=== PATIENT | male | born 1960 | race Caucasian/White ===

== ENCOUNTER 2017-05-20 21:10 | Emergency (ER) | payer BC ==
[2017-05-20 21:20] VITALS: RESP 18; TEMP 98.3
--- NOTE | 2017-05-20 21:23 | ED ---
Chest Pain HPI - General Chief Complaint: Chest Pain Stated Complaint: Chest Pain Time Seen by Provider: 05/20/17 21:12 Source: patient, EMS Mode of arrival: EMS Limitations: no limitations - History of Present Illness Initial Comments: This patient is a 56-year-old man who states that he's been having about 3 days of intermittent left-sided chest pains. He states that it became more intense tonight while he was playing cards. EMS was phoned and they did give him a nitroglycerin which she states has relieve the pain. Patient had radiation of the pain to his jaw. He has not noted any other relieving or any worsening factors. He denies associated symptoms. MD Complaint: chest pain Onset/Timin -: days(s) Onset: during rest Pain Location: left chest Pain Radiation: jaw/teeth Severity: moderate Quality: tightness Consistency: intermittent, now resolved Improves With: nitroglycerin Worsens With: nothing Treatments Prior to Arrival: aspirin, nitroglycerin - Related Data Home Medications Medication Instructions Recorded Confirmed Aspirin 81 mg PO HS 05/18/15 06/07/15 Atorvastatin [Lipitor] 40 mg PO HS 05/18/15 06/07/15 Cilostazol [Pletal] 100 mg PO BID 05/18/15 06/07/15 Allergies Allergy/AdvReac Type Severity Reaction Status Date / Time No Known Allergies Allergy Verified 05/18/15 20:05 Review of Systems ROS Statement: Those systems with pertinent positive or pertinent negative responses have been documented in the HPI. ROS Other: All systems not noted in ROS Statement are negative. Constitutional: Denies: fever, chills, weakness Respiratory: Denies: cough, dyspnea Cardiovascular: Reports: as per HPI, chest pain. Denies: palpitations, dyspnea on exertion, orthopnea, edema, syncope Gastrointestinal: Denies: abdominal pain, vomiting, diarrhea Genitourinary: Denies: dysuria, hematuria Skin: Denies: rash Neurological: Denies: headache, weakness, numbness Hematological/Lymphatic: Denies: easy bleeding EKG Findings - EKG Results: EKG: interpreted by MARIZOL WNL, sinus rhythm (Rate 74 bpm), normal axis, normal QRS, normal ST/T, no acute changes - AL, Pacemaker, Normal: Normal tracing: normal tracing Past Medical History Additional Past Medical History / Comment(s): Aortic blockage, High Cholestrol, Chronic Leg Pain. History of Any Multi-Drug Resistant Organisms: None Reported Past Surgical History: Cholecystectomy Past Anesthesia/Blood Transfusion Reactions: No Reported Reaction Past Psychological History: No Psychological Hx Reported Smoking Status: Current every day smoker Past Alcohol Use History: None Reported Past Drug Use History: None Reported - Past Family History Father Family Medical History: Hyperlipidemia General Exam Limitations: no limitations General appearance: alert, in no apparent distress Head exam: Present: atraumatic, normocephalic Eye exam: Present: normal appearance Neck exam: Present: normal inspection, full ROM Respiratory exam: Present: normal lung sounds bilaterally. Absent: respiratory distress, wheezes, rales, rhonchi, stridor, chest wall tenderness Cardiovascular Exam: Present: regular rate, normal rhythm, normal heart sounds. Absent: systolic murmur, diastolic murmur, rubs, gallop GI/Abdominal exam: Present: soft. Absent: distended, tenderness, guarding, rebound, mass Extremities exam: Present: normal inspection, normal capillary refill. Absent: pedal edema, calf tenderness Back exam: Present: normal inspection. Absent: CVA tenderness (R), CVA tenderness (L) Neurological exam: Present: alert Skin exam: Present: warm, dry, intact, normal color. Absent: rash Course Vital Signs 05/20/17 05/20/17 21:15 22:47 Temperature 98.3 F Pulse Rate 79 69 Respiratory 18 18 Rate Blood Pressure 124/77 101/61 O2 Sat by Pulse 96 96 Oximetry Chest Pain MDM - MDM Discussed the findings with the patient, and on reevaluation he remains asymptomatic. Recommended telemetry admission overnight as well as cardiology consultation, though I suspect that is more likely patient's symptoms are related to some pancreatitis. Also recommended imaging. The patient states that he would much rather go home and follow-up to have the imaging done and will return if the symptoms recur or if there is worsening in any way. Patient does understand that we have not been able to rule out cardiac etiology of pain and will return if any of the symptoms recur. Understands there is small possibility of AL, permanent disability/ Disposition Clinical Impression: Chest pain, Pancreatitis Disposition: Left Against Medical Advice Condition: Good Instructions: Chest Pain (ED), Pancreatitis (ED) Referrals: Yaya Rojas DO [Primary Care Provider] - 1-2 days
[2017-05-20 21:34] LABS: Basophils # (A) 0.1 k/uL (0-0.2); Basophils % (A) 1 %; CH 33.9; CHCM 34.3; Eosinophils # (A) 0.3 k/uL (0-0.7); Eosinophils % (A) 3 %; HCT 43.2 % (39.0-53.0); HDW 2.32; HGB 14.5 gm/dL (13.0-17.5); Luc # (Auto) 0.33; Luc % (Auto) 3; Lymphocytes # (A) 4.5 k/uL (1.0-4.8); Lymphocytes % (A) 44 %; MCH 33.3 pg (25.0-35.0); MCHC 33.5 g/dL (31.0-37.0); MCV 99.6 fL (80.0-100.0); Mean Platelet Volume 7.7; Monocytes # (A) 0.6 k/uL (0-1.0); Monocytes % (A) 6 %; Neutrophils # (A) 4.3 k/uL (1.3-7.7); Neutrophils % (A) 42 %; RBC 4.34 m/uL (4.30-5.90); RDW 14.5 % (11.5-15.5); WBC 10.1 k/uL (3.8-10.6); WBC (Perox) 9.79
[2017-05-20 21:48] LABS: ALT 35 U/L (21-72); AST 27 U/L (17-59); Alkaline Phosphatase 104 U/L (38-126); Amylase 207 U/L (30-110); Anion Gap 12 mmol/L; Blood Urea Nitrogen 8 mg/dL (9-20); Calcium 8.9 mg/dL (8.4-10.2); Carbon Dioxide 22 mmol/L (22-30); Chloride 108 mmol/L (98-107); Glucose 81 mg/dL (74-99); Magnesium 1.8 mg/dL (1.6-2.3); Non-African American GFR(MDRD) >60 (>60 ml/min/1.73 sqM); Potassium 4.4 mmol/L (3.5-5.1); Sodium 142 mmol/L (137-145); Total Bilirubin 0.3 mg/dL (0.2-1.3); Total Protein 6.6 g/dL (6.3-8.2)
[2017-05-20 21:50] LABS: INR 0.9 (<1.2); Partial Thromboplastin Time 25.7 sec (22.0-30.0); Prothrombin Time 9.7 sec (9.0-12.0)
--- NOTE | 2017-05-20 21:52 | XR ---
EXAMINATION TYPE: XR chest 2V DATE OF EXAM: 05/20/2017 COMPARISON: 06/07/2015 INDICATION: Chest pain 3 days TECHNIQUE: Frontal and lateral views of the chest are obtained. FINDINGS: The heart size is normal. The pulmonary vasculature is normal. The lungs are clear. IMPRESSION: 1. No acute pulmonary process.
[2017-05-20 22:48] VITALS: BP 101/61; PULSE 69
== END 2017-05-20 23:35 | disposition left against medical advice (07) ==
LOC: EC 21:10
DX: K85.90 Acute pancreatitis without necrosis or infection, unspecified (principal); R07.89 Other chest pain; F17.200 Nicotine dependence, unspecified, uncomplicated; Z79.82 Long term (current) use of aspirin; Z79.899 Other long term (current) drug therapy
CPT/HCPCS: 36415; 71020; 80053; 82150; 83690; 83735; 84484; 85025; 85379; 85610; 85730; 93005; 99285

== ENCOUNTER → 2017-06-06 | Outpatient (CLI) | payer BC ==
--- NOTE | 2017-06-07 07:41 | USB ---
Reason for exam: clinical finding. History: Family history of breast cancer in sister at age 58 and breast cancer in maternal grandmother. Indicated problem(s): lump or thickening in the left breast. Physical Findings: Nurse Summary: Patient complains of left breast lump x 3 years 10-11 o'clock (nurse mj). US Breast LT Left breast ultrasound includes all four quadrants, the retroareolar region and axilla. Finding demonstrates a 3.3 x 2.3 x 0.7cm oval, hyperechoic lesion at 11 o'clock palpable, suspect lipoma. These results were verbally communicated with the patient and result sheet given to the patient on 06/06/17. ASSESSMENT: Probably benign, BI-RAD 3 RECOMMENDATION: Clinical management of the left breast. CONSIDER SURGICAL CONSULTATION.
== END | disposition home or self-care (01) ==
LOC: RADUSWWP 15:31
PROVIDERS: ATTEND Family Medicine
DX: N63 Unspecified lump in breast (principal)

== ENCOUNTER 2018-01-06 03:00 | Emergency (ER) | payer BC, OTHER ==
--- NOTE | 2018-01-06 03:11 | ED ---
General Adult HPI - General Stated complaint: Nausea Time Seen by Provider: 01/06/18 03:00 Source: RN notes reviewed - History of Present Illness Initial comments: This is a 57-year-old male who presents emergency Department stating he woke up and was very nauseated he try to go to the bathroom but when he started walking he became very lightheaded and dizzy and he didn't feel like he couldn't walk anymore. So he told his called EMS and brought to the emergency department. Patient denies any vomiting or diarrhea. Patient denies any abdominal discomfort. Patient denies any chest pain difficulty breathing shortness of breath or palpitations. Patient states prior to bed he felt fine. Patient denies any fever chills or cough. Patient states she got some Zofran in the ambulance and that seemed to help the nausea. Patient states lying in bed he is no longer dizzy. Patient denies headache patient denies numbness weakness. - Related Data Home Medications Medication Instructions Recorded Confirmed Aspirin 81 mg PO HS 05/18/15 06/07/15 Atorvastatin [Lipitor] 40 mg PO HS 05/18/15 06/07/15 Cilostazol [Pletal] 100 mg PO BID 05/18/15 06/07/15 Allergies Allergy/AdvReac Type Severity Reaction Status Date / Time No Known Allergies Allergy Verified 05/18/15 20:05 Review of Systems ROS Statement: Those systems with pertinent positive or pertinent negative responses have been documented in the HPI. ROS Other: All systems not noted in ROS Statement are negative. Past Medical History Additional Past Medical History / Comment(s): Aortic blockage, High Cholestrol, Chronic Leg Pain. History of Any Multi-Drug Resistant Organisms: None Reported Past Surgical History: Cholecystectomy Past Anesthesia/Blood Transfusion Reactions: No Reported Reaction Past Psychological History: No Psychological Hx Reported Smoking Status: Current every day smoker Past Alcohol Use History: None Reported Past Drug Use History: None Reported - Past Family History Father Family Medical History: Hyperlipidemia General Exam - General Exam Comments Initial Comments: GENERAL: Patient is well-developed and well-nourished. Patient is nontoxic and well- hydrated and is in no acute distress. ENT: Neck is soft and supple. No significant lymphadenopathy is noted. Oropharynx is clear. Moist mucous membranes. Neck has full range of motion without eliciting any pain. EYES: The sclera were anicteric and conjunctiva were pink and moist. Extraocular movements were intact and pupils were equal round and reactive to light. Eyelids were unremarkable. PULMONARY: Unlabored respirations. Good breath sounds bilaterally. No audible rales rhonchi or wheezing was noted. CARDIOVASCULAR: There is a regular rate and rhythm without any murmurs gallops or rubs. ABDOMEN: Soft and nontender with normal bowel sounds. No palpable organomegaly was noted. There is no palpable pulsatile mass. SKIN: Skin is clear with no lesions or rashes and otherwise unremarkable. NEUROLOGIC: Patient is alert and oriented x3. Cranial nerves II through XII are grossly intact. Motor and sensory are also intact. Normal speech, volume and content. Symmetrical smile. MUSCULOSKELETAL: Normal extremities with adequate strength and full range of motion. No lower extremity swelling or edema. No calf tenderness. LYMPHATICS: No significant lymphadenopathy is noted PSYCHIATRIC: Normal psychiatric evaluation. Normal interpersonal interactions appears functionally intact in deals appropriately with others. No signs of depression. Course Vital Signs 01/06/18 01/06/18 01/06/18 03:08 03:20 03:25 Temperature 97.0 F L Pulse Rate 70 Pulse Rate [ 68 Prone] Pulse Rate [ 64 Sitting] Pulse Rate [ Standing] Respiratory 14 16 16 Rate Blood Pressure 127/82 Blood Pressure 119/66 130/73 [Supine] O2 Sat by Pulse 92 L Oximetry 01/06/18 01/06/18 01/06/18 04:37 04:38 04:44 Temperature 97.5 F L Pulse Rate 72 69 Pulse Rate [ Prone] Pulse Rate [ Sitting] Pulse Rate [ 73 Standing] Respiratory 18 16 Rate Blood Pressure 132/70 116/65 Blood Pressure 134/81 [Supine] O2 Sat by Pulse 99 93 L Oximetry Medical Decision Making - Medical Decision Making No nursing notes that the patient was diaphoretic he was not at all diaphoretic on arrival EKG shows normal sinus rhythm at 63 bpm TX interval 170 QRS is 90 QT intervals 414 QTC is 423. Patient has no ST segment elevation or depression or T wave abnormalities are noted Patient is no longer nauseated. Patient still longer dizzy. Patient was able to ambulate around the emergency department without problem. - Lab Data Result diagrams: 01/06/18 03:23 01/06/18 03:23 Lab Results 01/06/18 01/06/18 01/06/18 Range/Units 03:14 03:23 03:23 WBC 9.7 (3.8-10.6) k/uL RBC 4.45 (4.30-5.90) m/uL Hgb 14.5 (13.0-17.5) gm/dL Hct 41.2 (39.0-53.0) % MCV 92.6 (80.0-100.0) fL MCH 32.6 (25.0-35.0) pg MCHC 35.2 (31.0-37.0) g/dL RDW 13.4 (11.5-15.5) % Plt Count 309 (150-450) k/uL Neutrophils % 52 % Lymphocytes % 36 % Monocytes % 6 % Eosinophils % 3 % Basophils % 0 % Neutrophils # 5.0 (1.3-7.7) k/uL Lymphocytes # 3.5 (1.0-4.8) k/uL Monocytes # 0.5 (0-1.0) k/uL Eosinophils # 0.3 (0-0.7) k/uL Basophils # 0.0 (0-0.2) k/uL Sodium (137-145) mmol/L Potassium (3.5-5.1) mmol/L Chloride (98-107) mmol/L Carbon Dioxide (22-30) mmol/L Anion Gap mmol/L BUN (9-20) mg/dL Creatinine (0.66-1.25) mg/dL Est GFR (CKD-EPI)AfAm (>60 ml/min/1.73 sqM) Est GFR (CKD-EPI)NonAf (>60 ml/min/1.73 sqM) Glucose (74-99) mg/dL POC Glucose (mg/dL) 99 (75-99) mg/dL POC Glu [employer] ID Karthikeyan Collazo Calcium (8.4-10.2) mg/dL Magnesium (1.6-2.3) mg/dL Total Bilirubin (0.2-1.3) mg/dL AST (17-59) U/L ALT (21-72) U/L Alkaline Phosphatase (38-126) U/L Total Creatine Kinase 94 (55-170) U/L CK-MB (CK-2) 0.7 (0.0-2.4) ng/mL CK-MB (CK-2) Rel Index 0.7 Troponin I <0.012 (0.000-0.034) ng/mL Total Protein (6.3-8.2) g/dL Albumin (3.5-5.0) g/dL 01/06/18 Range/Units 03:23 WBC (3.8-10.6) k/uL RBC (4.30-5.90) m/uL Hgb (13.0-17.5) gm/dL Hct (39.0-53.0) % MCV (80.0-100.0) fL MCH (25.0-35.0) pg MCHC (31.0-37.0) g/dL RDW (11.5-15.5) % Plt Count (150-450) k/uL Neutrophils % % Lymphocytes % % Monocytes % % Eosinophils % % Basophils % % Neutrophils # (1.3-7.7) k/uL Lymphocytes # (1.0-4.8) k/uL Monocytes # (0-1.0) k/uL Eosinophils # (0-0.7) k/uL Basophils # (0-0.2) k/uL Sodium 140 (137-145) mmol/L Potassium 4.2 (3.5-5.1) mmol/L Chloride 107 (98-107) mmol/L Carbon Dioxide 23 (22-30) mmol/L Anion Gap 10 mmol/L BUN 13 (9-20) mg/dL Creatinine 0.74 (0.66-1.25) mg/dL Est GFR (CKD-EPI)AfAm >90 (>60 ml/min/1.73 sqM) Est GFR (CKD-EPI)NonAf >90 (>60 ml/min/1.73 sqM) Glucose 97 (74-99) mg/dL POC Glucose (mg/dL) (75-99) mg/dL POC Glu [employer] ID Calcium 9.0 (8.4-10.2) mg/dL Magnesium 2.0 (1.6-2.3) mg/dL Total Bilirubin 0.3 (0.2-1.3) mg/dL AST 29 (17-59) U/L ALT 50 (21-72) U/L Alkaline Phosphatase 117 (38-126) U/L Total Creatine Kinase (55-170) U/L CK-MB (CK-2) (0.0-2.4) ng/mL CK-MB (CK-2) Rel Index Troponin I (0.000-0.034) ng/mL Total Protein 6.0 L (6.3-8.2) g/dL Albumin 3.4 L (3.5-5.0) g/dL Critical Care Time Critical Care Time: Yes Total Critical Care Time: 35 Disposition Clinical Impression: Nausea, Dizziness Disposition: HOME SELF-CARE Condition: Good Instructions: Dizziness (ED) Referrals: Yaya Rojas DO [Primary Care Provider] - 1-2 days Time of Disposition: 04:38
[2018-01-06 03:16] LABS: Glucose,Whole Blood 99 mg/dL (75-99)
[2018-01-06 03:39] LABS: Basophils % (A) 0 %; Eosinophils # (A) 0.3 k/uL (0-0.7); Eosinophils % (A) 3 %; HCT 41.2 % (39.0-53.0); HGB 14.5 gm/dL (13.0-17.5); Lymphocytes # (A) 3.5 k/uL (1.0-4.8); Lymphocytes % (A) 36 %; MCH 32.6 pg (25.0-35.0); MCHC 35.2 g/dL (31.0-37.0); MCV 92.6 fL (80.0-100.0); Mean Platelet Volume 7.1; Monocytes # (A) 0.5 k/uL (0-1.0); Monocytes % (A) 6 %; Neutrophils % (A) 52 %; Platelet Count 309 k/uL (150-450); RBC 4.45 m/uL (4.30-5.90); RDW 13.4 % (11.5-15.5); WBC 9.7 k/uL (3.8-10.6)
[2018-01-06 03:47] LABS: ALT 50 U/L (21-72); AST 29 U/L (17-59); Albumin 3.4 g/dL (3.5-5.0); Alkaline Phosphatase 117 U/L (38-126); Anion Gap 10 mmol/L; Blood Urea Nitrogen 13 mg/dL (9-20); Carbon Dioxide 23 mmol/L (22-30); Chloride 107 mmol/L (98-107); Glucose 97 mg/dL (74-99); Potassium 4.2 mmol/L (3.5-5.1); Sodium 140 mmol/L (137-145); Total Bilirubin 0.3 mg/dL (0.2-1.3)
--- NOTE | 2018-01-06 03:51 | XR ---
EXAMINATION TYPE: XR chest 2V DATE OF EXAM: 01/06/2018 COMPARISON: 05/20/2017 HISTORY: Nausea and pain TECHNIQUE: Frontal and lateral views of the chest are obtained. FINDINGS: Heart and mediastinum are normal. There is no pleural effusion. Lungs are clear of consoli dation. There is slight increased markings at the lung bases. There is poor inspiration. IMPRESSION: There is mild subsegmental atelectasis at the lung bases that is new compared to old exa m. Inspiration is decreased. Normal heart. No heart failure.
[2018-01-06 03:56] LABS: Creatine Kinase 94 U/L (55-170)
[2018-01-06 04:09] LABS: Creatine Kinase MB 0.7 ng/mL (0.0-2.4); Troponin I <0.012 ng/mL (0.000-0.034)
[2018-01-06] MEDS ORDERED: ONDANSETRON 4 MG ODT STARTER PACK 2 TAB BTL PO STA (04:38)
[2018-01-06 04:41] VITALS: TEMP 97.5
[2018-01-06] MEDS ORDERED: cefTRIAXone IN SWFI 1,000 MG/10 ML SYRINGE IVP STA (04:44)
[2018-01-06] MEDS ORDERED: AZITHROMYCIN 500 MG in SODIUM CHLORIDE 0.9% 250 ML IVPB STA (04:45)
[2018-01-06 04:46] VITALS: BP 116/65; PULSE 69; RESP 16
== END 2018-01-06 05:09 | disposition home or self-care (01) ==
LOC: EC 03:00
DX: R42 Dizziness and giddiness (principal); R11.0 Nausea; E78.00 Pure hypercholesterolemia, unspecified; F17.200 Nicotine dependence, unspecified, uncomplicated; Z79.82 Long term (current) use of aspirin; Z79.899 Other long term (current) drug therapy; Z53.20 Procedure and treatment not carried out because of patient's decision for unspecified reasons
CPT/HCPCS: 36415; 71046; 80053; 82550; 82553; 83735; 84484; 85025; 93005; 99285

== ENCOUNTER → 2018-10-23 | Outpatient (CLI) | payer OTHER ==
--- NOTE | 2018-10-23 10:37 | MR ---
EXAMINATION TYPE: MR lumbar spine wo con DATE OF EXAM: 10/23/2018 COMPARISON: NONE HISTORY: Disc degeneration / Radiculopathy TECHNIQUE: T1 and T2 axial and sagittal images of the lumbar spine are submitted. FINDINGS: There is no abnormal signal seen within the visualized spinal cord or paraspinal soft tissu es. At L1-2 there is no disc herniation or canal stenosis. No foraminal encroachment. At L2-3 there is degenerative disc disease and broad-based disc bulging. Hypertrophy of the facet sean nts. No canal stenosis or foraminal encroachment. At L3-4 there is degenerative disc disease with circumferential disc bulging and hypertrophic change facets. No Canal stenosis. Neural foramina remain patent. At L4-5 there is a broad-based central disc bulging with hypertrophy of the facet joints and ligament um flavum. Borderline central stenosis with mild bilateral foraminal encroachment. At L5-S1 there is degenerative disc disease with broad-based central disc protrusion. Hypertrophic ch tabby of the facets. Mild bilateral foraminal encroachment. IMPRESSION: 1. Multilevel degenerative disc disease and facet arthropathy with disc bulging at multiple levels. B orderline central stenosis L4-L5. 2. Mild foraminal encroachment L4-5 and L5-S1. 3. Broad-based central disc protrusion L5-S1. Mild effacement of thecal sac. EXAMINATION TYPE: MR cervical spine wo con DATE OF EXAM: 10/23/2018 COMPARISON: NONE HISTORY: Disc degeneration / Radiculopathy TECHNIQUE: T1 sagittal and coronal, T2 sagittal, and gradient echo axial views of the cervical spine are submitted. FINDINGS: Cerebellar tonsils are low-lying in position measuring approximately 2 to 3 mm below the fo ramen magnum. Correlate for Chiari I malformation. There is no abnormal signal seen within the spina l cord or paraspinal soft tissues. There is asymmetric abnormal signal involving the hypopharynx a mu cosal lesion is not excluded direct visualization is recommended findings seen at the level of the ep iglottis and paramedian to the left. Changes of chronic sinusitis. At C2-3 there is no disc herniation or canal stenosis. Neural foramina are patent. At C3-4 there is no disc herniation or canal stenosis. Very mild central disc bulging. Uncovertebral joint hypertrophy and facet arthropathy noted. Mild bilateral foraminal encroachment. No Canal stenos is. At C4-5 there is small focal central disc protrusion with mild effacement of thecal sac. Mild uncover tebral joint hypertrophy. Very mild bilateral foraminal encroachment. No nerve root impingement. At C5-6 there is degenerative disc disease with central disc bulging. Mild uncovertebral joint hypert rophy. Mild bilateral foraminal encroachment. There is mild effacement of thecal sac with very mild c entral disc bulging. At C6-7 there is broad-based central disc bulging. There is mild bilateral foraminal encroachment. Mi ld effacement of thecal sac. At C7-T1 there is no disc herniation or canal stenosis. No foraminal encroachment. IMPRESSION: 1. Multilevel degenerative disc disease with multilevel facet arthropathy and uncovertebral joint hy pertrophy contributing to multilevel mild foraminal encroachment. 2. Small focal central disc protrusion with mild effacement of thecal sac C4-C5. 3. Central disc bulging C5-6 and C6-C7 with mild effacement of thecal sac. 4. Low-lying cerebellar tonsils correlate for Chiari I malformation. 5. There is asymmetric abnormal signal involving the hypopharynx paramedian to the left at the level of the epiglottis. A mucosal lesion is in the differential diagnosis and ENT consultation is suggeste d. Malignancy in the differential diagnosis. Recommend CT soft tissue of the neck. 6. The abdominal aorta becomes markedly diminutive above the level of the bifurcation. This is stable relative to a CT scan performed 08/03/2018. Aortic occlusion or stenosis in the differential diagnosi s.
== END | disposition home or self-care (01) ==
LOC: RADMRIMAIN 09:04
PROVIDERS: ATTEND Family Medicine
DX: M50.322 Other cervical disc degeneration at C5-C6 level (principal); M46.82 Other specified inflammatory spondylopathies, cervical region; M50.223 Other cervical disc displacement at C6-C7 level; M48.061 Spinal stenosis, lumbar region without neurogenic claudication; M51.17 Intervertebral disc disorders with radiculopathy, lumbosacral region; M51.36 Other intervertebral disc degeneration, lumbar region; M46.86 Other specified inflammatory spondylopathies, lumbar region
CPT/HCPCS: 72141; 72148

== ENCOUNTER → 2018-11-05 | Outpatient (CLI) | payer OTHER ==
--- NOTE | 2018-11-05 08:26 | CT ---
EXAMINATION TYPE: CT soft tissue neck w con DATE OF EXAM: 11/05/2018 COMPARISON: None HISTORY: Neck lesion CT DLP: 589 mGycm CONTRAST: CT scan of the neck is performed with IV Contrast, patient injected with 100 mL of Isovue 300. Contrast enhanced CT of the neck was performed from the skull base through the lung apices. AIRWAY: There is asymmetric soft tissue within the hypopharynx to the left of midline at the level of the epiglottis seen best on image 44 and measures approximately 13 x 12 mm. Underlying lesion is dif ficult to exclude. ENT consult recommended. Malignancy not excluded. SALIVARY GLANDS: The submandibular and parotid glands are free of mass or inflammatory process. THYROID GLAND: No nodules or masses seen. LYMPH NODES: No adenopathy seen greater than 1cm. LUNG APICES: No nodule or mass is seen. OTHER: Vascular structures are patent. Mild degenerative change cervical spine. No abscess seen. IMPRESSION: There is asymmetric soft tissue within the hypopharynx to the left of midline at the level of the epi glottis seen best on image 44 and measures approximately 13 x 12 mm. Underlying lesion is difficult t o exclude. ENT consult recommended. Malignancy not excluded.
== END | disposition home or self-care (01) ==
LOC: RADCTMAIN 06:50
PROVIDERS: ATTEND Family Medicine
DX: J39.2 Other diseases of pharynx (principal)
CPT/HCPCS: 70491; Q9967

== ENCOUNTER 2018-11-28 10:07 | Day surgery (SDC) | payer OTHER ==
[2018-11-22 13:54] VITALS: BMI 25.5
[~2018-11-28 10:07] MED LIST: DEXAMETHASONE SOD PHOSPHATE 10 MG/ML 1 ML VIAL IV ONE; DEXAMETHASONE SOD PHOSPHATE 4 MG/ML 1 ML VIAL IV ONE; FAMOTIDINE 20 MG/2 ML VIAL IV ONE; HYDROmorphone 0.5 MG/0.5 ML SYRINGE IVP PRN; LACTATED RINGERS 1,000 ML IV SCH; MIDAZOLAM 2 MG/2 ML VIAL IV PRN; ONDANSETRON 4 MG/2 ML VIAL IVP ONE; SCOPOLAMINE 1.5MG/72HR PATCH TRANSDERM ONE; ceFAZolin 1,000 MG in DEXTROSE/WATER 1 50ML.BAG IV ONE
[2018-11-28 11:57] VITALS: RESP 16
[2018-11-28] MEDS: ONDANSETRON 4 MG/2 ML VIAL IVP ONE ×2 (12:07→13:21)
[2018-11-28] MEDS ORDERED: fentaNYL (PF) 50 MCG/ML 2 ML AMP ONE (12:32)
[2018-11-28] MEDS ORDERED: PROPOFOL 10 MG/ML 20 ML VIAL IV ONE (12:32)
[2018-11-28] MEDS ORDERED: ROCURONIUM BROMIDE 10 MG/ML 10 ML VIAL IV ONE (12:32)
[2018-11-28] MEDS ORDERED: MIDAZOLAM 2 MG/2 ML VIAL ONE (12:32)
[2018-11-28] MEDS ORDERED: GLYCOPYRROLATE 0.2 MG/ML 2 ML VIAL ONE (12:32)
[2018-11-28] MEDS ORDERED: NEOSTIGMINE 1 MG/ML 10 ML VIAL ONE (12:32)
[2018-11-28] MEDS ORDERED: LIDOCAINE 1% INJ 10MG/ML (20 ML MDV) ONE (12:32)
--- NOTE | 2018-11-28 13:09 | P.OP ---
Date of Procedure: 11/28/18 Preoperative Diagnosis: Lingual tonsillar hypertrophy Postoperative Diagnosis: Same Procedure(s) Performed: Microlaryngoscopy with biopsy left base of tongue Surgeon: Rei Brennan Estimated Blood Loss (ml): 2 Pathology: other (Left base of tongue) Condition: stable Disposition: PACU Indications for Procedure: Is a 58-year-old white male who had incidental finding of some asymmetry at the left base of tongue on an MRI of the cervical spine Operative Findings: Diffuse lingual tonsillar hypertrophy but asymmetry on the left-there was an area approximately 1.5 cm across with lingual tonsillar hypertrophy on the left which was biopsied at multiple sites this was soft but mildly erythematous Description of Procedure: The patient was brought in the operative suite and placed in a supine position. The patient underwent induction of general anesthesia with oral endotracheal intubation without difficulty. The patient was prepped and draped in usual aseptic fashion. Direct laryngoscopy was performed with systematic evaluation of the base of tongue vallecula both piriform sinuses post cricoid area and endolarynx. The only abnormality noted was at the left base of tongue and the laryngoscope was placed in position and placed in suspension to visualize this area. The Zeiss microscope was then brought in position and multiple biopsies were taken in this area tongue and sent for permanent section. Hemostasis was gained spontaneously. The patient was then suctioned in the hypopharynx and larynx and laryngoscope removed. The tooth guard was in place throughout the case was also removed. The patient was allowed to emerge from general anesthesia having tolerated procedure well and was extubated in the operating suite and transferred to the postop recovery area in satisfactory condition.
[2018-11-28 13:22] VITALS: TEMP 97.5
[2018-11-28 14:28] VITALS: BP 123/77; PULSE 63
== END 2018-11-28 14:39 | disposition home or self-care (01) ==
LOC: OR 10:07
PROVIDERS: ATTEND Otolaryngology
DX: J35.1 Hypertrophy of tonsils (principal); K21.9 Gastro-esophageal reflux disease without esophagitis; F32.9 Major depressive disorder, single episode, unspecified; H91.90 Unspecified hearing loss, unspecified ear; I35.0 Nonrheumatic aortic (valve) stenosis; E78.00 Pure hypercholesterolemia, unspecified; K58.9 Irritable bowel syndrome, unspecified; I73.9 Peripheral vascular disease, unspecified; Z79.02 Long term (current) use of antithrombotics/antiplatelets; Z79.899 Other long term (current) drug therapy; Z80.3 Family history of malignant neoplasm of breast; F17.210 Nicotine dependence, cigarettes, uncomplicated
CPT/HCPCS: 88305

== ENCOUNTER 2018-12-11 07:55 | Day surgery (SDC) | payer OTHER ==
[2018-12-07 14:48] VITALS: BMI 25.7
[~2018-12-11 07:55] MED LIST changes: -DEXAMETHASONE SOD PHOSPHATE 10 MG/ML 1 ML VIAL IV ONE; -DEXAMETHASONE SOD PHOSPHATE 4 MG/ML 1 ML VIAL IV ONE; -FAMOTIDINE 20 MG/2 ML VIAL IV ONE; -HYDROmorphone 0.5 MG/0.5 ML SYRINGE IVP PRN; -MIDAZOLAM 2 MG/2 ML VIAL IV PRN; -ONDANSETRON 4 MG/2 ML VIAL IVP ONE; -SCOPOLAMINE 1.5MG/72HR PATCH TRANSDERM ONE; -ceFAZolin 1,000 MG in DEXTROSE/WATER 1 50ML.BAG IV ONE
[2018-12-11 08:22] VITALS: TEMP 97.1
[2018-12-11] MEDS ORDERED: PROPOFOL 10 MG/ML 20 ML VIAL IV ONE (09:29)
[2018-12-11] MEDS ORDERED: fentaNYL (PF) 50 MCG/ML 2 ML AMP ONE (09:29)
[2018-12-11] MEDS ORDERED: LIDOCAINE 1% INJ 10MG/ML (20 ML MDV) ONE (09:29)
--- NOTE | 2018-12-11 10:03 | P.PCN ---
Date of Procedure: 12/11/18 Procedure(s) Performed: Procedure: Colonoscopy and biopsy. Preoperative diagnosis: History of polyps and chronic diarrhea. Postoperative diagnosis: 1. Sigmoid diverticulosis with no evidence of acute diverticulitis or strictures. 2. Diminutive polyp in the rectum biopsied but no large polyps or cancer. 3. Otherwise, normal colon and terminal ileum, biopsies obtained from the terminal ileum and right colon. Preparation: HalfLytely prep. Sedation: Was provided by anesthesia. Brief clinical history: The patient is a 58-year-old male who is scheduled for this evaluation because of chronic diarrhea, history of polyps and ? History of colitis. Procedure: With the patient on his left lateral decubitus position and after informed consent and adequate sedation, the perianal area was inspected and it did not show any fissures or fistulas. There were no masses felt on digital rectal examination. The Olympus CFH 190L video colonoscope was then inserted in the rectum in the usual fashion and advanced to the cecum. I intubated the ileocecal valve and examined the terminal ileum. Terminal ileum and colon appeared healthy with no edema, erythema, friability, ulceration, exudation or spontaneous bleeding. There was a diminutive polyp in the rectum which was biopsied but there were no large polyps or cancer. Several diverticular orifices were seen scattered in the sigmoid with no evidence of acute diverticulitis or strictures. I obtained biopsies from the terminal ileum and right colon then I retroflexed the endoscope in the rectum before the endoscope was withdrawn. Low-grade internal hemorrhoids were noted with no evidence of bleeding. The patient tolerated the procedure well. Plan: The patient was reassured. Discussed dietary measures. Will await biopsy results and make further plans. With the history of polyps, a repeat exam in 5 years was recommended. He will follow up with you as planned.
[2018-12-11 10:10] VITALS: BP 112/71; PULSE 57; RESP 18
== END 2018-12-11 10:18 | disposition home or self-care (01) ==
LOC: ORWHC2ENDO 07:55
DX: K62.1 Rectal polyp (principal); K57.30 Diverticulosis of large intestine without perforation or abscess without bleeding; K64.8 Other hemorrhoids; Z86.010 Personal history of colon polyps; E78.5 Hyperlipidemia, unspecified; I73.9 Peripheral vascular disease, unspecified; Z79.02 Long term (current) use of antithrombotics/antiplatelets; Z79.899 Other long term (current) drug therapy; F17.200 Nicotine dependence, unspecified, uncomplicated
CPT/HCPCS: 88305; 45380; J2001; J3010; J2704

== ENCOUNTER 2019-08-20 12:31 | Emergency (ER) | payer BC, OTHER ==
[2019-08-20 12:38] VITALS: BP 122/75; PULSE 72; RESP 18; TEMP 97.8
--- NOTE | 2019-08-20 13:20 | ED ---
Wound/Laceration HPI - General Chief Complaint: Wound/Laceration Stated Complaint: previous hand lac/needs new stitches Time Seen by Provider: 08/20/19 12:45 Source: patient, RN notes reviewed, old records reviewed Mode of arrival: ambulatory Limitations: no limitations - History of Present Illness Initial Comments: Patient is a 59-year-old male presents with left hand wound he has since from the sutures being pulled. Patient ports they had the sutures placed on 08/14/2019. This was done by his primary care physician. Patient reports he used his hand and it became looser at the stitches. He went to his primary care doctor for follow up and they sent him here for concern for wound dihiscence. Denies bleeding or drainage or swelling, or erythema. . - Related Data Home Medications Medication Instructions Recorded Confirmed Atorvastatin [Lipitor] 80 mg PO HS 05/18/15 12/11/18 Cilostazol [Pletal] 100 mg PO BID 05/18/15 12/07/18 Escitalopram [Lexapro] 10 mg PO QAM 12/07/18 12/11/18 Allergies Allergy/AdvReac Type Severity Reaction Status Date / Time No Known Allergies Allergy Verified 08/20/19 12:38 Review of Systems ROS Statement: Those systems with pertinent positive or pertinent negative responses have been documented in the HPI. ROS Other: All systems not noted in ROS Statement are negative. Past Medical History Past Medical History: Hyperlipidemia, Vascular Disorder Additional Past Medical History / Comment(s): Severe aortic blockage below renal artery-has been seen at [facility], [facility] and [facility], chronic bilateral leg pain, bilateral hands/feet numbness and tingling, optic migraines, sepsis in 2014, 2 lesions in throat History of Any Multi-Drug Resistant Organisms: None Reported Past Surgical History: Cholecystectomy Additional Past Surgical History / Comment(s): Microlaryngoscopy 11-28-18,Colonoscopy, anal fissure repair, colonoscopy with benign polypectomy Past Anesthesia/Blood Transfusion Reactions: No Reported Reaction Additional Past Anesthesia/Blood Transfusion Reaction / Comment(s): states has experienced balance issues after anesthesia Past Psychological History: Depression Smoking Status: Current every day smoker Past Alcohol Use History: None Reported Past Drug Use History: None Reported - Past Family History Mother Family Medical History: No Reported History Father Family Medical History: Hyperlipidemia, Hypertension, Myocardial Infarction ([place]) Additional Family Medical History / Comment(s): Father of a [place] in his 70s General Exam - General Exam Comments Initial Comments: Pleasant 59 year old male, no distress. Limitations: no limitations General appearance: alert, in no apparent distress Head exam: Present: atraumatic, normocephalic, normal inspection Eye exam: Present: normal appearance, PERRL, EOMI. Absent: scleral icterus, conjunctival injection, periorbital swelling ENT exam: Present: normal exam, mucous membranes moist Neck exam: Present: normal inspection. Absent: tenderness, meningismus, lymphadenopathy Respiratory exam: Present: normal lung sounds bilaterally. Absent: respiratory distress, wheezes, rales, rhonchi, stridor Cardiovascular Exam: Present: regular rate, normal rhythm, normal heart sounds. Absent: systolic murmur, diastolic murmur, rubs, gallop, clicks GI/Abdominal exam: Present: soft, normal bowel sounds. Absent: distended, tenderness, guarding, rebound, rigid Left Hand Wrist exam: Present: full ROM, laceration (patient has a 4cm wound with dihiscence with 6 sutures that are partially avulsed. No erythema or drainage. ). Absent: normal inspection Back exam: Present: normal inspection Neurological exam: Present: alert, oriented X3, CN II-XII intact Psychiatric exam: Present: normal affect, normal mood Skin exam: Present: warm, dry, intact, normal color. Absent: rash Course Vital Signs 08/20/19 12:34 Temperature 97.8 F Pulse Rate 72 Respiratory 18 Rate Blood Pressure 122/75 O2 Sat by Pulse 96 Oximetry Medical Decision Making - Medical Decision Making 59 year old male with suture opening and wound dihisence on L hand. Patient had 6 sutures removed and discussed wound to heal by seocndary intention at this time. Steristrips were placed and advised monitoring for infection. No sgins of infection at this time including drainage, redness, or swelling. Disposition Clinical Impression: Wound dehiscence Disposition: HOME SELF-CARE Condition: Good Instructions (If sedation given, give patient instructions): Wound Dehiscence (ED) Additional Instructions: Monitor the skin for any redness or swelling or drainage. Allow Steri-Strips to follow-up on the road. Child to avoid getting the hand wet or excessive use of the hand. Keep the area covered if you're doing any activity with her hand otherwise try to keep the skin dry. Please follow up with family doctor if symptoms have not improved over the next two days. Please return to the emergency room if your symptoms increase or worsen or for any other concerns. Is patient prescribed a controlled substance at d/c from ED?: No Referrals: Yaya Rojas DO [Primary Care Provider] - 1-2 days Time of Disposition: 13:20
== END 2019-08-20 13:24 | disposition home or self-care (01) ==
LOC: EC 12:31
DX: T81.31XA Disruption of external operation (surgical) wound, not elsewhere classified, initial encounter (principal); E78.5 Hyperlipidemia, unspecified; F32.9 Major depressive disorder, single episode, unspecified; F17.200 Nicotine dependence, unspecified, uncomplicated; Z79.899 Other long term (current) drug therapy
CPT/HCPCS: 99283

== ENCOUNTER 2019-12-10 14:11 | Inpatient (IN) | payer BC ==
[2019-12-10] MEDS ORDERED: ASPIRIN 81 MG PO STA (14:28)
[2019-12-10 14:49] LABS: Basophils # (A) 0.1 k/uL (0-0.2); Basophils % (A) 1 %; Eosinophils # (A) 0.3 k/uL (0-0.7); Eosinophils % (A) 3 %; HCT 44.9 % (39.0-53.0); HGB 14.9 gm/dL (13.0-17.5); Lymphocytes # (A) 3.4 k/uL (1.0-4.8); Lymphocytes % (A) 38 %; MCH 31.5 pg (25.0-35.0); MCHC 33.2 g/dL (31.0-37.0); MCV 94.7 fL (80.0-100.0); Mean Platelet Volume 7.5; Monocytes # (A) 0.5 k/uL (0-1.0); Monocytes % (A) 6 %; Neutrophils # (A) 4.6 k/uL (1.3-7.7); Neutrophils % (A) 50 %; Platelet Count 272 k/uL (150-450); RBC 4.75 m/uL (4.30-5.90); RDW 13.3 % (11.5-15.5); WBC 9.1 k/uL (3.8-10.6)
--- NOTE | 2019-12-10 14:54 | ED ---
Chest Pain HPI - General Chief Complaint: Chest Pain Stated Complaint: Cough, Chest pain Time Seen by Provider: 12/10/19 14:16 Source: patient Mode of arrival: ambulatory Limitations: no limitations - History of Present Illness Initial Comments: Patient is a 59-year-old male, with history of vascular disorder, presenting to the emergency Department with complaints of chest congestion, cough, chest pain for the last 2 weeks. Patient has history of severe aortic blockage below the renal artery level that he is being monitored by vascular doctor at [facility]. Patient states he has been diagnosed with the flu on 2 separate occasions over the past month. Patient states he continues to have a cough for most of the day and then when he lays down at night starts to have chest pains. Patient states his cough gets better throughout the evening. Describes the chest pain as left sided, intermittent. He denies shortness of breath, abd ominal pain, nausea, vomiting, diarrhea. He states he did have fevers at the beginning of the month but states he has not had any in the past 1-2 weeks. He denies any recent travel, recent antibiotic use. He denies being on blood thinners. He does take a baby aspirin. He has no other complaints at this time. Upon arrival to ER, patient's vital signs are stable. - Related Data Home Medications Medication Instructions Recorded Confirmed Atorvastatin [Lipitor] 80 mg PO HS 05/18/15 12/10/19 Escitalopram [Lexapro] 10 mg PO HS 12/07/18 12/10/19 Aspirin EC [Ecotrin Low Dose] 81 mg PO HS 12/10/19 12/10/19 Allergies Allergy/AdvReac Type Severity Reaction Status Date / Time No Known Allergies Allergy Verified 12/10/19 16:16 Review of Systems ROS Statement: Those systems with pertinent positive or pertinent negative responses have been documented in the HPI. ROS Other: All systems not noted in ROS Statement are negative. EKG Findings - EKG Comments: EKG Findings:: Ventricular rate 74, SD interval 138, QTC 4:30. Normal sinus rhythm. T-wave inversions in II, III, and slightly in aVF. These are changes from previous EKG dated 01/06/2018. Past Medical History Past Medical History: Hyperlipidemia, Vascular Disorder Additional Past Medical History / Comment(s): Severe aortic blockage below renal artery-has been seen at [facility], [facility] and [facility], chronic bilateral leg pain, bilateral hands/feet numbness and tingling, optic migraines, sepsis in 2015, 2 lesions in throat History of Any Multi-Drug Resistant Organisms: None Reported Past Surgical History: Cholecystectomy Additional Past Surgical History / Comment(s): Microlaryngoscopy 11-28-18,Colonoscopy, anal fissure repair, colonoscopy with benign polypectomy Past Anesthesia/Blood Transfusion Reactions: No Reported Reaction Additional Past Anesthesia/Blood Transfusion Reaction / Comment(s): states has experienced balance issues after anesthesia Past Psychological History: Depression Smoking Status: Current every day smoker Past Alcohol Use History: None Reported Past Drug Use History: None Reported - Past Family History Mother Family Medical History: No Reported History Father Family Medical History: Hyperlipidemia, Hypertension, Myocardial Infarction ([place]) Additional Family Medical History / Comment(s): Father of a [place] in his 70s General Exam - General Exam Comments Initial Comments: GENERAL: Well-appearing, well-nourished and in no acute distress. HEAD: Atraumatic, normocephalic. EYES: Pupils equal round and reactive to light, extraocular movements intact, sclera anicteric, conjunctiva are normal. ENT: TMs normal, nares patent, oropharynx clear without exudates. Moist mucous membranes. NECK: Normal range of motion, supple without lymphadenopathy or JVD. LUNGS: Breath sounds clear to auscultation bilaterally and equal. No wheezes rales or rhonchi. HEART: Regular rate and rhythm without murmurs, rubs or gallops. ABDOMEN: Soft, nontender, normoactive bowel sounds. No guarding, no rebound. No masses appreciated. : Deferred EXTREMITIES: Normal range of motion, no pitting or edema. No clubbing or cyanosis. NEUROLOGICAL: Normal speech, normal gait. PSYCH: Normal mood, normal affect. SKIN: Warm, Dry, normal turgor, no rashes or lesions noted. Limitations: no limitations Course Vital Signs 12/10/19 12/10/19 12/10/19 14:12 14:37 14:58 Temperature 97.8 F Pulse Rate 61 73 Respiratory 18 18 18 Rate Blood Pressure 163/78 135/77 O2 Sat by Pulse 98 98 Oximetry Chest Pain [facility] Patient is a 59-year-old male presenting with cough, chest congestion, chest pain intermittent for 2 weeks. Chest pain is worse at night when he lays down. He has a history of vascular disease who he sees a physician at [facility]. Vital signs are stable. Patient's chest x-ray shows no acute abnormalities. EKG had T-wave inversions in II, III, and aVF. This is a change from the last EKG in 2018. Patient's lab work shows no acute abnormalities, troponin is normal. Patient was given an aspirin. He reports symptom-free at this time. Given patient's history and complaint, recommended admission for chest pain evaluation. Patient is agreeable with this plan of care. Patient will be admitted to Dr. Noonan with cardiac consult. Case is discussed with Dr. Greco. Disposition Clinical Impression: Chest pain, Upper respiratory infection Disposition: ADMITTED IP TO THIS HOSP Condition: Stable Is patient prescribed a controlled substance at d/c from ED?: No Decision Date: 12/10/19 Decision Time: 15:56
--- NOTE | 2019-12-10 14:57 | XR ---
EXAMINATION TYPE: XR chest 2V DATE OF EXAM: 12/10/2019 COMPARISON: 01/06/2018 HISTORY: Chest pain and cough TECHNIQUE: Frontal and lateral views of the chest are obtained. FINDINGS: There is no focal air space opacity, pleural effusion, or pneumothorax seen. The cardiac silhouette size is within normal limits. The osseous structures are intact. Mild multilevel degener ative change of the spine. Cholecystectomy clips are seen. IMPRESSION: No acute cardiopulmonary process.
[2019-12-10 14:58] LABS: ALT 36 U/L (4-49); AST 32 U/L (17-59); African American GFR (CKD) >90 (>60 ml/min/1.73 sqM); Albumin 3.6 g/dL (3.5-5.0); Alkaline Phosphatase 128 U/L (38-126); Anion Gap 6 mmol/L; Blood Urea Nitrogen 11 mg/dL (9-20); Calcium 8.6 mg/dL (8.4-10.2); Carbon Dioxide 25 mmol/L (22-30); Chloride 106 mmol/L (98-107); Glucose 133 mg/dL (74-99); Magnesium 2.1 mg/dL (1.6-2.3); Non-African American GFR(CKD) >90 (>60 ml/min/1.73 sqM); Potassium 4.1 mmol/L (3.5-5.1); Sodium 137 mmol/L (137-145); Total Bilirubin 0.3 mg/dL (0.2-1.3); Total Protein 6.4 g/dL (6.3-8.2)
[2019-12-10 15:00] LABS: INR 0.9 (<1.2); Partial Thromboplastin Time 25.4 sec (22.0-30.0); Prothrombin Time 9.5 sec (9.0-12.0)
[2019-12-10] MEDS ORDERED: IPRATROPIUM-ALBUTEROL 3 ML NEB INHALATION PRN (18:56)
[2019-12-10] MEDS ORDERED: ALPRAZolam 0.25 MG TAB PO PRN (19:30)
[2019-12-10] MEDS ORDERED: HYDROcodone/APAP 5-325MG 1 EACH TAB PO PRN (19:30)
[2019-12-10] MEDS ORDERED: TEMAZEPAM 15 MG CAP PO PRN (19:30)
[2019-12-10] MEDS ORDERED: ACETAMINOPHEN TAB 500 MG TAB PO PRN (19:30)
[2019-12-10] MEDS: ATORVASTATIN 40 MG TAB PO SCH (19:45)
[2019-12-10] MEDS: NICOTINE 14MG/24HR PATCH TRANSDERM SCH (19:45)
[2019-12-10] MEDS: LEVOFLOXACIN 500MG-D5W PMX 500 MG in DEXTROSE/WATER 1 100ML.BAG IVPB SCH (19:45)
[2019-12-10] MEDS: ASPIRIN 81 MG PO SCH (19:45)
--- NOTE | 2019-12-10 20:34 | HP ---
HISTORY AND PHYSICAL CHIEF COMPLAINT: Chest pain. HISTORY OF PRESENT ILLNESS: This 59-year-old gentleman with a past medical history of multiple medical problems including chest pain, GERD, hearing difficulties, history of hyperlipidemia, history of severe aortic blockage below the renal artery, being followed by [facility] and [facility] for chronic bilateral leg pain, history of cholecystectomy, history of microlaryngoscopy and history depression, being followed by Dr. Rojas in the outpatient setting, was admitted with complaints of chest pain. The patient apparently having cough for the last several weeks. The patient was never tested for flu. Now, the patient is complaining of chest pain, mostly bilateral, left more than the right. The patient came to [facility]. The chest pain is rather uncharacteristic and without much radiation, not associated with cough, according to him and the patient does not have any recent travel and the patient admitted for further evaluation and treatment. Initial troponins are negative. The EKG at the time of admission showed diffuse nonspecific ST-T changes and a chest x- ray which was reviewed personally by me showed some increased bronchovascular markings. No evidence of pneumonia. There is no history of fever or rigors. No headache, loss of consciousness or seizures. PAST MEDICAL HISTORY: History of GERD, history of hyperlipidemia, history of prostate disorder, history of vascular disorder with aortic occlusion, history of depression. MEDICATIONS: Prior to admission: 1. Lexapro 10 mg q.h.s. 2. Lipitor 80 mg q.h.s. 3. Ecotrin 81 mg q.h.s. ALLERGIES: None. FAMILY HISTORY: History of hypertension, hyperlipidemia, history of myocardial infarction. SOCIAL HISTORY: History of continued ongoing nicotine dependence. No history of alcohol intake. REVIEW OF SYSTEMS: ENT: No diminished vision. No diminished hearing. CARDIOVASCULAR: As mentioned earlier. RESPIRATORY: As mentioned earlier. GI no nausea or vomiting. no dysuria. Nervous system: No numbness or weakness. ALLERGY/IMMUNOLOGY: No asthma or hayfever. MUSCULOSKELETAL as mentioned earlier. HEMATOLOGY/ONCOLOGY: No history of anemia. ENDOCRINE: No history of diabetes or hypothyroidism. CONSTITUTIONAL: As mentioned earlier. DERMATOLOGY: Negative. RHEUMATOLOGY: Negative. PSYCHIATRY: As mentioned earlier. PHYSICAL EXAMINATION: The patient is alert and oriented times three. Pulse 60, blood pressure 120/77, respirations 18, temperature 98.2, pulse ox 98% on room air. HEENT: Conjunctivae normal. NECK: No JVD. CARDIOVASCULAR: S1, S2 muffled. RESPIRATIONS: Breath sounds diminished in the bases. A few rhonchi. No crackles. ABDOMEN: Soft. Nontender. No mass palpable. LEGS: No edema. No swelling. CENTRAL NERVOUS SYSTEM: Higher functions as mentioned earlier. Moves all four extremities. No focal motor or sensory deficits. Lymphatics: No lymph nodes palpable in the neck, axillae or groin. SKIN: No ulcer, no rash and no bleeding. JOINTS: No active deforming arthropathy. LABS: CBC within normal limits and INR 0.9. Sodium 137, glucose 133, alkaline phosphatase 128. ASSESSMENT: 1. Chest pain, possible unstable angina. 2. Increased random blood sugar. 3. Possible acute bronchitis, rule out influenza. 4. History of gastroesophageal reflux disease. 5. Hyperlipidemia. 6. History of prostate disorder. 7. Aortic occlusion below the renal artery. Followed by [facility]. 8. History of sepsis. 9. History of migraines. 10.History of degenerative joint disease. 11.History of cholecystectomy. 12.History of depression. 13.History of continued ongoing nicotine dependence. RECOMMENDATIONS AND DISCUSSION: This 59-year-old gentleman who presented with multiple complex medical issues, we will monitor the patient closely, continue the current medications, management and symptomatic treatment. I recommend empiric antibiotics and as well as flu testing, bronchodilators. Otherwise, I would also recommend resume the home medications. Cardiology consultation. Possible stress test. Guarded prognosis because of multiple complex medical issues. Further recommendations to follow. A copy of the dictation being forwarded to Dr. Rojas who is the primary physician. MMODL / IJN: [id number] /
[2019-12-10] MEDS: ESCITALOPRAM 10 MG TAB PO SCH (20:42)
[2019-12-10] MEDS: IPRATROPIUM-ALBUTEROL 3 ML NEB INHALATION SCH (20:54)
[2019-12-11 06:25] LABS: Basophils # (A) 0.1 k/uL (0-0.2); Basophils % (A) 1 %; Eosinophils # (A) 0.2 k/uL (0-0.7); Eosinophils % (A) 3 %; HCT 42.2 % (39.0-53.0); HGB 13.9 gm/dL (13.0-17.5); Lymphocytes # (A) 3.4 k/uL (1.0-4.8); Lymphocytes % (A) 39 %; MCH 31.4 pg (25.0-35.0); MCHC 32.9 g/dL (31.0-37.0); MCV 95.4 fL (80.0-100.0); Mean Platelet Volume 7.5; Monocytes # (A) 0.5 k/uL (0-1.0); Monocytes % (A) 6 %; Neutrophils # (A) 4.2 k/uL (1.3-7.7); Neutrophils % (A) 49 %; Platelet Count 245 k/uL (150-450); RBC 4.42 m/uL (4.30-5.90); RDW 13.4 % (11.5-15.5); WBC 8.6 k/uL (3.8-10.6)
[2019-12-11 06:47] LABS: African American GFR (CKD) >90 (>60 ml/min/1.73 sqM); Anion Gap 4 mmol/L; Blood Urea Nitrogen 13 mg/dL (9-20); Calcium 8.4 mg/dL (8.4-10.2); Carbon Dioxide 26 mmol/L (22-30); Chloride 107 mmol/L (98-107); Cholesterol 147 mg/dL (<200); Glucose 85 mg/dL (74-99); HDL Cholesterol 28 mg/dL (40-60); LDL Cholesterol,Calculated 89 mg/dL (0-99); Non-African American GFR(CKD) >90 (>60 ml/min/1.73 sqM); Potassium 4.6 mmol/L (3.5-5.1); Sodium 137 mmol/L (137-145); Triglycerides 148 mg/dL (<150)
[2019-12-11] MEDS: IPRATROPIUM-ALBUTEROL 3 ML NEB INHALATION SCH ×3 (08:00→20:50)
[2019-12-11] MEDS ORDERED: AMINOPHYLLINE 500 MG/20 ML VIAL IV PRN (08:27)
[2019-12-11] MEDS ORDERED: CAFFEINE CITRATE 60 MG/3 ML VIAL IV PRN (08:27)
[2019-12-11] MEDS ORDERED: DIPYRIDAMOLE IV ONE (08:30)
[2019-12-11] MEDS ORDERED: SODIUM CHLORIDE 0.9% IV ONE (08:30)
[2019-12-11] MEDS ORDERED: ASPIRIN 325 MG TAB PO SCH (09:00)
--- NOTE | 2019-12-11 10:04 | P.CRDCN ---
History of Present Illness History of present illness: HISTORY OF PRESENTING ILLNESS This is a pleasant 59-year-old male past medical history significant for peripheral vascular disease, dyslipidemia and chronic nicotine dependence. He follows in the office with Dr. Gipson. We have been asked to see in consultation for chest pain. He states for the previous 4-6 weeks he has been struggling with upper respiratory type illness. Starting 3 days ago he started having a discomfort in his chest with radiation around his trunk. The symptoms were intermittent in nature and occurred at night when he lay down to sleep. There was no radiation through to the back, down the arm, into the neck or the jaw. He denies associated shortness of breath, dizziness, nausea, vomiting, palpitations or diaphoresis. 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 DIAGNOSTICS EKG reveals sinus mechanism heart rate 74, T-wave inversions in the inferior lateral leads. Chest xray negative for an acute cardiopulmonary process. Laboratory reviewed, CBC unremarkable, sodium 137, potassium 4.6, creatinine 0.78, cardiac enzymes negative x3, LDL 89. Current cardiac medications include aspirin 81 mg daily, atorvastatin 80 mg daily. REVIEW OF SYSTEMS At the time of my exam: CONSTITUTIONAL: Denies fever or chills. CARDIOVASCULAR: Denies chest pain, shortness of breath, orthopnea, PND or palpitations. RESPIRATORY: Denies cough. GASTROINTESTINAL: Denies abdominal pain, diarrhea, constipation, nausea or vomiting. MUSCULOSKELETAL: Denies myalgias. NEUROLOGIC: Denies numbness, tingling or weakness. ENDOCRINE: Denies fatigue, weight change, polydipsia or polyurina. GENITOURINARY: Denies burning, hematuria or urgency with micturation. HEMATOLOGIC: Denies history of anemia or bleeding. PHYSICAL EXAMINATION Blood pressure 103/67 heart rate 62 afebrile and maintaining oxygen saturation on room air. CONSTITUTIONAL: No apparent distress. HEENT: Head is normocephalic. Pupils are equal, round. Sclerae anicteric. Mucous membranes of the mouth are moist. No JVD. No carotid bruit. CHEST EXAMINATION: Lungs are clear to auscultation. No chest wall tenderness is noted on palpation or with deep breathing. HEART EXAMINATION: Regular rate and rhythm. S1, S2 heard. No murmurs, gallops or rub. ABDOMEN: Soft, nontender. Positive bowel sounds. EXTREMITIES: 1+ peripheral pulses, no lower extremity edema and no calf tenderness. NEUROLOGIC EXAMINATION: Patient is awake, alert and oriented x3. ASSESSMENT Chest pain, atypical. An acute event has been ruled out. 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 Given his significant peripheral vascular disease we will proceed with stress test to assess for reversible cardiac ischemia. Smoking cessation recommended. Continue atorvastatin as previously ordered. If stress test is abnormal we will consider proceeding with coronary angiography. Thank you kindly for this consultation. Nurse Practitioner note has been reviewed, I agree with a documented findings and plan of care. Patient was seen and examined. Past Medical History Past Medical History: Chest Pain / Angina, GERD/Reflux, Hearing Disorder / Deafness, Hyperlipidemia, Prostate Disorder, Vascular Disorder Additional Past Medical History / Comment(s): Severe aortic blockage below renal artery-has been seen at [facility] and [facility], chronic bilateral leg pain, bilateral hands/feet numbness and tingling, optic migraines, sepsis in 2014, 2 lesions in throat, arthritis in lower back and ankles, enlarged p rostate, sepsis History of Any Multi-Drug Resistant Organisms: None Reported Past Surgical History: Cholecystectomy Additional Past Surgical History / Comment(s): Microlaryngoscopy 11-28-18,Colonoscopy, anal fissure repair, colonoscopy with benign polypectomy Past Anesthesia/Blood Transfusion Reactions: No Reported Reaction Additional Past Anesthesia/Blood Transfusion Reaction / Comment(s): states has experienced balance issues after anesthesia Past Psychological History: Depression Smoking Status: Current every day smoker Past Alcohol Use History: None Reported Additional Past Alcohol Use History / Comment(s): Pt started smoking in 1973 and is a 1ppd smoker Past Drug Use History: None Reported - Past Family History Mother Family Medical History: No Reported History Sister(s) Family Medical History: Cancer Additional Family Medical History / Comment(s): breast Father Family Medical History: Hyperlipidemia, Hypertension, Myocardial Infarction ([place]) Additional Family Medical History / Comment(s): cad Medications and Allergies Home Medications Medication Instructions Recorded Confirmed Type Atorvastatin [Lipitor] 80 mg PO HS 05/18/15 12/10/19 History Escitalopram [Lexapro] 10 mg PO HS 12/07/18 12/10/19 History Aspirin EC [Ecotrin Low Dose] 81 mg PO HS 12/10/19 12/10/19 History Allergies Allergy/AdvReac Type Severity Reaction Status Date / Time No Known Allergies Allergy Verified 12/10/19 16:16 Physical Exam Vitals: Vital Signs Temp Pulse Pulse Resp BP BP Pulse Ox 12/11/19 08:00 62 18 12/11/19 07:05 98.3 F 62 18 103/67 97 12/11/19 03:48 98.0 F 58 L 16 118/78 98 12/11/19 03:42 73 17 12/11/19 00:00 73 17 12/10/19 23:25 98.0 F 73 17 135/77 98 12/10/19 20:00 67 17 12/10/19 19:42 98.0 F 67 17 128/67 97 12/10/19 16:44 98.2 F 60 18 126/77 98 12/10/19 16:29 97.8 F 73 18 135/77 98 12/10/19 14:58 73 18 135/77 98 12/10/19 14:37 18 12/10/19 14:12 97.8 F 61 18 163/78 98 Intake and Output 12/10/19 12/11/19 12/11/19 22:59 06:59 14:59 Intake Total 480 100 Balance 480 100 Intake: Intake, IV Titration 100 Amount Levofloxacin 500Mg-D5w 100 Pmx 500 mg In Dextrose/ Water 1 100ml.bag @ 100 mls/hr IVPB Q24H [facility] Rx#: [id number] Oral 480 Other: Voiding Method Toilet Toilet Toilet # Voids 1 Weight 74.843 kg 76 kg Results 12/11/19 05:29 12/11/19 05:29 Cardiac Enzymes 12/10/19 12/10/19 12/10/19 Range/Units 14:35 14:35 20:41 AST 32 (17-59) U/L Troponin I <0.012 <0.012 (0.000-0.034) ng/mL 12/11/19 Range/Units 01:40 AST (17-59) U/L Troponin I <0.012 (0.000-0.034) ng/mL Coagulation 12/10/19 Range/Units 14:35 PT 9.5 (9.0-12.0) sec APTT 25.4 (22.0-30.0) sec Lipids 12/11/19 Range/Units 05:29 Triglycerides 148 (<150) mg/dL Cholesterol 147 (<200) mg/dL HDL Cholesterol 28 L (40-60) mg/dL CBC 12/10/19 12/11/19 Range/Units 14:35 05:29 WBC 9.1 8.6 (3.8-10.6) k/uL RBC 4.75 4.42 (4.30-5.90) m/uL Hgb 14.9 13.9 (13.0-17.5) gm/dL Hct 44.9 42.2 (39.0-53.0) % Plt Count 272 245 (150-450) k/uL Comprehensive Metabolic Panel 12/10/19 12/11/19 Range/Units 14:35 05:29 Sodium 137 137 (137-145) mmol/L Potassium 4.1 4.6 (3.5-5.1) mmol/L Chloride 106 107 (98-107) mmol/L Carbon Dioxide 25 26 (22-30) mmol/L BUN 11 13 (9-20) mg/dL Creatinine 0.72 0.78 (0.66-1.25) mg/dL Glucose 133 H 85 (74-99) mg/dL Calcium 8.6 8.4 (8.4-10.2) mg/dL AST 32 (17-59) U/L ALT 36 (4-49) U/L Alkaline Phosphatase 128 H (38-126) U/L Total Protein 6.4 (6.3-8.2) g/dL Albumin 3.6 (3.5-5.0) g/dL Current Medications Generic Name Dose Route Start Last Admin Trade Name Freq PRN Reason Stop Dose Admin Acetaminophen 500 mg 12/10/19 19:30 Tylenol Tab PO Q6HR PRN Fever and/ or Pain Hydrocodone Bitart/Acetaminophen 1 each 12/10/19 19:30 [place] 5-325 PO Q6HR PRN Pain Albuterol/Ipratropium 3 ml 12/10/19 18:56 Duoneb 0.5 Mg-3 Mg/3 Ml Soln INHALATION RT-TID PRN Shortness Of Breath Or Wheezing Alprazolam 0.25 mg 12/10/19 19:30 Xanax PO TID PRN Anxiety Aminophylline 100 mg 12/11/19 08:27 Aminophylline IV 12/11/19 23:00 ONCE PRN Patient Response Aspirin 81 mg 12/10/19 21:00 12/10/19 19:45 Aspirin PO 81 mg HS MICHAEL Administration Atorvastatin Calcium 80 mg 12/10/19 21:00 12/10/19 19:45 Lipitor PO 80 mg HS MICHAEL Administration Caffeine Citrate 60 mg 12/11/19 08:27 Cafcit Inj IV 12/11/19 23:00 ONCE PRN Patient Response Escitalopram Oxalate 10 mg 12/10/19 21:00 12/10/19 20:42 Lexapro PO 10 mg HS MICHAEL Administration Levofloxacin 500 mg/ IV 100 mls @ 100 mls/hr 12/10/19 19:30 12/10/19 19:45 Solution IVPB 100 mls/hr Q24H MICHAEL Administration Nicotine 1 patch 12/10/19 19:30 12/10/19 19:45 Habitrol 14mg/24hr Patch TRANSDERM 1 patch DAILY MICHAEL Administration Pantoprazole Sodium 40 mg 12/11/19 07:30 Protonix PO AC-BRKFST [facility] Temazepam 15 mg 12/10/19 19:30 Restoril PO HS PRN Insomnia Intake and Output 12/10/19 12/11/19 12/11/19 22:59 06:59 14:59 Intake Total 480 100 Balance 480 100 Intake: Intake, IV Titration 100 Amount Levofloxacin 500Mg-D5w 100 Pmx 500 mg In Dextrose/ Water 1 100ml.bag @ 100 mls/hr IVPB Q24H [facility] Rx#: [id number] Oral 480 Other: Voiding Method Toilet Toilet Toilet # Voids 1 Weight 74.843 kg 76 kg 12/11/19 05:29 12/11/19 05:29
[2019-12-11] MEDS: NICOTINE 14MG/24HR PATCH TRANSDERM SCH (11:31)
[2019-12-11] MEDS: PANTOPRAZOLE 40 MG TABLET PO SCH (11:31)
--- NOTE | 2019-12-11 11:36 | NM ---
EXAMINATION TYPE: NM stress persantine cardiolit DATE OF EXAM: 12/11/2019 COMPARISON: NONE HISTORY: Chest pain TECHNIQUE: After the intravenous administration of 10.98 mCi Tc 99m Sestamibi - Cardiolite resting S PECT images acquired 50 minutes post injection. The patient received 43 mg Persantine, 26.5 mCi Tc 99m Sestamibi - Stress images obtained 30 minutes post injection FINDINGS: Review of stress and rest SPECT images demonstrates no a large reversible perfusion defect of the ant erolateral wall involving the apical, mid and basilar segments. This appears on stress imaging only a nd does not appear on rest imaging. Gated analysis shows septal hypokinesis of the lateral wall with an estimated left ventricular ejection fraction of 53 %. TID is within normal limits measured at 1.16 . IMPRESSION: Large reversible defect/ischemia in the distribution of the left anterior descending coronary artery bridging the distribution of the circumflex coronary artery. A Red level critical message alert has been initiated for Berry Dangelo MD via the [employer] Critical Results System on 12/11/2019 11:33 AM. This message alert has been sent to Berry Dangelo MD via the preferences provided by the clinician for the receipt of Radiology Critical Findings. Messag e ID [id number].
[2019-12-11] MEDS ORDERED: NITROGLYCERIN SL TABS 0.4 MG TAB SUBLINGUAL PRN (12:18)
[2019-12-11] MEDS ORDERED: SODIUM CHLORIDE 0.9% 1,000 ML in EMPTY BAG 1 BAG IV ONE (12:18)
--- NOTE | 2019-12-11 12:21 | P.PN ---
Progress Note - Text Stress test results discussed with the patient in great detail. We recommend proceeding with cardiac catheterization for definitive diagnosis. I have discussed the risks, benefits and alternative therapies for the above-mentioned procedure and for both sedation/analgesia as well as necessary blood product administration, if indicated, as they pertain to this patient. The patient has indicated understanding and acceptance of the risks and procedures discussed. Questions have been answered appropriately and he is agreeable to move forward with the above stated procedure. This has been reported tomorrow morning with Dr. Gipson.
--- NOTE | 2019-12-11 14:35 | ECHOF ---
Referral Reason:chest pain MEASUREMENTS -------- HEIGHT: 175.3 cm WEIGHT: 74.8 kg BP: RVIDd: 3.4 cm (< 3.3) IVSd: 1.2 cm (0.6 - 1.1) LVIDd: 3.4 cm (3.9 - 5.3) LVPWd: 1.5 cm (0.6 - 1.1) IVSs: 1.6 cm LVIDs: 2.3 cm LVPWs: 1.8 cm LAESV Index (A-L): 18.10 ml/m Ao Diam: 3.0 cm (2.0 - 3.7) AV Cusp: 1.7 cm (1.5 - 2.6) LA Diam: 3.0 cm (2.7 - 3.8) MV EXCURSION: 20.824 mm (> 18.000) MV EF SLOPE: 97 mm/s (70 - 150) EPSS: 0.8 cm MV E Saad: 0.71 m/s MV DecT: 240 ms MV A Saad: 0.83 m/s MV E/A Ratio: 0.86 RAP: 5.00 mmHg RVSP: 22.84 mmHg TAPSE: 32.28 mm FINDINGS -------- Sinus rhythm. This was a technically good study. The left ventricular size is normal. There is mild concentric left ventricular hypertrophy. Overa ll left ventricular systolic function is normal with, an EF between 55 - 60 %. The diastolic fillin g pattern is normal for the age of the patient 11.33. The right ventricle is mildly enlarged. The right ventricular systolic function is normal. The left atrial size is normal. Normal LA size by volume 22+/-6 ml/m2. The right atrial size is normal. The aortic valve is trileaflet and appears structurally normal. The mitral valve is normal. There is trace mitral regurgitation. The tricuspid valve appears structurally normal. Trace tricuspid regurgitation present. Right eusebio tricular systolic pressure is normal at < 35 mmHg. There is no pulmonic regurgitation present. The aortic root size is normal. Normal inferior vena cava with normal inspiratory collapse consistent with estimated right atrial pre ssure of 5 mmHg. There is no pericardial effusion. CONCLUSIONS -------- 1. Sinus rhythm. 2. This was a technically good study. 3. The left ventricular size is normal. 4. There is mild concentric left ventricular hypertrophy. 5. Overall left ventricular systolic function is normal with, an EF between 55 - 60 %. 6. The diastolic filling pattern is normal for the age of the patient 11.33 7. The right ventricle is mildly enlarged. 8. The right ventricular systolic function is normal. 9. The left atrial size is normal. 10. Normal LA size by volume 22+/-6 ml/m2. 11. The right atrial size is normal. 12. The aortic valve is trileaflet and appears structurally normal. 13. The mitral valve is normal. 14. There is trace mitral regurgitation. 15. The tricuspid valve appears structurally normal. 16. Trace tricuspid regurgitation present. 17. Right ventricular systolic pressure is normal at < 35 mmHg. 18. There is no pulmonic regurgitation present. 19. The aortic root size is normal. 20. Normal inferior vena cava with normal inspiratory collapse consistent with estimated right atrial pressure of 5 mmHg. 21. There is no pericardial effusion. THERAPIST'S ASSISTANT: Radha Perez RDCS
--- NOTE | 2019-12-11 18:38 | EST ---
EXERCISE STRESS AGE: 59 SEX: Male. HT: 69" WT: 167 pounds PROTOCOL: Persantine Cardiolite STAGE: DURATION OF EXERCISE: HEART RATE REST: 59 BLOOD PRESSURE REST: 130/77 MAXIMUM HEART RATE ACHIEVED: 91 MAXIMUM BLOOD PRESSURE: 150/75 85% MPHR: 137 100% MPHR: 161 METS: INDICATIONS: Chest pain. CLINICAL INFORMATION: STRESS DATA: Heart rate 59, pressure 130/77 mmHg. Baseline EKG showed sinus rhythm. 43 mg of Persantine was given over 15 seconds per protocol with max heart rate of 89 beats per minute and maximum pressure was 148/82 mmHg. Clinically the patient did not have any symptoms of chest pain or discomfort and the EKG did not show any significant ST or T-wave abnormalities concerning for ischemia. CONCLUSION: 1. Nondiagnostic electrocardiogram stress testing in response to Persantine. 2. Please follow up on the Cardiolite portion on separate report from Radiology Department. MMODL / IJN: [id number] /
--- NOTE | 2019-12-11 19:15 | P.PN ---
Progress Note - Text Progress Note Date: 12/11/19 Presenting complaint: Chest pain Interval history: This is a 59-year-old patient of Dr. Rojas. Presented with 2 weeks of chest congestion cough chest pain. 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 Has had 2 episodes of flu last month. Today-no chest pain. Slight cough. Patient nuclear stress test came back positive this morning. Review of systems: Was done for constitutional, cardiovascular, GI, pulmonary. relevant finding as above Active Medications Acetaminophen (Tylenol Tab) 500 mg PO Q6HR PRN PRN Reason: Fever and/ or Pain Hydrocodone Bitart/Acetaminophen ([place] 5-325) 1 each PO Q6HR PRN PRN Reason: Pain Albuterol/Ipratropium (Duoneb 0.5 Mg-3 Mg/3 Ml Soln) 3 ml INHALATION RT-TID PRN PRN Reason: Shortness Of Breath Or Wheezing Alprazolam (Xanax) 0.25 mg PO TID PRN PRN Reason: Anxiety Aminophylline (Aminophylline) 100 mg IV ONCE PRN PRN Reason: Patient Response Stop: 12/11/19 23:00 Aspirin (Aspirin) 81 mg PO [facility] Last Admin: 12/10/19 19:45 Dose: 81 mg Documented by: Aspirin (Aspirin) 325 mg PO ONCE ONE Stop: 12/12/19 06:01 Atorvastatin Calcium (Lipitor) 80 mg PO [facility] Last Admin: 12/10/19 19:45 Dose: 80 mg Documented by: Caffeine Citrate (Cafcit Inj) 60 mg IV ONCE PRN PRN Reason: Patient Response Stop: 12/11/19 23:00 Escitalopram Oxalate (Lexapro) 10 mg PO [facility] Last Admin: 12/10/19 20:42 Dose: 10 mg Documented by: Levofloxacin 500 mg/ IV (Solution) 100 mls @ 100 mls/hr IVPB Q24H [facility] Last Admin: 12/10/19 19:45 Dose: 100 mls/hr Documented by: Sodium Chloride 1,000 ml/ IV (Solution) 1,000 mls @ 76 mls/hr IV .[id number] ONE Stop: 12/12/19 01:27 Nicotine (Habitrol 14mg/24hr Patch) 1 patch TRANSDERM DAILY [facility] Last Admin: 12/11/19 11:31 Dose: 1 patch Documented by: Nitroglycerin (Nitrostat) 0.4 mg SUBLINGUAL Q5M PRN PRN Reason: Chest Pain Pantoprazole Sodium (Protonix) 40 mg PO AC-BRKFST [facility] Last Admin: 12/11/19 11:31 Dose: Not Given Documented by: Temazepam (Restoril) 15 mg PO HS PRN PRN Reason: Insomnia On examination: VITAL SIGNS: 98, 59, 18, blood pressure 147 /77, 95% on room air GENERAL APPEARANCE: Average build. Sitting up in bed, not in distress HEENT: Normal external appearance of nose and ear. Oral cavity normal EYES: Pupils equal. Conjunctiva normal. NECK: JVD not raised. Mass not palpable. RESPIRATORY: Respiratory effort normal. Decreased breath sounds. CARDIOVASCULAR: First and second sounds normal. No edema. ABDOMEN: Soft. Liver and spleen not palpable. No tenderness. No mass palpable. PSYCHIATRY: Alert and oriented x3. Mood and affect normal. INVESTIGATIONS, reviewed in the clinical context: White count 8.6 hemoglobin 13.9 potassium 4.6 creatinine 0.78 Persantine stress test-positive Previous testing: Troponin I 3 negative, LDL 89 Influenza type A and B both negative 2-D echocardiogram-EF 55/60% EKG tracing personally reviewed by me-nonspecific T-wave changes Assessment: -Unstable angina with negative troponins, now with a positive nuclear stress test -GERD -Hard of hearing -Hyperlipidemia -Severe aortic blockage below the renal artery being followed at outside facility -[place]olande arthritis of the lower back and ankles -BPH -Depression -Chronic nicotine dependence patient's cigarette smoker -Acute COPD exacerbation in a current smoker Plan: Patient be placed on nebulized bronchodilator. Search to oral antibiotic. Short burst of steroids. Seen by cardiology. Scheduled for a cardiac catheterization tomorrow. Care was discussed with the patient. Questions were answered.
[2019-12-11 19:32] VITALS: RESP 18
[2019-12-11] MEDS: LEVOFLOXACIN 500MG-D5W PMX 500 MG in DEXTROSE/WATER 1 100ML.BAG IVPB SCH (20:43)
[2019-12-11] MEDS: ENOXAPARIN 40 MG/0.4 ML SYRINGE SQ SCH (20:53)
[2019-12-11] MEDS: methylPREDNISolone SOD SUCCI 40 MG/ML 1 ML VIAL IV SCH ×2 (20:53→23:21)
[2019-12-11] MEDS: ASPIRIN 81 MG PO SCH (20:54)
[2019-12-11] MEDS: ATORVASTATIN 40 MG TAB PO SCH (20:54)
[2019-12-11] MEDS: ESCITALOPRAM 10 MG TAB PO SCH (20:54)
[2019-12-11] MEDS: INSULIN ASPART (NovoLOG) 100 UNIT/ML VIAL SQ SCH (21:21)
[2019-12-12] MEDS: IPRATROPIUM-ALBUTEROL 3 ML NEB INHALATION SCH ×5 (00:13→15:20)
[2019-12-12] MEDS ORDERED: ASPIRIN 325 MG TAB PO ONE (06:00)
[2019-12-12] MEDS: PANTOPRAZOLE 40 MG TABLET PO SCH (06:37)
[2019-12-12] MEDS: ATORVASTATIN 40 MG TAB PO SCH (06:38)
[2019-12-12] MEDS: methylPREDNISolone SOD SUCCI 40 MG/ML 1 ML VIAL IV SCH ×2 (06:38→16:41)
[2019-12-12 06:51] LABS: Glucose,Whole Blood 211 mg/dL (75-99)
[2019-12-12] MEDS: INSULIN ASPART (NovoLOG) 100 UNIT/ML VIAL SQ SCH ×3 (08:16→17:37)
[2019-12-12] MEDS: ENOXAPARIN 40 MG/0.4 ML SYRINGE SQ SCH (08:17)
[2019-12-12 08:41] LABS: Basophils % (A) 0 %; Eosinophils % (A) 0 %; HCT 39.4 % (39.0-53.0); HGB 12.9 gm/dL (13.0-17.5); Lymphocytes % (A) 15 %; MCH 31.6 pg (25.0-35.0); MCHC 32.7 g/dL (31.0-37.0); MCV 96.8 fL (80.0-100.0); Mean Platelet Volume 7.5; Monocytes # (A) 0.2 k/uL (0-1.0); Monocytes % (A) 2 %; Neutrophils # (A) 5.4 k/uL (1.3-7.7); Neutrophils % (A) 82 %; Platelet Count 263 k/uL (150-450); RBC 4.08 m/uL (4.30-5.90); RDW 13.6 % (11.5-15.5); WBC 6.6 k/uL (3.8-10.6)
[2019-12-12 08:51] LABS: African American GFR (CKD) >90 (>60 ml/min/1.73 sqM); Anion Gap 10 mmol/L; Blood Urea Nitrogen 10 mg/dL (9-20); Calcium 8.6 mg/dL (8.4-10.2); Carbon Dioxide 19 mmol/L (22-30); Chloride 108 mmol/L (98-107); Glucose 153 mg/dL (74-99); Non-African American GFR(CKD) >90 (>60 ml/min/1.73 sqM); Potassium 4.1 mmol/L (3.5-5.1); Sodium 137 mmol/L (137-145)
[2019-12-12] MEDS: NICOTINE 14MG/24HR PATCH TRANSDERM SCH (10:34)
[2019-12-12] MEDS ORDERED: IV FLUID CONTINUATION 1,000 ML IV ONE (11:27)
[2019-12-12] MEDS ORDERED: fentaNYL (PF) 50 MCG/ML 2 ML AMP ONE (11:32)
[2019-12-12] MEDS ORDERED: VERAPAMIL 2.5 MG/ML 2 ML AMP ONE (11:32)
[2019-12-12] MEDS ORDERED: HEPARIN SODIUM 1,000 UN/ML (10ML VL) ONE (11:32)
[2019-12-12] MEDS ORDERED: LIDOCAINE 1% INJ 10MG/ML (20 ML MDV) ONE (11:32)
[2019-12-12] MEDS ORDERED: SODIUM CHLORIDE 0.9% 1,000 ML IV ONE (11:42)
[2019-12-12] MEDS ORDERED: fentaNYL (PF) 50 MCG/ML 2 ML AMP IV ONE (11:56)
[2019-12-12] MEDS ORDERED: LIDOCAINE 1% INJ 10MG/ML (20 ML MDV) SQ ONE (11:57)
[2019-12-12] MEDS: VERAPAMIL SYRINGE (5 MG/10 ML) INTRAARTER ONE ×2 (11:59→12:05)
[2019-12-12] MEDS ORDERED: MIDAZOLAM 2 MG/2 ML VIAL IV ONE (11:59)
[2019-12-12] MEDS ORDERED: HYDROmorphone 1 MG/ML 1 ML SYRINGE ONE (12:04)
[2019-12-12] MEDS ORDERED: IOPAMIDOL-370 100ML BTL INJ ONE (12:21)
[2019-12-12] MEDS ORDERED: IOPAMIDOL-370 125ML BTL INJ ONE (12:21)
[2019-12-12 12:49] LABS: Glucose,Whole Blood 114 mg/dL (75-99)
[2019-12-12] MEDS ORDERED: RX INFO: IV CONTRAST WAS GIVEN 1 EACH MISC MISCELLANE PRN (12:49)
[2019-12-12] MEDS ORDERED: SODIUM CHLORIDE 0.9% 1,000 ML IV SCH (13:00)
--- NOTE | 2019-12-12 13:23 | CC ---
CARDIAC CATHETERIZATION REPORT Mr. Sen is a 59-year-old male with known history of severe peripheral vascular disease, total occlusion of his abdominal aorta, history of chronic tobacco use as well as a history of hyperlipidemia, who presented with symptoms of chest discomfort. He subsequently underwent a myocardial perfusion imaging that revealed evidence of inducible ischemia. In view of that, recommendation was made regarding cardiac catheterization. The procedure as well as the risks and the complications were discussed with the patient who is in full understanding and agreement. PROCEDURE: Patient was brought to labor relations supervisor in a fasting semi-sedated state after receiving fentanyl and Benadryl and achieving moderate conscious sedated state. Using Xylocaine anesthesia in the Seldinger technique, a 6-Korean sheath was introduced in the right radial artery. Selective right and left coronary angiography performed using 5-Korean 3.5 bend right and left Andreas catheter. Multiple views of the coronary artery including hemiaxial views were obtained. Following that 5-Korean tight pigtail catheter introduced in the left ventricle and a 30-degree WHYTE view of the left ventricle was obtained. Following that, the pigtail was introduced in the descending abdominal aorta and an angiogram was performed. Following that, catheter and sheath were removed. Hemostasis was obtained with deployment of TR band. There was no immediate complication. Patient was returned to his room in a stable condition. Of note, the patient received 4000 units of intravenous heparin as well as intra-arterial verapamil. FINDINGS: LEFT MAIN: This is a large-sized vessel trifurcating left circumflex, left anterior descending artery and ramus intermedius. Left main coronary artery has no evidence of high-grade stenosis. LEFT ANTERIOR DESCENDING ARTERY: This is a large-sized vessel reaching to the apex with a wraparound apex segment giving rise to a moderately sized diagonal branch in mid segment. The left anterior descending artery has 20% plaque in the mid segment without any evidence of high-grade stenosis. LEFT CIRCUMFLEX: This is a nondominant vessel, small in caliber giving rise to 2 small obtuse marginal branches. The left circumflex has no evidence of obstructive coronary artery disease. RAMUS INTERMEDIUS: This is a large-sized vessel reaching toward the apical lateral wall. The ramus intermedius has no evidence of high-grade stenosis. RIGHT CORONARY ARTERY: This is a large dominant vessel bifurcating into PDA and posterolateral segment and branches. The right coronary artery has mild intimal disease in mid segment for 20%. The rest of the vessel has no high-grade stenosis. LEFT VENTRICULOGRAM: Left ventriculogram was performed in 30-degree WHYTE view and revealed normal left ventricular size and systolic function. Ejection fraction is 60%. There was catheter- induced arrhythmia. AORTOGRAM: Aortogram showed a totally occluded aorta in the infrarenal segment with good collaterals noted. HEMODYNAMICS: There was no gradient across the aortic valve. The left ventricular end-diastolic pressure was 12 to 16 mmHg. CONCLUSION: 1. Mild obstructive disease involving the left anterior descending artery and the right coronary artery. 2. Normal left ventricular size and systolic function. 3. Chronically occluded aorta in the infrarenal segment with good collaterals. RECOMMENDATION: In view of finding and anatomy, I recommend continue medical therapy with aggressive coronary risk modifications that has been initiated. Those findings and recommendation were discussed with the patient and his family who are in full understanding and agreement. Duration of procedure is 30 minutes. MOSHE / JUAN: [id number] /
--- NOTE | 2019-12-12 13:26 | LTR ---
December 12, 2019 Re: Robert Sen Dear Dr. Rojas: I had the opportunity to perform cardiac catheterization on Mr. Sen at [facility] on the 11 of December and a full copy of procedure note will be forwarded to you. In brief, he was found to have mild obstructive disease involving the LAD and the right coronary artery with a preserved left ventricular systolic function and a chronically occluded aorta in the infrarenal segment. Based on those findings, I recommend continued medical therapy with aggressive coronary risk modifications that has been initiated. Thank you again for allowing me the opportunity to participate in his care. Please feel free to call for any questions. Sincerely yours, MD LUIS FELIPE WaiteL / DAVIDN: [id number] /
[2019-12-12 16:34] VITALS: BP 132/74; PULSE 102; TEMP 98.2
[2019-12-12 16:57] LABS: Glucose,Whole Blood 167 mg/dL (75-99)
--- NOTE | 2019-12-12 21:03 | P.DS ---
Providers Date of admission: 12/11/19 12:44 Expected date of discharge: 12/12/19 Attending physician: Berry Dangelo Consults: 12/10/19 15:43 Consult Physician Urgent Consulting Provider: Laura Serrano Consult Reason/Comments: Chest pain Do you want consulting provider notified?: Yes Primary care physician: [facility] Course: Presenting complaint: Chest pain Interval history: This is a 59-year-old patient of Dr. Rojas. Presented with 2 weeks of chest congestion cough chest pain. 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 Has had 2 episodes of flu last month. Patient had a positive nuclear stress test. Today-Negative cardiac catheterization. No chest pain. Consultation: Dr. Gipson from cardiology On examination: VITAL SIGNS: 97.5, 87, 18, blood pressure 118/63, 90% on room air GENERAL APPEARANCE: Average build. Sitting up comfortable HEENT: Normal external appearance of nose and ear. Oral cavity normal EYES: Pupils equal. Conjunctiva normal. NECK: JVD not raised. Mass not palpable. RESPIRATORY: Respiratory effort normal. Decreased breath sounds. CARDIOVASCULAR: First and second sounds normal. No edema. ABDOMEN: Soft. Liver and spleen not palpable. No tenderness. No mass palpable. PSYCHIATRY: Alert and oriented x3. Mood and affect normal. 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 -BPH -Depression -Chronic nicotine dependence patient's cigarette smoker -Acute COPD exacerbation in a current smoker Disposition: Home Patient Condition at Discharge: Stable Plan - Discharge Summary Discharge Rx Participant: No New Discharge Prescriptions: New Ipratropium Camino [Atrovent Hfa] 2 puff INHALATION QID #1 inhaler Cefuroxime Axetil [Ceftin] 500 mg PO BID 3 Days #6 tab Nicotine 14Mg/24Hr Patch [Habitrol] 1 patch TRANSDERM DAILY #14 patch Nicotine Polacrilex [Nicorette] 2 mg BUCCAL Q4H #30 gum predniSONE 10 mg PO DAILY #30 tab Albuterol Inhaler [Ventolin Hfa Inhaler] 1 - 2 puff INHALATION RT-Q6H PRN #1 inhaler PRN Reason: Wheezing Continue Atorvastatin [Lipitor] 80 mg PO HS Escitalopram [Lexapro] 10 mg PO HS Aspirin EC [Ecotrin Low Dose] 81 mg PO HS Discharge Medication List Atorvastatin [Lipitor] 80 mg PO HS 05/18/15 [History] Escitalopram [Lexapro] 10 mg PO HS 12/07/18 [History] Aspirin EC [Ecotrin Low Dose] 81 mg PO HS 12/10/19 [History] Albuterol Inhaler [Ventolin Hfa Inhaler] 1 - 2 puff INHALATION RT-Q6H PRN #1 inhaler 12/12/19 [Rx] Cefuroxime Axetil [Ceftin] 500 mg PO BID 3 Days #6 tab 12/12/19 [Rx] Ipratropium Camino [Atrovent Hfa] 2 puff INHALATION QID #1 inhaler 12/12/19 [Rx] Nicotine 14Mg/24Hr Patch [Habitrol] 1 patch TRANSDERM DAILY #14 patch 12/12/19 [Rx] Nicotine Polacrilex [Nicorette] 2 mg BUCCAL Q4H #30 gum 12/12/19 [Rx] predniSONE 10 mg PO DAILY #30 tab 12/12/19 [Rx] Follow up Appointment(s)/Referral(s): Javad Gipson MD [STAFF PHYSICIAN] - 12/19/19 10:45 am Yaya Rojas DO [Primary Care Provider] - 1-2 days Patient Instructions/Handouts: Left Heart Catheterization (DC), How to Stop Smoking (DC) Discharge Disposition: HOME SELF-CARE
== END 2019-12-12 19:47 | disposition home or self-care (01) | DRG 287 ==
LOC: EC 14:11 → 1SOBS 16:00 → OBSVTOIN 12-11 12:44
PROVIDERS: ADMIT Hospitalist; ATTEND Hospitalist
PROC: B2111ZZ Fluoroscopy of Multiple Coronary Arteries using Low Osmolar Contrast (ICD-10-PCS; principal; 2019-12-12 12:00)
PROC: 4A023N7 Measurement of Cardiac Sampling and Pressure, Left Heart, Percutaneous Approach (ICD-10-PCS; principal; 2019-12-12 12:00)
DX: R07.89 Other chest pain (principal); J44.1 Chronic obstructive pulmonary disease with (acute) exacerbation; E78.5 Hyperlipidemia, unspecified; F17.210 Nicotine dependence, cigarettes, uncomplicated; F32.9 Major depressive disorder, single episode, unspecified; H91.90 Unspecified hearing loss, unspecified ear; N40.0 Benign prostatic hyperplasia without lower urinary tract symptoms; M47.816 Spondylosis without myelopathy or radiculopathy, lumbar region; I35.0 Nonrheumatic aortic (valve) stenosis; K21.9 Gastro-esophageal reflux disease without esophagitis; Z79.82 Long term (current) use of aspirin; Z79.899 Other long term (current) drug therapy; Z82.49 Family history of ischemic heart disease and other diseases of the circulatory system; Z90.49 Acquired absence of other specified parts of digestive tract; Z98.890 Other specified postprocedural states
CPT/HCPCS: 36415; 71046; 78452; 80048; 80053; 80061; 83735; 84484; 85025; 85610; 85730; 87502; 93005; 93017; 93306; 93458; 93567; 94640

== ENCOUNTER 2020-10-09 17:01 | Emergency (ER) | payer BC ==
[2020-10-09 17:13] VITALS: TEMP 98.1
[2020-10-09] MEDS ORDERED: amLODIPine 5 MG TAB PO STA (17:17)
[2020-10-09] MEDS ORDERED: cloNIDine HCL 0.1 MG TAB PO STA (17:17)
--- NOTE | 2020-10-09 17:50 | CT ---
EXAMINATION TYPE: CT brain wo con DATE OF EXAM: 10/09/2020 COMPARISON: None available. HISTORY: CONNELLY and hypertension CT DLP: 1070.4 mGycm Automated exposure control for dose reduction was used. FINDINGS: There is no acute intracranial hemorrhage, mass effect, midline shift or hydrocephalus. The white mat ter is grossly preserved. The paranasal sinuses demonstrate mild disease. The mastoid air cells are adequately aerated. The laura varium is intact. IMPRESSION: NO ACUTE INTRACRANIAL ABNORMALITY. MILD PARANASAL SINUS DISEASE.
[2020-10-09 17:51] LABS: ALT 37 U/L (4-49); AST 35 U/L (17-59); African American GFR (CKD) >90 (>60 ml/min/1.73 sqM); Albumin 3.9 g/dL (3.5-5.0); Alkaline Phosphatase 121 U/L (38-126); Anion Gap 6 mmol/L; Blood Urea Nitrogen 13 mg/dL (9-20); Carbon Dioxide 24 mmol/L (22-30); Chloride 106 mmol/L (98-107); Glucose 99 mg/dL (74-99); Non-African American GFR(CKD) >90 (>60 ml/min/1.73 sqM); Potassium 4.4 mmol/L (3.5-5.1); Sodium 136 mmol/L (137-145); Total Bilirubin 0.5 mg/dL (0.2-1.3); Total Protein 6.9 g/dL (6.3-8.2)
[2020-10-09 18:19] VITALS: BP 179/99; PULSE 82; RESP 24
--- NOTE | 2020-10-09 18:27 | ED ---
Recheck HPI - General Chief Complaint: Recheck/Abnormal Lab/Rx Stated Complaint: hypertension Time Seen by Provider: 10/09/20 17:03 Source: patient Mode of arrival: ambulatory Limitations: no limitations - History of Present Illness Initial Comments: Patient sent to the emerge department for elevated blood pressure. He has a mild headache. This is not the worse headache of his life. Nothing makes it better or worse. The headache comes and goes. He has taken no medicine for this. He has no nausea or vomiting. He has no change in vision or hearing. He has no neck pain or stiffness. He has no fevers or chills. He has no chest pain. He has no palpitations. He has no shortness of breath. He has no swelling in the arms or legs. He has no lightheadedness or dizziness. - Related Data Home Medications Medication Instructions Recorded Confirmed Atorvastatin [Lipitor] 80 mg PO HS 05/18/15 10/09/20 Aspirin EC [Ecotrin Low Dose] 81 mg PO HS 12/10/19 10/09/20 Allergies Allergy/AdvReac Type Severity Reaction Status Date / Time No Known Allergies Allergy Verified 10/09/20 18:10 Review of Systems ROS Statement: Those systems with pertinent positive or pertinent negative responses have been documented in the HPI. ROS Other: All systems not noted in ROS Statement are negative. Past Medical History Past Medical History: Chest Pain / Angina, GERD/Reflux, Hearing Disorder / Deafness, Hyperlipidemia, Prostate Disorder, Vascular Disorder Additional Past Medical History / Comment(s): Severe aortic blockage below renal artery-has been seen at [facility], [facility] and [facility], chronic bilateral leg pain, bilateral hands/feet numbness and tingling, optic migraines, sepsis in 2014, 2 lesions in throat, arthritis in lower back and ankles, enlarged prostate, sepsis History of Any Multi-Drug Resistant Organisms: None Reported Past Surgical History: Cholecystectomy Additional Past Surgical History / Comment(s): Microlaryngoscopy 11-28-18,Colonoscopy, anal fissure repair, colonoscopy with benign polypectomy Past Anesthesia/Blood Transfusion Reactions: No Reported Reaction Additional Past Anesthesia/Blood Transfusion Reaction / Comment(s): states has experienced balance issues after anesthesia Past Psychological History: Depression Smoking Status: Current every day smoker Past Alcohol Use History: None Reported Past Drug Use History: None Reported - Past Family History Mother Family Medical History: No Reported History Sister(s) Family Medical History: Cancer Additional Family Medical History / Comment(s): breast Father Family Medical History: Hyperlipidemia, Hypertension, Myocardial Infarction ([place]) Additional Family Medical History / Comment(s): cad General Exam Limitations: no limitations General appearance: alert, in no apparent distress Head exam: Present: atraumatic, normocephalic, normal inspection Eye exam: Present: normal appearance, PERRL, EOMI. Absent: scleral icterus, conjunctival injection, periorbital swelling ENT exam: Present: normal exam, mucous membranes moist Neck exam: Present: normal inspection. Absent: tenderness, meningismus, lymph adenopathy Respiratory exam: Present: normal lung sounds bilaterally. Absent: respiratory distress, wheezes, rales, rhonchi, stridor Cardiovascular Exam: Present: regular rate, normal rhythm, normal heart sounds. Absent: systolic murmur, diastolic murmur, rubs, gallop, clicks GI/Abdominal exam: Present: soft, normal bowel sounds. Absent: distended, tenderness, guarding, rebound, rigid Extremities exam: Present: normal inspection, full ROM, normal capillary refill. Absent: tenderness, pedal edema, joint swelling, calf tenderness Back exam: Present: normal inspection Neurological exam: Present: alert, oriented X3, CN II-XII intact Psychiatric exam: Present: normal affect, normal mood Skin exam: Present: warm, dry, intact, normal color. Absent: rash Course Vital Signs 10/09/20 10/09/20 17:08 18:00 Temperature 98.1 F Pulse Rate 86 82 Respiratory 18 24 Rate Blood Pressure 179/101 179/99 O2 Sat by Pulse 98 93 L Oximetry Medical Decision Making - Medical Decision Making Patient complains of headache. His exam is unremarkable. He has no neurological deficits. I obtained a CT the head. It is negative. Laboratory studies show normal lites and kidney functioning. I gave him a dose of blood pressure medication. He is feeling better. I advised the patient that chronically elevated blood pressure can cause permanent damage to the organs, but an increased risk for stroke or bleed in the head. I instructed him to follow-up with his primary care doctor within 3 days, to return to the ER if his symptoms worsen or if he develops any other proms or complaints. - Lab Data Result diagrams: 10/09/20 17:29 Lab Results 10/09/20 Range/Units 17:29 Sodium 136 L (137-145) mmol/L Potassium 4.4 (3.5-5.1) mmol/L Chloride 106 (98-107) mmol/L Carbon Dioxide 24 (22-30) mmol/L Anion Gap 6 mmol/L BUN 13 (9-20) mg/dL Creatinine 0.76 (0.66-1.25) mg/dL Est GFR (CKD-EPI)AfAm >90 (>60 ml/min/1.73 sqM) Est GFR (CKD-EPI)NonAf >90 (>60 ml/min/1.73 sqM) Glucose 99 (74-99) mg/dL Calcium 9.0 (8.4-10.2) mg/dL Total Bilirubin 0.5 (0.2-1.3) mg/dL AST 35 (17-59) U/L ALT 37 (4-49) U/L Alkaline Phosphatase 121 (38-126) U/L Total Protein 6.9 (6.3-8.2) g/dL Albumin 3.9 (3.5-5.0) g/dL Disposition Clinical Impression: Hypertension Disposition: HOME SELF-CARE Condition: Good Instructions (If sedation given, give patient instructions): Hypertension (ED) Is patient prescribed a controlled substance at d/c from ED?: No Referrals: Yaya Rojas DO [Primary Care Provider] - 1-2 days
== END 2020-10-09 18:42 | disposition home or self-care (01) ==
LOC: EC 17:01
DX: I10 Essential (primary) hypertension (principal); E78.5 Hyperlipidemia, unspecified; M19.90 Unspecified osteoarthritis, unspecified site; I20.9 Angina pectoris, unspecified; F17.200 Nicotine dependence, unspecified, uncomplicated; Z79.82 Long term (current) use of aspirin
CPT/HCPCS: 36415; 70450; 80053; 99284

== ENCOUNTER 2020-10-18 19:27 | Observation (INO) | payer BC ==
[2020-10-18] MEDS ORDERED: ASPIRIN 81 MG PO STA (19:40)
--- NOTE | 2020-10-18 19:53 | ED ---
General Adult HPI - General Chief complaint: Chest Pain Stated complaint: chest pain Time Seen by Provider: 10/18/20 19:32 Source: patient Mode of arrival: wheelchair Limitations: no limitations - History of Present Illness Initial comments: 60 year-old male patient with past medical history significant for newly diagnosed hypertension, hyperlipidemia, and aortic occlusion, presents to the emergency department for evaluation of chest pain. Patient states he woke today with a pressure over the left side of his chest. States that it has been intermittent throughout the day. His most recent episode lasted a couple of hours so he took a nitro which completely relieved his symptoms. Patient denies any shortness of breath, nausea, sweats, or dizziness. States his blood pressure has been elevated today around 180/100. He did start two new blood pressure medications within the last couple of weeks, lisinopril and amlodipine. He states his father from a "heart blockage", denies any other known family history of cardiac disease. He denies any cough or congestion. Denies fever or chills. Patient denies any recent rash, abdominal pain, diarrhea, constipation, back pain, numbness, tingling, weakness, hematuria, dysuria, urinary urgency, urinary frequency, headache, visual changes, or any other complaints. - Related Data Home Medications Medication Instructions Recorded Confirmed Aspirin EC [Ecotrin Low Dose] 81 mg PO HS 12/10/19 10/18/20 Atorvastatin [Lipitor] 80 mg PO DAILY 10/18/20 10/18/20 Lisinopril [Prinivil] 10 mg PO DAILY 10/18/20 10/18/20 Nitroglycerin Sl Tabs [Nitrostat] 0.4 mg SUBLINGUAL Q5M PRN 10/18/20 10/18/20 amLODIPine [Norvasc] 5 mg PO HS 10/18/20 10/18/20 Allergies Allergy/AdvReac Type Severity Reaction Status Date / Time No Known Allergies Allergy Verified 10/18/20 20:29 Review of Systems ROS Statement: Those systems with pertinent positive or pertinent negative responses have been documented in the HPI. ROS Other: All systems not noted in ROS Statement are negative. Past Medical History Past Medical History: Chest Pain / Angina, GERD/Reflux, Hearing Disorder / Deafness, Hyperlipidemia, Prostate Disorder, Vascular Disorder Additional Past Medical History / Comment(s): Severe aortic blockage below renal artery-has been seen at [facility] and [facility], chronic bilateral leg pain, bilateral hands/feet numbness and tingling, optic migraines, sepsis in 2015, 2 lesions in throat, arthritis in lower back and ankles, enlarged prostate, sepsis History of Any Multi-Drug Resistant Organisms: None Reported Past Surgical History: Cholecystectomy Additional Past Surgical History / Comment(s): Microlaryngoscopy 19,Colonoscopy, anal fissure repair, colonoscopy with benign polypectomy Past Anesthesia/Blood Transfusion Reactions: No Reported Reaction Additional Past Anesthesia/Blood Transfusion Reaction / Comment(s): states has experienced balance issues after anesthesia Past Psychological History: Depression Smoking Status: Current every day smoker Past Alcohol Use History: None Reported Past Drug Use History: None Reported - Past Family History Mother Family Medical History: No Reported History Sister(s) Family Medical History: Cancer Additional Family Medical History / Comment(s): breast Father Family Medical History: Hyperlipidemia, Hypertension, Myocardial Infarction ([place]) Additional Family Medical History / Comment(s): cad General Exam Limitations: no limitations General appearance: alert, in no apparent distress, other (This is a well- developed, well-nourished adult male patient in no acute distress. Vital signs upon presentation are temperature 97.9F, pulse 77, respirations 18, blood pressure 154/81, pulse ox 96% on room air.) Respiratory exam: Present: normal lung sounds bilaterally. Absent: respiratory distress, wheezes, rales, rhonchi, stridor Cardiovascular Exam: Present: regular rate, normal rhythm, normal heart sounds. Absent: systolic murmur, diastolic murmur, rubs, gallop, clicks GI/Abdominal exam: Present: soft, normal bowel sounds. Absent: distended, tenderness, guarding, rebound, rigid Neurological exam: Present: alert, oriented X3, CN II-XII intact Psychiatric exam: Present: normal affect, normal mood Skin exam: Present: warm, dry, intact, normal color. Absent: rash Course Vital Signs 10/18/20 10/18/20 10/18/20 19:27 19:41 20:00 Temperature 97.9 F Pulse Rate 77 64 Pulse Rate [ 81 Rental Agent ] Respiratory 18 18 Rate Blood Pressure 154/81 148/84 O2 Sat by Pulse 96 Oximetry EKG Findings - EKG Comments: EKG Findings:: EKG obtained in 1938 shows normal sinus rhythm with a ventricular rate is 74, [place] interval 144, QRS duration 84, QT 392, QTc 435. No evidence of ST elevation or depression Medical Decision Making - Medical Decision Making 60-year-old male patient presented to the emergency department today for evaluation of left chest pressure intermittent throughout the day today. Did receive nitro at home. Physical examination was unremarkable. EKG was unremarkable. Labs reviewed and did reveal a negative troponin. Chest x-ray was unremarkable. He'll be admitted to the hospital for serial troponins and further evaluation by cardiology in the morning due to history of new-onset hypertension and aortic occlusion. Patient is agreeable this plan. - Lab Data Result diagrams: 10/18/20 19:53 10/18/20 19:53 Lab Results 10/18/20 10/18/20 10/18/20 Range/Units 19:53 19:53 19:53 WBC 11.8 H (3.8-10.6) k/uL RBC 4.57 (4.30-5.90) m/uL Hgb 15.0 (13.0-17.5) gm/dL Hct 42.7 (39.0-53.0) % MCV 93.4 (80.0-100.0) fL MCH 32.8 (25.0-35.0) pg MCHC 35.1 (31.0-37.0) g/dL RDW 12.8 (11.5-15.5) % Plt Count 294 (150-450) k/uL MPV 6.8 Neutrophils % 46 % Lymphocytes % 42 % Monocytes % 5 % Eosinophils % 3 % Basophils % 1 % Neutrophils # 5.5 (1.3-7.7) k/uL Lymphocytes # 4.9 H (1.0-4.8) k/uL Monocytes # 0.6 (0-1.0) k/uL Eosinophils # 0.4 (0-0.7) k/uL Basophils # 0.1 (0-0.2) k/uL PT 9.8 (9.0-12.0) sec INR 0.9 (<1.2) APTT 26.7 (22.0-30.0) sec Sodium 134 L (137-145) mmol/L Potassium 4.3 (3.5-5.1) mmol/L Chloride 102 (98-107) mmol/L Carbon Dioxide 25 (22-30) mmol/L Anion Gap 7 mmol/L BUN 17 (9-20) mg/dL Creatinine 0.94 (0.66-1.25) mg/dL Est GFR (CKD-EPI)AfAm >90 (>60 ml/min/1.73 sqM) Est GFR (CKD-EPI)NonAf 88 (>60 ml/min/1.73 sqM) Glucose 115 H (74-99) mg/dL Calcium 9.1 (8.4-10.2) mg/dL Magnesium 2.0 (1.6-2.3) mg/dL Total Bilirubin 0.4 (0.2-1.3) mg/dL AST 28 (17-59) U/L ALT 30 (4-49) U/L Alkaline Phosphatase 100 (38-126) U/L Troponin I (0.000-0.034) ng/mL Total Protein 6.8 (6.3-8.2) g/dL Albumin 3.9 (3.5-5.0) g/dL 10/18/20 Range/Units 19:53 WBC (3.8-10.6) k/uL RBC (4.30-5.90) m/uL Hgb (13.0-17.5) gm/dL Hct (39.0-53.0) % MCV (80.0-100.0) fL MCH (25.0-35.0) pg MCHC (31.0-37.0) g/dL RDW (11.5-15.5) % Plt Count (150-450) k/uL MPV Neutrophils % % Lymphocytes % % Monocytes % % Eosinophils % % Basophils % % Neutrophils # (1.3-7.7) k/uL Lymphocytes # (1.0-4.8) k/uL Monocytes # (0-1.0) k/uL Eosinophils # (0-0.7) k/uL Basophils # (0-0.2) k/uL PT (9.0-12.0) sec INR (<1.2) APTT (22.0-30.0) sec Sodium (137-145) mmol/L Potassium (3.5-5.1) mmol/L Chloride (98-107) mmol/L Carbon Dioxide (22-30) mmol/L Anion Gap mmol/L BUN (9-20) mg/dL Creatinine (0.66-1.25) mg/dL Est GFR (CKD-EPI)AfAm (>60 ml/min/1.73 sqM) Est GFR (CKD-EPI)NonAf (>60 ml/min/1.73 sqM) Glucose (74-99) mg/dL Calcium (8.4-10.2) mg/dL Magnesium (1.6-2.3) mg/dL Total Bilirubin (0.2-1.3) mg/dL AST (17-59) U/L ALT (4-49) U/L Alkaline Phosphatase (38-126) U/L Troponin I <0.012 (0.000-0.034) ng/mL Total Protein (6.3-8.2) g/dL Albumin (3.5-5.0) g/dL - Radiology Data Radiology results: report reviewed, image reviewed Two-view x-ray of the chest is obtained. Report is reviewed in its entirety. Impression by Dr. Singh shows normal chest. No change. Disposition Clinical Impression: Chest pain Disposition: ADMITTED IP TO THIS [facility] Condition: Serious Referrals: Yaya Rojas DO [Primary Care Provider] - 1-2 days Decision to Admit Reason: Admit from EC Decision Date: 10/18/20 Decision Time: 20:57
[2020-10-18 20:04] LABS: Basophils # (A) 0.1 k/uL (0-0.2); Basophils % (A) 1 %; Eosinophils # (A) 0.4 k/uL (0-0.7); Eosinophils % (A) 3 %; HCT 42.7 % (39.0-53.0); Lymphocytes # (A) 4.9 k/uL (1.0-4.8); Lymphocytes % (A) 42 %; MCH 32.8 pg (25.0-35.0); MCHC 35.1 g/dL (31.0-37.0); MCV 93.4 fL (80.0-100.0); Mean Platelet Volume 6.8; Monocytes # (A) 0.6 k/uL (0-1.0); Monocytes % (A) 5 %; Neutrophils # (A) 5.5 k/uL (1.3-7.7); Neutrophils % (A) 46 %; Platelet Count 294 k/uL (150-450); RBC 4.57 m/uL (4.30-5.90); RDW 12.8 % (11.5-15.5); WBC 11.8 k/uL (3.8-10.6)
--- NOTE | 2020-10-18 20:10 | XR ---
EXAMINATION TYPE: XR chest 2V DATE OF EXAM: 10/18/2020 COMPARISON: 12/10/2019 HISTORY: Chest pain TECHNIQUE: FINDINGS: Heart and mediastinum are normal. Lungs are clear. Diaphragm is normal. Bony thorax appears normal. There are chest leads. IMPRESSION: Normal chest. No change
[2020-10-18 20:12] LABS: ALT 30 U/L (4-49); AST 28 U/L (17-59); African American GFR (CKD) >90 (>60 ml/min/1.73 sqM); Albumin 3.9 g/dL (3.5-5.0); Alkaline Phosphatase 100 U/L (38-126); Anion Gap 7 mmol/L; Blood Urea Nitrogen 17 mg/dL (9-20); Calcium 9.1 mg/dL (8.4-10.2); Carbon Dioxide 25 mmol/L (22-30); Chloride 102 mmol/L (98-107); Glucose 115 mg/dL (74-99); Non-African American GFR(CKD) 88 (>60 ml/min/1.73 sqM); Potassium 4.3 mmol/L (3.5-5.1); Sodium 134 mmol/L (137-145); Total Bilirubin 0.4 mg/dL (0.2-1.3); Total Protein 6.8 g/dL (6.3-8.2)
[2020-10-18 20:24] LABS: INR 0.9 (<1.2); Partial Thromboplastin Time 26.7 sec (22.0-30.0); Prothrombin Time 9.8 sec (9.0-12.0)
[2020-10-18] MEDS ORDERED: NALOXONE 0.4 MG/ML 1 ML VIAL IV PRN (20:54)
[2020-10-18] MEDS ORDERED: NITROGLYCERIN SL TABS 0.4 MG TAB SUBLINGUAL PRN (20:55)
[2020-10-18] MEDS ORDERED: amLODIPine 5 MG TAB PO SCH (22:15)
[2020-10-18] MEDS ORDERED: ASPIRIN 81 MG PO SCH (22:15)
[2020-10-18 22:34] VITALS: TEMP 97.9
[2020-10-18] MEDS ORDERED: ATORVASTATIN 80 MG TAB PO SCH (23:15)
[2020-10-19] MEDS ORDERED: hydroCHLOROthiazide 25 MG TAB PO SCH (09:00)
[2020-10-19] MEDS ORDERED: ASPIRIN 325 MG TAB PO SCH (09:00)
[2020-10-19] MEDS ORDERED: lisinopriL 10 MG TAB PO SCH (09:00)
--- NOTE | 2020-10-19 09:58 | CONS ---
CONSULTATION Mr. Sen is a 60-year-old male with known history of mild coronary artery disease by cardiac catheterization in november of 2019, history of peripheral vascular disease with occluded aorta followed at [facility]. History of chronic tobacco use and hypertension who presented with elevated blood pressure. According to him, his blood pressure has been elevated over the last few weeks and amlodipine was added to his regimen by Dr. Rojas. He had some headache with it yesterday. He also had some chest discomfort and because of that, he came into the emergency room. The patient's breathing is stable. He has chronic dyspnea on exertion. He has chronic intermittent claudication. He denies any dizziness, palpitation. No PND. No orthopnea. No peripheral edema. Unfortunately, he continues to smoke. MEDICATION: At home includes lisinopril 10 mg daily, amlodipine 5 mg daily, atorvastatin 80 mg daily and aspirin once a day. REVIEW OF SYSTEMS: Respiratory system: He has dyspnea on exertion, history of chronic tobacco use. No recent wheezing or cough. GI system: No recent GI bleeding. No peptic ulcer disease. system: No dysuria or hematuria. Nervous system: No stroke or seizure. PHYSICAL EXAMINATION: He is a 60-year-old male, alert, oriented, no apparent distress. Blood pressure running in the 140s to 170s with a heart rate 60. HEAD: Normocephalic. Eyes: Sclerae anicteric. NECK: Good upstroke. No bruit. LUNGS: No wheezes or rales. HEART: Regular rate and rhythm S1, S2. No S3 with systolic murmur at the base. No diastolic murmur. No rub. ABDOMEN: Soft. Nontender. Positive bowel sounds. No organomegaly. EXTREMITIES: No edema. LAB DATA: Revealed troponin less than 0.012 for 3 samples. BUN and creatinine 17 and 0.94, potassium 4.3, hemoglobin of 15. His EKG revealed sinus mechanism, normal axis and intervals, evidence of left ventricular hypertrophy. Chest x-ray shows no acute infiltrate. IMPRESSION: 1. Hypertension, elevated under better control now. 2. Chest discomfort with no evidence for acute coronary syndrome. The patient had a cardiac catheterization less than a year ago that revealed mild coronary artery disease. 3. Hyperlipidemia. 4. Chronic tobacco use. 5. Peripheral vessel disease. RECOMMENDATION: I will add to his regimen hydrochlorothiazide 25 mg daily, increase his activity. If he remains stable, I would expect he should be able to be discharged home today and followed as an outpatient. Thank you for this consult. We will follow with you. MOSHE / JUAN: [id number] /
--- NOTE | 2020-10-19 10:27 | ECHOF ---
Referral Reason:Chest Pain MEASUREMENTS -------- HEIGHT: 182.9 cm WEIGHT: 81.7 kg BP: RVIDd: 3.5 cm (< 3.3) IVSd: 1.2 cm (0.6 - 1.1) LVIDd: 4.3 cm (3.9 - 5.3) LVPWd: 1.2 cm (0.6 - 1.1) IVSs: 1.6 cm LVIDs: 3.4 cm LVPWs: 1.2 cm LA Diam: 3.6 cm (2.7 - 3.8) LAESV Index (A-L): 23.33 ml/m Ao Diam: 2.4 cm (2.0 - 3.7) AV Cusp: 1.7 cm (1.5 - 2.6) MV EXCURSION: 20.824 mm (> 18.000) MV EF SLOPE: 83 mm/s (70 - 150) EPSS: 1.2 cm MV E Saad: 0.65 m/s MV DecT: 241 ms MV A Saad: 0.92 m/s MV E/A Ratio: 0.70 RAP: 5.00 mmHg RVSP: 27.16 mmHg FINDINGS -------- Sinus rhythm. This was a technically adequate study. The left ventricular size is normal. There is borderline concentric left ventricular hypertrophy. Overall left ventricular systolic function is normal with, an EF between 55 - 60 %. The diastolic filling pattern is normal for the age of the patient 7.95. The right ventricle is normal in size. Normal LA size by volume 22+/-6 ml/m2. The right atrial size is normal. The aortic valve is trileaflet, and appears structurally normal. No aortic stenosis or regurgitation. The mitral valve is normal. Mild mitral regurgitation is present. The tricuspid valve appears structurally normal. Mild tricuspid regurgitation present. Right vent ricular systolic pressure is normal at < 35 mmHg. There is no pulmonic regurgitation present. The aortic root size is normal. There is no pericardial effusion. CONCLUSIONS -------- 1. There is borderline concentric left ventricular hypertrophy. 2. Overall left ventricular systolic function is normal with, an EF between 55 - 60 %. 3. Normal LA size by volume 22+/-6 ml/m2. 4. The aortic valve is trileaflet, and appears structurally normal. No aortic stenosis or regurgitati on. 5. Mild mitral regurgitation is present. 6. Mild tricuspid regurgitation present. 7. There is no pericardial effusion. [employer] SALES: Marva Villasenor RDCS
[2020-10-19 13:34] VITALS: BP 152/91; PULSE 64; RESP 16
--- NOTE | 2020-10-20 00:40 | P.HPIM ---
History of Present Illness H&P Date: 10/19/20 Chief Complaint: Chest pain History of presenting complaint: This is a 60-year-old patient of Dr. Rojas. 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 Chronic bilateral lower extremity pain and hand numbness and tingling. Optic migraines. Arthritis of the lower back and ankles. Large prostate. Patient comes in for elevated blood pressures. Anywhere from 225-170 systolic. Also has had some headache for a week. Patient does get very easily anxious. With elevated blood pressure also noticed some chest pain. No radiation. No dizziness or lightheadedness. No perspiration. Patient extremely anxious during the interview. Review of systems: GEN.: Very anxious EYES: None HEENT: None NECK: None RESPIRATORY: None CARDIOVASCULAR: As above GASTROINTESTINAL: None GENITOURINARY: None MUSCULOSKELETAL: Low back pain LYMPHATICS: None HEMATOLOGICAL: None PSYCHIATRY: None NEUROLOGICAL: None Past medical history to include: Smoker. Unemployed. . Physical examination: VITAL SIGNS: 97.9, 77, 18, 154/81, 96% room air GENERAL: BMI 26.6, sitting up, very anxious. EYES: Pupils equal. Conjunctiva normal. HEENT: External appearance of nose and ears normal, oral cavity grossly normal. NECK: JVD not raised; masses not palpable. HEART: First and second heart sounds are normal; no edema. LUNGS: Respiratory rate normal; clear to auscultation. ABDOMEN: Soft, nontender, liver spleen not palpable, no masses palpable. PSYCH: [Alert and oriented x3; mood and affect anxious l. NEUROLOGICAL: Cranial nerves grossly intact; no facial asymmetry, power and sensation grossly intact. LYMPHATICS: No lymph nodes palpable in the axilla and neck INVESTIGATIONS, reviewed in the clinical context: White count 11.8 hemoglobin 15 platelets 294 potassium 4.3 creatinine 0.94 Troponin I 3 negative EKG tracing personally reviewed by me-normal sinus rhythm 2-D echocardiogram-EF 55 5-60% Chest x-ray film personally reviewed by me-no acute Assessment: -Anterior chest wall pain associated with high blood pressure mainly appears to be more psychosomatic. Patient extremely anxious. Patient had a cardiac catheterization that was negative about a year ago. -Severe anxiety and depression. Patient does not want to take any medication he says he has some medication at home from his family doctor. -Chronic insomnia -Hyperlipidemia Plan: Cardiology was consulted. Added some diuretic. Home medications and resume. I did reassure the patient. 2-D echocardiogram as above. Past Medical History Past Medical History: Chest Pain / Angina, GERD/Reflux, Hearing Disorder / Deafness, Hyperlipidemia, Prostate Disorder, Vascular Disorder Additional Past Medical History / Comment(s): Severe aortic blockage below renal artery-has been seen at [facility], [facility] and [facility], chronic bilateral leg pain, bilateral hands/feet numbness and tingling, optic migraines, sepsis in 2014, 2 lesions in throat, arthritis in lower back and ankles, enlarged prostate, sepsis History of Any Multi-Drug Resistant Organisms: None Reported Past Surgical History: Cholecystectomy Additional Past Surgical History / Comment(s): Microlaryngoscopy 11-28-18,Colonoscopy, anal fissure repair, colonoscopy with benign polypectomy Past Anesthesia/Blood Transfusion Reactions: No Reported Reaction Additional Past Anesthesia/Blood Transfusion Reaction / Comment(s): states has experienced balance issues after anesthesia Past Psychological History: Depression Additional Psychological History / Comment(s): Pt resides with his spouse. 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 Smoking Status: Current every day smoker Past Alcohol Use History: None Reported Additional Past Alcohol Use History / Comment(s): Pt started smoking in 1973 and is a 1.5 ppd smoker Past Drug Use History: None Reported - Past Family History Mother Family Medical History: No Reported History Sister(s) Family Medical History: Cancer Additional Family Medical History / Comment(s): breast Father Family Medical History: Hyperlipidemia, Hypertension, Myocardial Infarction ([place]) Additional Family Medical History / Comment(s): cad Medications and Allergies Home Medications Medication Instructions Recorded Confirmed Type Aspirin EC [Ecotrin Low Dose] 81 mg PO HS 12/10/19 10/18/20 History Atorvastatin [Lipitor] 80 mg PO HS 10/18/20 10/18/20 History Nitroglycerin Sl Tabs [Nitrostat] 0.4 mg SUBLINGUAL Q5M PRN 10/18/20 10/18/20 History amLODIPine [Norvasc] 5 mg PO HS 10/18/20 10/18/20 History Lisinopril-Hctz 10-12.5 mg 1 tab PO BID #30 tab 10/19/20 Rx [Zestoretic 10-12.5] Allergies Allergy/AdvReac Type Severity Reaction Status Date / Time No Known Allergies Allergy Verified 10/18/20 20:29 Physical Exam Vitals: Vital Signs Temp Pulse Pulse Resp BP BP Pulse Ox 10/19/20 08:04 97.9 F 62 17 154/83 97 10/19/20 02:56 97.9 F 67 18 147/67 97 10/18/20 22:33 97.9 F 63 18 178/87 96 10/18/20 22:00 98.1 F 67 16 132/77 98 10/18/20 21:00 62 16 158/89 98 10/18/20 20:00 64 18 148/84 10/18/20 19:41 81 10/18/20 19:27 97.9 F 77 18 154/81 96 Intake and Output 10/18/20 10/19/20 10/19/20 22:59 06:59 14:59 Other: # Voids 2 Weight 81.647 kg Results CBC & Chem 7: 10/18/20 19:53 10/18/20 19:53 Labs: Abnormal Lab Results - Last 24 Hours (Table) 10/18/20 10/18/20 Range/Units 19:53 19:53 WBC 11.8 H (3.8-10.6) k/uL Lymphocytes # 4.9 H (1.0-4.8) k/uL Sodium 134 L (137-145) mmol/L Glucose 115 H (74-99) mg/dL Thrombosis Risk Factor Assmnt - Choose All That Apply Any of the Below Risk Factors Present?: Yes Each Factor Represents 1 point: Age 41-60 years, Obesity (BMI >25) Other Risk Factors: No Other congenital or acquired thrombophilia - If yes, enter type in comment: No Thrombosis Risk Factor Assessment Total Risk Factor Score: 2 Thrombosis Risk Factor Assessment Level: Low Risk
--- NOTE | 2020-10-20 00:43 | P.DS ---
Providers Date of admission: 10/18/20 20:54 Expected date of discharge: 10/19/20 Attending physician: Berry Dangelo Consults: 10/18/20 20:54 Consult Physician Routine Consulting Provider: [facility] Consult Reason/Comments: Chest pain Do you want consulting provider notified?: Yes Primary care physician: [facility] Course: Chief Complaint: Chest pain History of presenting complaint: This is a 60-year-old patient of Dr. Rojas. 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 Chronic bilateral lower extremity pain and hand numbness and tingling. Optic migraines. Arthritis of the lower back and ankles. Large prostate. Patient comes in for elevated blood pressures. Anywhere from 225-170 systolic. Also has had some headache for a week. Patient does get very easily anxious. With elevated blood pressure also noticed some chest pain. No radiation. No dizziness or lightheadedness. No perspiration. Patient extremely anxious during the interview. Patient symptoms are felt to be primarily psychosomatic. Some uncontrolled blood pressure. Medication adjusted. Seen by cardiology. Cleared. Patient refused to take any antidepressant anxiety medication. States he has some medications given by his family doctor which test does not recall the name of. Consultation: Dr. Gipson from cardiology Past medical history to include: Smoker. Unemployed. . Physical examination: VITAL SIGNS: 97.9, 64, 16, and 50-191, 97% room air GENERAL: BMI 26.6, sitting up, very anxious. EYES: Pupils equal. Conjunctiva normal. HEENT: External appearance of nose and ears normal, oral cavity grossly normal. NECK: JVD not raised; masses not palpable. HEART: First and second heart sounds are normal; no edema. LUNGS: Respiratory rate normal; clear to auscultation. ABDOMEN: Soft, nontender, liver spleen not palpable, no masses palpable. PSYCH: [Alert and oriented x3; mood and affect-very anxious. INVESTIGATIONS, reviewed in the clinical context: White count 11.8 hemoglobin 15 platelets 294 potassium 4.3 creatinine 0.94 Troponin I 3 negative EKG tracing personally reviewed by me-normal sinus rhythm 2-D echocardiogram-EF 55 5-60% Chest x-ray film personally reviewed by me-no acute Assessment: -Anterior chest wall pain associated with high blood pressure mainly appears to be more psychosomatic. Patient extremely anxious. Patient had a cardiac catheterization that was negative about a year ago. -Severe anxiety and depression. Patient does not want to take any medication he says he has some medication at home from his family doctor. -Chronic insomnia -Hyperlipidemia Disposition: Home Patient Condition at Discharge: Stable Plan - Discharge Summary New Discharge Prescriptions: New Lisinopril-Hctz 10-12.5 mg [Zestoretic 10-12.5] 1 tab PO BID #30 tab Continue Aspirin EC [Ecotrin Low Dose] 81 mg PO HS Nitroglycerin Sl Tabs [Nitrostat] 0.4 mg SUBLINGUAL Q5M PRN PRN Reason: CHEST PAIN amLODIPine [Norvasc] 5 mg PO HS Atorvastatin [Lipitor] 80 mg PO HS Discontinued Lisinopril [Prinivil] 10 mg PO DAILY Discharge Medication List Aspirin EC [Ecotrin Low Dose] 81 mg PO HS 12/10/19 [History] Atorvastatin [Lipitor] 80 mg PO HS 10/18/20 [History] Nitroglycerin Sl Tabs [Nitrostat] 0.4 mg SUBLINGUAL Q5M PRN 10/18/20 [History] amLODIPine [Norvasc] 5 mg PO HS 10/18/20 [History] Lisinopril-Hctz 10-12.5 mg [Zestoretic 10-12.5] 1 tab PO BID #30 tab 10/19/20 [Rx] Follow up Appointment(s)/Referral(s): Yaya Rojas DO [Primary Care Provider] - 1-2 days Patient Instructions/Handouts: Chest Pain (DC) Discharge Disposition: HOME SELF-CARE
== END 2020-10-19 13:50 | disposition home or self-care (01) ==
LOC: EC 19:27 → 1SOBS 20:54 → 6NMEDSUR 21:09
PROVIDERS: ADMIT Hospitalist; ATTEND Hospitalist
DX: R07.89 Other chest pain (principal); I10 Essential (primary) hypertension; F32.9 Major depressive disorder, single episode, unspecified; F41.9 Anxiety disorder, unspecified; F51.04 Psychophysiologic insomnia; E78.5 Hyperlipidemia, unspecified; H91.90 Unspecified hearing loss, unspecified ear; K21.9 Gastro-esophageal reflux disease without esophagitis; G89.29 Other chronic pain; M79.604 Pain in right leg; M79.605 Pain in left leg; R20.0 Anesthesia of skin; R20.2 Paresthesia of skin; M19.072 Primary osteoarthritis, left ankle and foot; M19.071 Primary osteoarthritis, right ankle and foot; N40.0 Benign prostatic hyperplasia without lower urinary tract symptoms; I25.10 Atherosclerotic heart disease of native coronary artery without angina pectoris; I73.9 Peripheral vascular disease, unspecified; R06.09 Other forms of dyspnea; M47.816 Spondylosis without myelopathy or radiculopathy, lumbar region; G43.B0 Ophthalmoplegic migraine, not intractable; F17.210 Nicotine dependence, cigarettes, uncomplicated; E66.9 Obesity, unspecified; Z68.26 Body mass index [BMI] 26.0-26.9, adult; Z79.899 Other long term (current) drug therapy; Z79.82 Long term (current) use of aspirin; Z90.49 Acquired absence of other specified parts of digestive tract; Z86.19 Personal history of other infectious and parasitic diseases; Z86.010 Personal history of colon polyps; Z56.0 Unemployment, unspecified; Z82.49 Family history of ischemic heart disease and other diseases of the circulatory system; Z80.3 Family history of malignant neoplasm of breast
CPT/HCPCS: 99285; 36415; 93005 ×2; 93306; 80053; 83735; 84484 ×2; 85025; 85610; 85730; 71046; G0378 ×2

== ENCOUNTER 2021-07-09 01:40 | Observation (INO) | payer BC ==
[2021-07-09 01:45] VITALS: TEMP 97.6
--- NOTE | 2021-07-09 02:38 | XR ---
EXAMINATION TYPE: XR chest 1V portable DATE OF EXAM: 07/09/2021 COMPARISON: 10/18/2020 HISTORY: Chest pain TECHNIQUE: Single view FINDINGS: Heart and mediastinum are normal. Lungs are clear. Diaphragm is normal. There are chest raz ds. Bony thorax appears normal. IMPRESSION: Normal chest. No change.
[2021-07-09 02:40] LABS: Basophils # (A) 0.1 k/uL (0-0.2); Basophils % (A) 1 %; Eosinophils # (A) 0.5 k/uL (0-0.7); Eosinophils % (A) 4 %; HCT 42.8 % (39.0-53.0); HGB 14.2 gm/dL (13.0-17.5); Lymphocytes # (A) 4.8 k/uL (1.0-4.8); Lymphocytes % (A) 41 %; MCH 32.5 pg (25.0-35.0); MCHC 33.1 g/dL (31.0-37.0); MCV 98.1 fL (80.0-100.0); Mean Platelet Volume 7.7; Monocytes # (A) 0.6 k/uL (0-1.0); Monocytes % (A) 5 %; Neutrophils # (A) 5.4 k/uL (1.3-7.7); Neutrophils % (A) 47 %; Platelet Count 273 k/uL (150-450); RBC 4.36 m/uL (4.30-5.90); RDW 13.5 % (11.5-15.5); WBC 11.6 k/uL (3.8-10.6)
[2021-07-09 02:48] LABS: INR 0.9 (<1.2); Partial Thromboplastin Time 26.4 sec (22.0-30.0); Prothrombin Time 9.7 sec (9.0-12.0)
[2021-07-09 02:57] LABS: Albumin 3.9 g/dL (3.5-5.0); Calcium 9.4 mg/dL (8.4-10.2); Magnesium 2.1 mg/dL (1.6-2.3); Potassium 4.4 mmol/L (3.5-5.1); Total Bilirubin 0.4 mg/dL (0.2-1.3); Total Protein 6.7 g/dL (6.3-8.2)
[2021-07-09 05:12] VITALS: RESP 18
[2021-07-09] MEDS ORDERED: MORPHINE SULFATE 4 MG/ML SYRINGE IV STA (05:20)
[2021-07-09] MEDS ORDERED: HYDROmorphone 1 MG/ML 1 ML SYRINGE IVP STA (06:52)
--- NOTE | 2021-07-09 08:06 | CT ---
EXAMINATION TYPE: CT angio thor/abd pel aorta DATE OF EXAM: 07/09/2021 COMPARISON: CTA aorta August 03, 2018 HISTORY: Lt arm pain, abd pain. Known severe aortic stenosis below renal arteries CT DLP: 1324 mGycm. Automated Exposure Control for Dose Reduction was Utilized. CONTRAST: CTA scan of the thorax, abdomen and pelvis is performed without and with IV Contrast, patient injecte d with 100 mL of Isovue 370. Aneurysm protocol with 3-D reconstructed images created and dependent wo rkmandy and reviewed. FINDINGS: Vascular: No suspicious hyperdense material to suggest intramural hematoma on noncontrast images. Pos tcontrast images demonstrate satisfactory enhancement of the central pulmonary arteries. There is nor mal three-vessel origin from the aortic arch with mild to moderate plaque but no significant stenosis . Descending thoracic aorta shows larger caliber versus ascending aorta. There is mild to moderate pe ripheral noncalcified plaque. Patent celiac artery and SMA without significant stenosis. There is early branching right renal arter y axial image 108. There is suspected significant focal stenosis at origin left renal artery axial im age 111 and coronal image 58 due to noncalcified focal plaque. There is redemonstration of completely occluded abdominal aorta just past renal arteries with small caliber distal abdominal aorta and comm on iliac arterial branch vessels. There is reconstitution due to collateral flow involving the purchasing intern al iliac arteries bilaterally and the right external iliac artery. There is reconstitution involving the distal left external iliac artery. Satisfactory blood flow in the left subclavian artery into the axillary artery without significant plaque or stenosis. Prominent collateral vessels in the perirect al region are noted. LUNGS: Mild emphysematous and pulmonary fibrotic changes. No suspicious focal consolidation. There i s no pleural effusion or pneumothorax seen. The tracheobronchial tree is patent. MEDIASTINUM: There are no greater than 1 cm hilar or mediastinal lymph nodes. No cardiomegaly or pe ricardial effusion is seen. LIVER/GB: Cholecystectomy clips. PANCREAS: No significant abnormality is seen. SPLEEN: No significant abnormality is seen. ADRENALS: No significant abnormality is seen. KIDNEYS: No significant abnormality is seen. BOWEL: No significant abnormality is seen. GENITAL ORGANS: Mildly enlarged prostate LYMPH NODES: No greater than 1cm abdominal or pelvic lymph nodes are appreciated. OSSEOUS STRUCTURES: Mild Multilevel spurring in the spine. OTHER: No significant additional abnormality is seen. IMPRESSION: 1. No significant plaque or stenosis in the left subclavian or visualized portion of the left axillar y artery. 2. 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 3. Note is made of significant stenosis at ostium or the origin of the left renal artery, correlate c linically for uncontrolled hypertension.
[2021-07-09] MEDS ORDERED: NITROGLYCERIN SL TABS 0.4 MG TAB SUBLINGUAL PRN (08:37)
--- NOTE | 2021-07-09 08:44 | ED ---
General Adult HPI - General Chief complaint: Extremity Problem,Nontraumatic Stated complaint: Left arm pain Time Seen by Provider: 07/09/21 02:20 Source: patient Mode of arrival: wheelchair - History of Present Illness Initial comments: This patient is 60-year-old man who presents with left upper extremity pain that he states is similar to the claudication pains he would have his bilateral lower extremities. I had come on tonight. It is worse if he tries to use arm. No relieving factors. -: hour(s) Location: left, upper extremity Quality: aching, dull Consistency: constant Improves with: none Worsens with: movement Associated Symptoms: denies other symptoms - Related Data Home Medications Medication Instructions Recorded Confirmed Atorvastatin [Lipitor] 80 mg PO HS 10/18/20 07/09/21 amLODIPine [Norvasc] 5 mg PO HS 10/18/20 07/09/21 ALPRAZolam [Xanax] 0.25 mg PO DAILY PRN 07/09/21 07/09/21 Aspirin 81 mg PO HS 07/09/21 07/09/21 Escitalopram [Lexapro] 15 mg PO HS 07/09/21 07/09/21 lisinopriL 20 mg PO HS 07/09/21 07/09/21 Previous Rx's Medication Instructions Recorded Nicotine 21Mg/24Hr Patch [Habitrol] 1 each TRANSDERM DAILY #14 patch 07/09/21 Rivaroxaban [Xarelto] 2.5 mg PO BID #60 tablet 07/09/21 Allergies Allergy/AdvReac Type Severity Reaction Status Date / Time No Known Allergies Allergy Verified 07/09/21 10:54 Review of Systems ROS Statement: Those systems with pertinent positive or pertinent negative responses have been documented in the HPI. ROS Other: All systems not noted in ROS Statement are negative. Constitutional: Denies: fever, chills, weakness Respiratory: Denies: cough, dyspnea Cardiovascular: Denies: chest pain, palpitations, edema, syncope Gastrointestinal: Denies: abdominal pain, nausea, vomiting, diarrhea, constipation Genitourinary: Denies: dysuria, hematuria Musculoskeletal: Denies: back pain Skin: Denies: rash Neurological: Denies: headache, weakness, numbness Past Medical History Past Medical History: Chest Pain / Angina, GERD/Reflux, Hearing Disorder / Deafness, Hyperlipidemia, Hypertension, Prostate Disorder, Vascular Disorder Additional Past Medical History / Comment(s): Severe aortic blockage below renal artery-has been seen at [facility], of and [facility], chronic bilateral leg pain, bilateral hands/feet numbness and tingling, optic migraines, sepsis in 2015, 2 lesions in throat, arthritis in lower back and ankles, enlarged prostate, sepsis History of Any Multi-Drug Resistant Organisms: None Reported Past Surgical History: Cholecystectomy Additional Past Surgical History / Comment(s): Microlaryngoscopy 11-28-18,Colonoscopy, anal fissure repair, colonoscopy with benign polypectomy Past Anesthesia/Blood Transfusion Reactions: No Reported Reaction Additional Past Anesthesia/Blood Transfusion Reaction / Comment(s): states has experienced balance issues after anesthesia Past Psychological History: Depression Smoking Status: Current every day smoker Past Alcohol Use History: None Reported Past Drug Use History: None Reported - Past Family History Mother Family Medical History: No Reported History Sister(s) Family Medical History: Cancer Additional Family Medical History / Comment(s): breast Father Family Medical History: Hyperlipidemia, Hypertension, Myocardial Infarction ([place]) Additional Family Medical History / Comment(s): cad General Exam General appearance: alert, in no apparent distress Head exam: Present: atraumatic, normocephalic Eye exam: Present: normal appearance. Absent: scleral icterus, conjunctival injection ENT exam: Present: normal oropharynx Neck exam: Present: normal inspection Respiratory exam: Present: normal lung sounds bilaterally. Absent: respiratory distress, wheezes, rales, rhonchi, stridor Cardiovascular Exam: Present: regular rate, normal rhythm, normal heart sounds. Absent: systolic murmur, diastolic murmur, rubs, gallop GI/Abdominal exam: Present: soft. Absent: distended, tenderness, guarding, rebound, rigid, mass Extremities exam: Present: normal inspection, normal capillary refill. Absent: pedal edema, calf tenderness Back exam: Present: normal inspection. Absent: CVA tenderness (R), CVA tenderness (L) Neurological exam: Present: alert Skin exam: Present: warm, dry, intact, normal color. Absent: rash Course Vital Signs 07/09/21 07/09/21 07/09/21 01:43 02:00 02:30 Temperature 97.6 F Pulse Rate 81 69 73 Respiratory 18 22 22 Rate Blood Pressure 128/77 134/81 112/72 O2 Sat by Pulse 96 99 99 Oximetry 07/09/21 07/09/21 07/09/21 05:08 08:00 09:00 Temperature Pulse Rate 67 67 70 Respiratory 18 18 18 Rate Blood Pressure 120/75 137/84 O2 Sat by Pulse 97 97 97 Oximetry 07/09/21 07/09/21 07/09/21 10:00 11:00 12:00 Temperature Pulse Rate Respiratory 18 18 18 Rate Blood Pressure O2 Sat by Pulse 97 97 97 Oximetry Medical Decision Making - Medical Decision Making This patient is 60-year-old man with known vasculopathy. Given the upper extremity pain but without any signs of limb ischemia will admit for cardiac r ule out. After the patient had been here and had nearly completed his workup she did have episode of abdominal pain, therefore computed tomography scan of abdomen obtained which does not show any definite change in his arterial circulation. Given the question of possible change in renal artery, we'll consult vascular surgery however patient's blood pressure normal, and there may not be true redu ction of flow. - Lab Data Result diagrams: 07/09/21 02:27 07/09/21 02:27 Lab Results 07/09/21 07/09/21 07/09/21 Range/Units 02:27 02:27 02:27 WBC 11.6 H (3.8-10.6) k/uL RBC 4.36 (4.30-5.90) m/uL Hgb 14.2 (13.0-17.5) gm/dL Hct 42.8 (39.0-53.0) % MCV 98.1 (80.0-100.0) fL MCH 32.5 (25.0-35.0) pg MCHC 33.1 (31.0-37.0) g/dL RDW 13.5 (11.5-15.5) % Plt Count 273 (150-450) k/uL MPV 7.7 Neutrophils % 47 % Lymphocytes % 41 % Monocytes % 5 % Eosinophils % 4 % Basophils % 1 % Neutrophils # 5.4 (1.3-7.7) k/uL Lymphocytes # 4.8 (1.0-4.8) k/uL Monocytes # 0.6 (0-1.0) k/uL Eosinophils # 0.5 (0-0.7) k/uL Basophils # 0.1 (0-0.2) k/uL PT 9.7 (9.0-12.0) sec INR 0.9 (<1.2) APTT 26.4 (22.0-30.0) sec Sodium 134 L (137-145) mmol/L Potassium 4.4 (3.5-5.1) mmol/L Chloride 105 (98-107) mmol/L Carbon Dioxide 20 L (22-30) mmol/L Anion Gap 9 mmol/L BUN 19 (9-20) mg/dL Creatinine 1.09 (0.66-1.25) mg/dL Est GFR (CKD-EPI)AfAm 85 (>60 ml/min/1.73 sqM) Est GFR (CKD-EPI)NonAf 73 (>60 ml/min/1.73 sqM) Glucose 97 (74-99) mg/dL Calcium 9.4 (8.4-10.2) mg/dL Magnesium 2.1 (1.6-2.3) mg/dL Total Bilirubin 0.4 (0.2-1.3) mg/dL AST 28 (17-59) U/L ALT 22 (4-49) U/L Alkaline Phosphatase 135 H (38-126) U/L Troponin I (0.000-0.034) ng/mL Total Protein 6.7 (6.3-8.2) g/dL Albumin 3.9 (3.5-5.0) g/dL Amylase 101 (30-110) U/L Lipase 162 (23-300) U/L 07/09/21 Range/Units 02:27 WBC (3.8-10.6) k/uL RBC (4.30-5.90) m/uL Hgb (13.0-17.5) gm/dL Hct (39.0-53.0) % MCV (80.0-100.0) fL MCH (25.0-35.0) pg MCHC (31.0-37.0) g/dL RDW (11.5-15.5) % Plt Count (150-450) k/uL MPV Neutrophils % % Lymphocytes % % Monocytes % % Eosinophils % % Basophils % % Neutrophils # (1.3-7.7) k/uL Lymphocytes # (1.0-4.8) k/uL Monocytes # (0-1.0) k/uL Eosinophils # (0-0.7) k/uL Basophils # (0-0.2) k/uL PT (9.0-12.0) sec INR (<1.2) APTT (22.0-30.0) sec Sodium (137-145) mmol/L Potassium (3.5-5.1) mmol/L Chloride (98-107) mmol/L Carbon Dioxide (22-30) mmol/L Anion Gap mmol/L BUN (9-20) mg/dL Creatinine (0.66-1.25) mg/dL Est GFR (CKD-EPI)AfAm (>60 ml/min/1.73 sqM) Est GFR (CKD-EPI)NonAf (>60 ml/min/1.73 sqM) Glucose (74-99) mg/dL Calcium (8.4-10.2) mg/dL Magnesium (1.6-2.3) mg/dL Total Bilirubin (0.2-1.3) mg/dL AST (17-59) U/L ALT (4-49) U/L Alkaline Phosphatase (38-126) U/L Troponin I <0.012 (0.000-0.034) ng/mL Total Protein (6.3-8.2) g/dL Albumin (3.5-5.0) g/dL Amylase (30-110) U/L Lipase (23-300) U/L Disposition
[2021-07-09 09:58] VITALS: BP 137/84; PULSE 70
[2021-07-09] MEDS ORDERED: CALCIUM CARBONATE 500 MG CHEWABLE PO PRN (10:20)
[2021-07-09] MEDS ORDERED: ALPRAZolam 0.25 MG TAB PO PRN (10:20)
[2021-07-09] MEDS ORDERED: MAG HYDROX/AL HYDROX/SIMETH 30 ML CUP PO PRN (10:20)
[2021-07-09] MEDS ORDERED: ACETAMINOPHEN TAB 325 MG TAB PO PRN (10:20)
[2021-07-09] MEDS ORDERED: NALOXONE 0.4 MG/ML 1 ML VIAL IV PRN (10:20)
[2021-07-09] MEDS ORDERED: ONDANSETRON 4 MG/2 ML VIAL IVP PRN (10:20)
[2021-07-09] MEDS ORDERED: LACTULOSE 20 GM/30 ML CUP PO PRN (10:20)
[2021-07-09] MEDS ORDERED: MAGNESIUM HYDROXIDE 2,400 MG/10 ML CUP PO PRN (10:20)
[2021-07-09] MEDS ORDERED: MELATONIN 3 MG TABLET PO PRN (10:20)
[2021-07-09] MEDS ORDERED: NICOTINE 21MG/24HR PATCH TRANSDERM SCH (10:30)
[2021-07-09] MEDS ORDERED: LISINOPRIL-HCTZ 10-12.5 MG 1 EACH TAB PO SCH (10:30)
--- NOTE | 2021-07-09 10:36 | P.HPIM ---
History of Present Illness H&P Date: 07/09/21 Chief Complaint: Left arm pain History of presenting complaint: This is a 60-year-old patient of Dr. Rojas. 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 Chronic bilateral lower extremity pain and hand numbness and tingling. Optic migraines. Arthritis of the lower back and ankles. Large prostate. Patient had a cardiac catheterization on November [address] Gipson. Showed mild obstructive disease, and chronically occluded outturned the infrarenal segment with good collaterals. Patient now presents with left arm hurting distal to the elbow yesterday morning described as hurting inside. Later on the pain when more proximally. Also went up to the shoulder and upper part of the lateral chest wall. No perspiration no dizziness or lightheadedness. Denied any excessive physical activity. Denied any local injury. Patient has continued to smoke. Review of systems: GEN.: None EYES: None HEENT: None NECK: None RESPIRATORY: None CARDIOVASCULAR: As above GASTROINTESTINAL: None GENITOURINARY: None MUSCULOSKELETAL: Low back pain LYMPHATICS: None HEMATOLOGICAL: None PSYCHIATRY: None NEUROLOGICAL: None Past medical history to include: GERD, decreased hearing, hyperlipidemia, hypertension, BPH, severe aortic blockage below the infrarenal artery, chronic bilateral pain, optic migraines, arthritis, large prostate Social history: Smoker 1.5 pack a day. 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 . Family history: I petition, hyperlipidemia, [place], CAD Physical examination: VITAL SIGNS: Afebrile, 70, 18, 1 37 x 84, 97% room air GENERAL: BMI 24.8, laying in bed, not in distress EYES: Pupils equal. Conjunctiva normal. HEENT: External appearance of nose and ears normal, oral cavity grossly normal. NECK: JVD not raised; masses not palpable. HEART: First and second heart sounds are normal; no edema. LUNGS: Respiratory rate normal; decreased breath sounds. ABDOMEN: Soft, nontender, liver spleen not palpable, no masses palpable. PSYCH: [Alert and oriented x3; mood and affect anxious l. NEUROLOGICAL: Cranial nerves grossly intact; no facial asymmetry, power and sensation grossly intact. LYMPHATICS: No lymph nodes palpable in the axilla and neck EXTREMITIES: Patient has a good radial pulse. Good capillary refill on the left side. INVESTIGATIONS, reviewed in the clinical context: WBC 11.6 hemoglobin 14.2 platelets 273 sodium 134 potassium 4.4 creatinine 1.09 Troponin I 2 negative Coronavirus [PCR]: Not detected Chest x-ray film personally reviewed by me-prominent paltry artery. No infiltrates. Thoracic aorta CT: Complete occlusion of the infrarenal abdominal aorta with a leg artery reconstitution from collaterals. Significant stenosis in the ostium of the origin of left renal artery. Assessment and plan: -Patient having pain in the left arm distally that it also went proximally. Discouraged be vascular in nature from proximal lesion. Consult vascular. Antiplatelets agent. Put the patient on prophylaxis doses of xarelto. -Left lateral chest wall pain. Rule out cardiac cause. Patient had a negative cardiac catheterization, reviewed in the ER. Doubt cardiac. Telemetry. Consult cardiology -Chronic insomnia Melatonin as needed -Hyperlipidemia Lipitor 80 mg daily at bedtime -Essential hypertension Zestoretic 07/06.5 one tablet twice daily, amlodipine 5 mg daily at bedtime -COPD, asymptomatic in a current smoker -Chronic nicotine dependence, cigarette smoker Nicotine patch Home medications resumed. Telemetry. Consultation to cardiology and vascular. Discussed with patient. Past Medical History Past Medical History: Chest Pain / Angina, GERD/Reflux, Hearing Disorder / Deafness, Hyperlipidemia, Hypertension, Prostate Disorder, Vascular Disorder Additional Past Medical History / Comment(s): Severe aortic blockage below renal artery-has been seen at [facility] and [facility], chronic bilateral leg pain, bilateral hands/feet numbness and tingling, optic migraines, sepsis in 2014, 2 lesions in throat, arthritis in lower back and ankles, enlarged prostate, sepsis History of Any Multi-Drug Resistant Organisms: None Reported Past Surgical History: Cholecystectomy Additional Past Surgical History / Comment(s): Microlaryngoscopy 319,Colonos copy, anal fissure repair, colonoscopy with benign polypectomy Past Anesthesia/Blood Transfusion Reactions: No Reported Reaction Additional Past Anesthesia/Blood Transfusion Reaction / Comment(s): states has experienced balance issues after anesthesia Past Psychological History: Depression Smoking Status: Current every day smoker Past Alcohol Use History: None Reported Past Drug Use History: None Reported - Past Family History Mother Family Medical History: No Reported History Sister(s) Family Medical History: Cancer Additional Family Medical History / Comment(s): breast Father Family Medical History: Hyperlipidemia, Hypertension, Myocardial Infarction ([place]) Additional Family Medical History / Comment(s): cad Medications and Allergies Home Medications Medication Instructions Recorded Confirmed Type Aspirin EC [Ecotrin Low Dose] 81 mg PO HS 12/10/19 10/18/20 History Atorvastatin [Lipitor] 80 mg PO HS 10/18/20 10/18/20 History Nitroglycerin Sl Tabs [Nitrostat] 0.4 mg SUBLINGUAL Q5M PRN 10/18/20 10/18/20 History amLODIPine [Norvasc] 5 mg PO HS 10/18/20 10/18/20 History Lisinopril-Hctz 10-12.5 mg 1 tab PO BID #30 tab 10/19/20 Rx [Zestoretic 10-12.5] Allergies Allergy/AdvReac Type Severity Reaction Status Date / Time No Known Allergies Allergy Verified 07/09/21 01:45 Physical Exam Vitals: Vital Signs Temp Pulse Resp BP Pulse Ox 07/09/21 05:08 67 18 120/75 97 07/09/21 02:30 73 22 112/72 99 07/09/21 02:00 69 22 134/81 99 07/09/21 01:43 97.6 F 81 18 128/77 96 Intake and Output 07/08/21 07/09/21 07/09/21 22:59 06:59 14:59 Other: Weight 76.204 kg Results CBC & Chem 7: 07/09/21 02:27 07/09/21 02:27 Labs: Abnormal Lab Results - Last 24 Hours (Table) 07/09/21 07/09/21 Range/Units 02:27 02:27 WBC 11.6 H (3.8-10.6) k/uL Sodium 134 L (137-145) mmol/L Carbon Dioxide 20 L (22-30) mmol/L Alkaline Phosphatase 135 H (38-126) U/L
[2021-07-09] MEDS ORDERED: RIVAROXABAN 2.5 MG TABLET PO SCH (10:45)
--- NOTE | 2021-07-09 10:47 | P.CRDCN ---
History of Present Illness History of present illness: HISTORY OF PRESENTING ILLNESS This is a pleasant 60-year-old male past medical history significant for mild coronary artery disease by cardiac catheterization in November 2019, peripheral vascular disease with occluded aorta followed at [facility], chronic tobacco use, hypertension, dyslipidemia. He follows in the office with Dr. Gipson. We have been asked to see in consultation for left arm pain. Patient is seen and examined in the emergency department. Patient presents to emergency department with complaints of left arm pain that started yesterday morning. He denies any chest pain, shortness of breath, lightheadedness, dizziness, palpitations, symptoms of orthopnea or PND. His left arm pain does hurt with movement and palpation. He denies any specific injury. On admission blood pressure 112/72, heart rate 73, afebrile, maintaining oxygen saturations on room air. He continues to smoke cigarettes 1.5PPD. DIAGNOSTICS EKG reveals sinus rhythm, reversal of arm leads noted, heart rate 70, no significant ST-T wave abnormalities. Most recent echocardiogram 09/2020 revealed EF of 5560 percent, mild mitral regurgitation, mild tricuspid regurgitation. Thoracic aorta CT revealed no significant plaque or stenosis the left subclavian or visualized portion of the left axillary artery. We demonstrated a known complete occlusion of the infrarenal abdominal aorta and iliac artery reconstitution from collaterals vessels. Significant stenosis at ostium or origin of the left renal artery. Cardiac catheterization was performed 12/12/2019 due to abnormal stress test. This revealed mild obstructive disease involving the LAD and RCA. chronic occluded Aorta and infrarenal segment with good collaterals. Chest xray no acute cardiopulmonary process. Laboratory reviewed, troponin negative 2, sodium 134, potassium 4.4, BUN 19, serum creatinine 1.0, magnesium 2.1, COVID-19 PCR negative, WBC 11.6, hemoglobin 14.2, plates to 273 Current cardiac medications include aspirin 81 mg daily, atorvastatin 80 mg nightly, lisinoprilhydrochlorothiazide 1012 0.5 mg twice a day, amlodipine 5 mg nightly, when necessary nitroglycerin REVIEW OF SYSTEMS At the time of my exam: CONSTITUTIONAL: Denies fever or chills. CARDIOVASCULAR: Denies chest pain, shortness of breath, orthopnea, PND or palpitations. RESPIRATORY: Denies cough. GASTROINTESTINAL: Denies abdominal pain, diarrhea, constipation, nausea or vomiting. MUSCULOSKELETAL: +left arm pain NEUROLOGIC: Denies numbness, tingling, headacbe or weakness. ENDOCRINE: Denies fatigue, weight change, polydipsia or polyurina. GENITOURINARY: Denies burning, hematuria or urgency with micturation. HEMATOLOGIC: Denies history of anemia or bleeding. PHYSICAL EXAMINATION Blood pressure 137/84, heart rate 70, afebrile, did not saturations on room air CONSTITUTIONAL: No apparent distress. HEENT: Head is normocephalic. Pupils are equal, round. Sclerae anicteric. Mucous membranes of the mouth are moist. No JVD. No carotid bruit. CHEST EXAMINATION: Lungs are clear to auscultation. No chest wall tenderness is noted on palpation or with deep breathing. HEART EXAMINATION: Regular rate and rhythm. S1, S2 heard.Systolic ejection murmur at apex ABDOMEN: Soft, nontender. Positive bowel sounds. EXTREMITIES: 2+ peripheral pulses, no lower extremity edema and no calf tenderness. NEUROLOGIC EXAMINATION: Patient is awake, alert and oriented x3. ASSESSMENT Left arm pain, does not appear to be cardiac etiology. Mild nonobstructive coronary artery disease Peripheral vascular disease Chronically occluded aorta Hypertension Dyslipidemia Chronic nicotine dependence PLAN From cardiology perspective, patient's left arm pain does not appear to be cardiac in etiology. Troponins have been negative 2. No evidence of ischemia on EKG. Agree with vascular consult. No further cardiac workup at this time. Continue home cardiac medications. We will follow the patient as needed. Please reach out with any further questions or concerns. Nurse Practitioner note has been reviewed, I agree with a documented findings and plan of care. Patient was seen and examined. Past Medical History Past Medical History: Chest Pain / Angina, GERD/Reflux, Hearing Disorder / Deafness, Hyperlipidemia, Hypertension, Prostate Disorder, Vascular Disorder Additional Past Medical History / Comment(s): Severe aortic blockage below renal artery-has been seen at [facility], [facility] and [facility], chronic bilateral leg pain, bilateral hands/feet numbness and tingling, optic migraines, sepsis in 2015, 2 lesions in throat, arthritis in lower back and ankles, enlarged prosta te, sepsis History of Any Multi-Drug Resistant Organisms: None Reported Past Surgical History: Cholecystectomy Additional Past Surgical History / Comment(s): Microlaryngoscopy 11-28-18,Colonoscopy, anal fissure repair, colonoscopy with benign polypectomy Past Anesthesia/Blood Transfusion Reactions: No Reported Reaction Additional Past Anesthesia/Blood Transfusion Reaction / Comment(s): states has experienced balance issues after anesthesia Past Psychological History: Depression Smoking Status: Current every day smoker Past Alcohol Use History: None Reported Past Drug Use History: None Reported - Past Family History Mother Family Medical History: No Reported History Sister(s) Family Medical History: Cancer Additional Family Medical History / Comment(s): breast Father Family Medical History: Hyperlipidemia, Hypertension, Myocardial Infarction ([place]) Additional Family Medical History / Comment(s): cad Medications and Allergies Home Medications Medication Instructions Recorded Confirmed Type Aspirin EC [Ecotrin Low Dose] 81 mg PO HS 12/10/19 10/18/20 History Atorvastatin [Lipitor] 80 mg PO HS 10/18/20 10/18/20 History Nitroglycerin Sl Tabs [Nitrostat] 0.4 mg SUBLINGUAL Q5M PRN 10/18/20 10/18/20 History amLODIPine [Norvasc] 5 mg PO HS 10/18/20 10/18/20 History Lisinopril-Hctz 10-12.5 mg 1 tab PO BID #30 tab 10/19/20 Rx [Zestoretic 10-12.5] Allergies Allergy/AdvReac Type Severity Reaction Status Date / Time No Known Allergies Allergy Verified 07/09/21 01:45 Physical Exam Vitals: Vital Signs Temp Pulse Resp BP Pulse Ox 07/09/21 09:00 70 18 137/84 97 07/09/21 08:00 67 18 97 07/09/21 05:08 67 18 120/75 97 07/09/21 02:30 73 22 112/72 99 07/09/21 02:00 69 22 134/81 99 07/09/21 01:43 97.6 F 81 18 128/77 96 Intake and Output 07/08/21 07/09/21 07/09/21 22:59 06:59 14:59 Other: Weight 76.204 kg Results 07/09/21 02:27 07/09/21 02:27 Cardiac Enzymes 07/09/21 07/09/21 07/09/21 Range/Units 02:27 02:27 09:37 AST 28 (17-59) U/L Troponin I <0.012 <0.012 (0.000-0.034) ng/mL Coagulation 07/09/21 Range/Units 02:27 PT 9.7 (9.0-12.0) sec APTT 26.4 (22.0-30.0) sec CBC 07/09/21 Range/Units 02:27 WBC 11.6 H (3.8-10.6) k/uL RBC 4.36 (4.30-5.90) m/uL Hgb 14.2 (13.0-17.5) gm/dL Hct 42.8 (39.0-53.0) % Plt Count 273 (150-450) k/uL Comprehensive Metabolic Panel 07/09/21 Range/Units 02:27 Sodium 134 L (137-145) mmol/L Potassium 4.4 (3.5-5.1) mmol/L Chloride 105 (98-107) mmol/L Carbon Dioxide 20 L (22-30) mmol/L BUN 19 (9-20) mg/dL Creatinine 1.09 (0.66-1.25) mg/dL Glucose 97 (74-99) mg/dL Calcium 9.4 (8.4-10.2) mg/dL AST 28 (17-59) U/L ALT 22 (4-49) U/L Alkaline Phosphatase 135 H (38-126) U/L Total Protein 6.7 (6.3-8.2) g/dL Albumin 3.9 (3.5-5.0) g/dL Current Medications Generic Name Dose Route Start Last Admin Trade Name Freq PRN Reason Stop Dose Admin Acetaminophen 650 mg 07/09/21 10:20 Acetaminophen Tab 325 Mg Tab PO Q6HR PRN Mild Pain or Fever > 100.5 Al Hydroxide/Mg Hydroxide 15 ml 07/09/21 10:20 Mag Hydrox/Al Hydrox/Simeth 30 Ml Cup PO Q6HR PRN Indigestion Alprazolam 0.25 mg 07/09/21 10:20 Alprazolam 0.25 Mg Tab PO Q6HR PRN Anxiety Amlodipine Besylate 5 mg 07/09/21 21:00 Amlodipine 5 Mg Tab PO HS MICHAEL Aspirin 81 mg 07/09/21 21:00 Aspirin 81 Mg PO HS MICHAEL Atorvastatin Calcium 80 mg 07/09/21 21:00 Atorvastatin 80 Mg Tab PO HS MICHAEL Calcium Carbonate/Glycine 1,000 mg 07/09/21 10:20 Calcium Carbonate 500 Mg Chewable PO Q4HR PRN Dyspepsia Lisinopril/HCTZ 1 each 07/09/21 10:30 Lisinopril-Hctz 10-12.5 Mg 1 Each Tab PO BID [facility] Lactulose 20 gm 07/09/21 10:20 Lactulose 20 Gm/30 Ml Cup PO DAILY PRN Constipation Magnesium Hydroxide 2,400 mg 07/09/21 10:20 Magnesium Hydroxide 2,400 Mg/10 Ml Cup PO DAILY PRN Constipation Melatonin 3 mg 07/09/21 10:20 Melatonin 3 Mg Tablet PO HS PRN Insomnia Naloxone HCl 0.2 mg 07/09/21 10:20 Naloxone 0.4 Mg/Ml 1 Ml Vial IV Q2M PRN Opioid Reversal Nicotine 1 patch 07/09/21 10:30 Nicotine 21mg/24hr Patch TRANSDERM DAILY [facility] Nitroglycerin 0.4 mg 07/09/21 08:37 Nitroglycerin Sl Tabs 0.4 Mg Tab SUBLINGUAL Q5M PRN Chest Pain Ondansetron HCl 4 mg 07/09/21 10:20 Ondansetron 4 Mg/2 Ml Vial IVP Q8HR PRN Nausea And Vomiting Rivaroxaban 2.5 mg 07/09/21 10:45 Rivaroxaban 2.5 Mg Tablet PO BID [facility] Protocol Intake and Output 07/08/21 07/09/21 07/09/21 22:59 06:59 14:59 Other: Weight 76.204 kg 07/09/21 02:27 07/09/21 02:27
--- NOTE | 2021-07-09 12:31 | P.GSCN ---
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 Colon.. Chronic bilateral lower extremity pain and hand numbness and tingling. History of herniated disks in the neck and back. He presented to the emergency department with complaints of left upper extremity pain. States the pain began in his forearm and seemed to radiate up into his shoulder. States that the pain was severe and sharp. He is able to move the left upper extremity including his fingers. States the pain has improved some with pain medication. Blood pressures have been stable. Left upper extremity blood pressure 123/75 right upper extremity BP118/81. Patient is denying any chest pain, shortness of breath, abdominal pain, nausea, or vomiting. Review of Systems A 14 point review of systems was completed all pertinent positives and negatives as stated in the HPI. Past Medical History Past Medical History: Chest Pain / Angina, GERD/Reflux, Hearing Disorder / Deafness, Hyperlipidemia, Hypertension, Prostate Disorder, Vascular Disorder Additional Past Medical History / Comment(s): Severe aortic blockage below renal artery-has been seen at [facility], [facility] and [facility], chronic bilateral leg pain, bilateral hands/feet numbness and tingling, optic migraines, sepsis in 2015, 2 lesions in throat, arthritis in lower back and ankles, enlarged prostate, sepsis History of Any Multi-Drug Resistant Organisms: None Reported Past Surgical History: Cholecystectomy Additional Past Surgical History / Comment(s): Microlaryngoscopy 11-28-18,Colono scopy, anal fissure repair, colonoscopy with benign polypectomy Past Anesthesia/Blood Transfusion Reactions: No Reported Reaction Additional Past Anesthesia/Blood Transfusion Reaction / Comm: states has experienced balance issues after anesthesia Past Psychological History: Depression Smoking Status: Current every day smoker Past Alcohol Use History: None Reported Past Drug Use History: None Reported - Past Family History Mother Family Medical History: No Reported History Sister(s) Family Medical History: Cancer Additional Family Medical History / Comment(s): breast Father Family Medical History: Hyperlipidemia, Hypertension, Myocardial Infarction ([place]) Additional Family Medical History / Comment(s): cad Medications and Allergies Home Medications Medication Instructions Recorded Confirmed Type Atorvastatin [Lipitor] 80 mg PO HS 10/18/20 07/09/21 History amLODIPine [Norvasc] 5 mg PO HS 10/18/20 07/09/21 History ALPRAZolam [Xanax] 0.25 mg PO DAILY PRN 07/09/21 07/09/21 History Aspirin 81 mg PO HS 07/09/21 07/09/21 History Escitalopram [Lexapro] 15 mg PO HS 07/09/21 07/09/21 History lisinopriL 20 mg PO HS 07/09/21 07/09/21 History Allergies Allergy/AdvReac Type Severity Reaction Status Date / Time No Known Allergies Allergy Verified 07/09/21 10:54 Surgical - Exam Vital Signs Temp Pulse Resp BP Pulse Ox 97.6 F 81 18 128/77 96 07/09/21 01:43 07/09/21 01:43 07/09/21 01:43 07/09/21 01:43 07/09/21 01:43 General appearance: The patient is alert, oriented, appears in no acute distress. HET: Head is normocephalic and atraumatic. Neck: Supple without lymphadenopathy. Trachea midline. Heart: S1 S2. Regular rate and rhythm. Lungs: Diminished. Abdomen: Soft, nontender, nondistended. Extremities: Normal skin color and turgor. Left upper extremity with full range of motion, warm to the touch, good capillary refill with +2 bounding palpable radial pulse. Neurological: No focal deficits. Strength and sensation are grossly intact. Results - Labs 07/09/21 02:27 07/09/21 02:27 Abnormal Lab Results - Last 24 Hours (Table) 07/09/21 07/09/21 Range/Units 02:27 02:27 WBC 11.6 H (3.8-10.6) k/uL Sodium 134 L (137-145) mmol/L Carbon Dioxide 20 L (22-30) mmol/L Alkaline Phosphatase 135 H (38-126) U/L Diabetes panel 07/09/21 Range/Units 02:27 Sodium 134 L (137-145) mmol/L Potassium 4.4 (3.5-5.1) mmol/L Chloride 105 (98-107) mmol/L Carbon Dioxide 20 L (22-30) mmol/L BUN 19 (9-20) mg/dL Creatinine 1.09 (0.66-1.25) mg/dL Glucose 97 (74-99) mg/dL Calcium 9.4 (8.4-10.2) mg/dL AST 28 (17-59) U/L ALT 22 (4-49) U/L Alkaline Phosphatase 135 H (38-126) U/L Total Protein 6.7 (6.3-8.2) g/dL Albumin 3.9 (3.5-5.0) g/dL Calcium panel 07/09/21 Range/Units 02:27 Calcium 9.4 (8.4-10.2) mg/dL Albumin 3.9 (3.5-5.0) g/dL Pituitary panel 07/09/21 Range/Units 02:27 Sodium 134 L (137-145) mmol/L Potassium 4.4 (3.5-5.1) mmol/L Chloride 105 (98-107) mmol/L Carbon Dioxide 20 L (22-30) mmol/L BUN 19 (9-20) mg/dL Creatinine 1.09 (0.66-1.25) mg/dL Glucose 97 (74-99) mg/dL Calcium 9.4 (8.4-10.2) mg/dL Adrenal panel 07/09/21 Range/Units 02:27 Sodium 134 L (137-145) mmol/L Potassium 4.4 (3.5-5.1) mmol/L Chloride 105 (98-107) mmol/L Carbon Dioxide 20 L (22-30) mmol/L BUN 19 (9-20) mg/dL Creatinine 1.09 (0.66-1.25) mg/dL Glucose 97 (74-99) mg/dL Calcium 9.4 (8.4-10.2) mg/dL Total Bilirubin 0.4 (0.2-1.3) mg/dL AST 28 (17-59) U/L ALT 22 (4-49) U/L Alkaline Phosphatase 135 H (38-126) U/L Total Protein 6.7 (6.3-8.2) g/dL Albumin 3.9 (3.5-5.0) g/dL - Imaging Comments: CT angiogram of thoracic abdomen and pelvic aorta: No significant plaque or stenosis in the left subclavian artery visualized portion of the left axillary artery. Redemonstration of known complete occlusion of the infrarenal abdominal aorta with iliac artery reconstitution from collateral vessels. Note is made of significant stenosis at ostium or the origin of the left renal artery, relate clinically for uncontrolled hypertension. Assessment and Plan Assessment: 1. Left upper extremity pain 2. History of severe aortic blockage below the renal artery 3. History of cervical herniated discs Plan: Thoracic aorta CT reviewed by Dr. Martell. There is no evidence of any arterial occlusion that could be causing the left upper extremity pain. Possible pain may be localized more in the shoulder or coming from patient's history of cervical herniated disc. Patient has good bounding palpable left radial pulse. He has good range of motion of his fingers hand and upper extremity. There is no indication for any vascular surgical intervention. Patient to follow-up with [facility] vascular surgeon regarding his known aortic stenosis. Thank you for this consultation, and allowing us take part in the plan of care of your patient during his hospital stay. The impression and plan of care has been dictated as directed. Dr. Martell I performed a history and examination of this patient, discussed the same with the dictator. I agree with the dictator's note ,documented as a scribe. Any additional findings or plans will be noted.
--- NOTE | 2021-07-09 17:37 | P.DS ---
Providers Date of admission: 07/09/21 08:39 Expected date of discharge: 07/09/21 Attending physician: Berry Dangelo Consults: 07/09/21 08:37 Consult Physician Routine Consulting Provider: Elijah Martinez Consult Reason/Comments: left arm Do you want consulting provider notified?: Yes 07/09/21 08:46 Consult Physician Routine Consulting Provider: Tyshawn Edmond Consult Reason/Comments: Possible renal artery stenosis Do you want consulting provider notified?: Yes Primary care physician: [facility] Course: Chief Complaint: Left arm pain History of presenting complaint: This is a 60-year-old patient of Dr. Rojas. 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 Chronic bilateral lower extremity pain and hand numbness and tingling. Optic migraines. Arthritis of the lower back and ankles. Large prostate. Patient had a cardiac catheterization on November [address] Gipson. Showed mild obstructive disease, and chronically occluded outturned the infrarenal segment with good collaterals. Patient now presents with left arm hurting distal to the elbow yesterday morning described as hurting inside. Later on the pain when more proximally. Also went up to the shoulder and upper part of the lateral chest wall. No perspiration no dizziness or lightheadedness. Denied any excessive physical activity. Denied any local injury. Patient has continued to smoke. Today the care was discussed with Dr. DAYTON Conde. Patient had a negative cardiac catheterization or a year ago. [place] to unlikely cardiac. FOR discharge. Also discussed with Dr. Martell from vascular. Patient to follow-up with his own vascular surgeon. Nicotine patch. Late in the day did call the patient at home to deliver about picking up the prescription for xarelto given his severe PAD. Discussion and discharge planning more than 35 minutes Consultation: Dr. DAYTON Conde from cardiology His own vascular surgeon Past medical history to include: GERD, decreased hearing, hyperlipidemia, hypertension, BPH, severe aortic blockage below the infrarenal artery, chronic bilateral pain, optic migraines, arthritis, large prostate Social history: Smoker 1.5 pack a day. 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 . Family history: I petition, hyperlipidemia, [place], CAD Physical examination: VITAL SIGNS: 97.6, 70, 18, 1 37/94, 97% room air GENERAL: BMI 24.8, laying in bed, not in distress EYES: Pupils equal. Conjunctiva normal. HEENT: External appearance of nose and ears normal, oral cavity grossly normal. NECK: JVD not raised; masses not palpable. HEART: First and second heart sounds are normal; no edema. LUNGS: Respiratory rate normal; decreased breath sounds. ABDOMEN: Soft, nontender, liver spleen not palpable, no masses palpable. PSYCH: [Alert and oriented x3; mood and affect anxious l. NEUROLOGICAL: Cranial nerves grossly intact; no facial asymmetry, power and sensation grossly intact. LYMPHATICS: No lymph nodes palpable in the axilla and neck EXTREMITIES: Patient has a good radial pulse. Good capillary refill on the left side. INVESTIGATIONS, reviewed in the clinical context: WBC 11.6 hemoglobin 14.2 platelets 273 sodium 134 potassium 4.4 creatinine 1.09 Troponin I 2 negative Coronavirus [PCR]: Not detected Chest x-ray film personally reviewed by me-prominent paltry artery. No infiltrates. Thoracic aorta CT: Complete occlusion of the infrarenal abdominal aorta with a leg artery reconstitution from collaterals. Significant stenosis in the ostium of the origin of left renal artery. Assessment and plan: -Patient having pain in the left arm distally that it also went proximally. Vascular cause cannot be ruled out. Seen by vascular surgery. Patient to follow-up with his own vascular surgeon. Aspirin. 0-2.5 mg by mouth twice a day -Left lateral chest wall pain. Rule out cardiac cause. Patient had a negative cardiac catheterization, reviewed in the ER. Doubt cardiac. Patient to follow-up discouraging. No further workup here -Chronic insomnia Melatonin as needed -Hyperlipidemia Lipitor 80 mg daily at bedtime -Essential hypertension Zestoretic 1012.5 one tablet twice daily, amlodipine 5 mg daily at bedtime -COPD, asymptomatic in a current smoker -Chronic nicotine dependence, cigarette smoker Nicotine patch Disposition: Home Plan - Discharge Summary New Discharge Prescriptions: No Action amLODIPine [Norvasc] 5 mg PO HS Atorvastatin [Lipitor] 80 mg PO HS Aspirin 81 mg PO HS Escitalopram [Lexapro] 15 mg PO HS ALPRAZolam [Xanax] 0.25 mg PO DAILY PRN PRN Reason: Anxiety lisinopriL 20 mg PO HS Discharge Medication List Atorvastatin [Lipitor] 80 mg PO HS 10/18/20 [History] amLODIPine [Norvasc] 5 mg PO HS 10/18/20 [History] ALPRAZolam [Xanax] 0.25 mg PO DAILY PRN 07/09/21 [History] Aspirin 81 mg PO HS 07/09/21 [History] Escitalopram [Lexapro] 15 mg PO HS 07/09/21 [History] lisinopriL 20 mg PO HS 07/09/21 [History] Follow up Appointment(s)/Referral(s): Yaya Rojas DO [Primary Care Provider] - 1-2 days Mahad Irvin MD [STAFF PHYSICIAN] - 1 Week Tyshawn Edmond DO [Doctor of Osteopathic Medicine] - 1 Week Patient Instructions/Handouts: Arm Pain (ED) Discharge Disposition: HOME SELF-CARE
[2021-07-09] MEDS ORDERED: amLODIPine 5 MG TAB PO SCH (21:00)
[2021-07-09] MEDS ORDERED: ATORVASTATIN 80 MG TAB PO SCH (21:00)
[2021-07-09] MEDS ORDERED: ASPIRIN 81 MG PO SCH (21:00)
[2021-07-10] MEDS ORDERED: ASPIRIN 325 MG TAB PO SCH (09:00)
== END 2021-07-09 13:35 | disposition home or self-care (01) ==
LOC: EC 01:40 → 6NMEDSUR 08:39
PROVIDERS: ADMIT Hospitalist; ATTEND Hospitalist
DX: M79.602 Pain in left arm (principal); I73.9 Peripheral vascular disease, unspecified; I74.09 Other arterial embolism and thrombosis of abdominal aorta; I70.1 Atherosclerosis of renal artery; I25.10 Atherosclerotic heart disease of native coronary artery without angina pectoris; E78.5 Hyperlipidemia, unspecified; K21.9 Gastro-esophageal reflux disease without esophagitis; N40.0 Benign prostatic hyperplasia without lower urinary tract symptoms; M47.816 Spondylosis without myelopathy or radiculopathy, lumbar region; G43.809 Other migraine, not intractable, without status migrainosus; I10 Essential (primary) hypertension; M50.20 Other cervical disc displacement, unspecified cervical region; I08.1 Rheumatic disorders of both mitral and tricuspid valves; F17.210 Nicotine dependence, cigarettes, uncomplicated; M19.072 Primary osteoarthritis, left ankle and foot; M19.071 Primary osteoarthritis, right ankle and foot; G43.B0 Ophthalmoplegic migraine, not intractable; J44.9 Chronic obstructive pulmonary disease, unspecified; F32.9 Major depressive disorder, single episode, unspecified; H91.90 Unspecified hearing loss, unspecified ear; R07.89 Other chest pain; G89.29 Other chronic pain; M79.604 Pain in right leg; M79.605 Pain in left leg; R20.0 Anesthesia of skin; R20.2 Paresthesia of skin; F51.04 Psychophysiologic insomnia; Z20.822 Contact with and (suspected) exposure to COVID-19; Z79.82 Long term (current) use of aspirin; Z79.899 Other long term (current) drug therapy; Z79.01 Long term (current) use of anticoagulants; Z90.49 Acquired absence of other specified parts of digestive tract; Z86.19 Personal history of other infectious and parasitic diseases; Z86.010 Personal history of colon polyps; Z98.890 Other specified postprocedural states; Z80.3 Family history of malignant neoplasm of breast; Z82.49 Family history of ischemic heart disease and other diseases of the circulatory system; Z83.49 Family history of other endocrine, nutritional and metabolic diseases
CPT/HCPCS: 96374; 96375; 99285; 36415; 93005; 80053; 82150; 83690; 83735; 84484; 85025; 85610; 85730; 87635; 71045; 71275; 74174; G0378; S4990; J2270; J1170; Q9967

== ENCOUNTER 2024-12-03 13:58 | Emergency (ER) | payer BC, MEDICARE ==
[2024-12-03 14:19] VITALS: RESP 18
[2024-12-03 15:14] LABS: Basophils % (A) 0 %; Eosinophils # (A) 0.2 k/uL (0-0.7); Eosinophils % (A) 2 %; HCT 44.5 % (39.0-53.0); HGB 14.6 gm/dL (13.0-17.5); Lymphocytes # (A) 2.7 k/uL (1.0-4.8); Lymphocytes % (A) 31 %; MCH 31.7 pg (25.0-35.0); MCHC 32.9 g/dL (31.0-37.0); MCV 96.4 fL (80.0-100.0); Mean Platelet Volume 7.1; Monocytes # (A) 0.5 k/uL (0-1.0); Monocytes % (A) 6 %; Neutrophils % (A) 58 %; Platelet Count 305 k/uL (150-450); RBC 4.62 m/uL (4.30-5.90); RDW 14.1 % (11.5-15.5); WBC 8.7 k/uL (3.8-10.6)
[2024-12-03 15:28] LABS: INR 0.9 (<1.2); Partial Thromboplastin Time 25.2 sec (22.0-30.0); Prothrombin Time 10.2 sec (10.0-12.5)
--- NOTE | 2024-12-03 15:28 | XR ---
EXAMINATION TYPE: XR chest 2V DATE OF EXAM: 12/03/2024 3:20 PM COMPARISON: Chest radiographs from 07/09/2021 CLINICAL INDICATION: Male, 64 years old with history of altered mental status; TECHNIQUE: XR chest 2V Frontal and lateral views of the chest. FINDINGS: Lungs/Pleura: There is no evidence of pleural effusion, focal consolidation, or pneumothorax. Pulmonary vascularity: Unremarkable. Heart/mediastinum: Cardiomediastinal silhouette is unremarkable. Musculoskeletal: No acute osseous pathology. IMPRESSION: No acute cardiopulmonary disease/process. [facility], , 12/03/2024 3:26 PM
[2024-12-03 15:29] LABS: ALT 42 U/L (4-49); AST 37 U/L (17-59); African American GFR (CKD) 90 (>60 ml/min/1.73 sqM); Albumin 4.4 g/dL (3.5-5.0); Alkaline Phosphatase 117 U/L (38-126); Anion Gap 8 mmol/L; Blood Urea Nitrogen 15 mg/dL (9-20); Calcium 9.3 mg/dL (8.4-10.2); Carbon Dioxide 24 mmol/L (22-30); Chloride 101 mmol/L (98-107); Creatine Kinase 98 U/L (55-170); Glucose 103 mg/dL (74-99); Non-African American GFR(CKD) 78 (>60 ml/min/1.73 sqM); Potassium 4.6 mmol/L (3.5-5.1); Sodium 133 mmol/L (137-145); Total Bilirubin 0.7 mg/dL (0.2-1.3); Total Protein 7.1 g/dL (6.3-8.2)
--- NOTE | 2024-12-03 15:42 | CT ---
EXAMINATION TYPE: CT angio head neck DATE OF EXAM: 12/03/2024 COMPARISON: None CLINICAL INDICATION: Male, 64 years old with history of r/o stroke; [facility], TECHNIQUE: CTA scan of the head and neck is obtained following nonionic IV contrast administration. The exam was performed Department CTA protocol. Axial images are obtained, coronal and sagittal refor matted images are reviewed. 3D reconstructed images are created on an independent workstation and rev iewed. 3-D postprocessing was performed. CT DLP: mGycm CT CTDI: mGy Automated exposure control for dose reduction was used. NASCET criteria was used in interpretation of this exam? FINDINGS: The brachiocephalic origins are widely patent and no significant stenosis. There is no significant stenosis of the common or internal carotid arteries within the neck. There is no stenosis of the vertebral arteries. Intracranially, there is no stenosis, segmental occlusion, sizable aneurysm sac or vascular malformat ion. IMPRESSION:. No significant abnormality seen. NASCET criteria was used in interpretation of this exam? [facility], Workstation: [id number] 12/03/2024 3:40 PM
[2024-12-03 16:03] LABS: Appearance,Urine Clear (Clear); Bilirubin,Urine Negative (Negative); Blood,Urine Trace (Negative); Color,Urine Colorless; Glucose,Urine (UA) Negative (Negative); Ketones,Urine Negative (Negative); Leukocyte Esterase,Urine Negative (Negative); Nitrite,Urine Negative (Negative); Protein,Urine Negative (Negative); RBC,Urine 3 /hpf (0-5); Specific Gravity,Urine 1.026 (1.001-1.035); Urobilinogen,Urine <2.0 mg/dL (<2.0)
--- NOTE | 2024-12-03 16:27 | ED ---
General Adult HPI - General Chief complaint: Neuro Symptoms/Deficit Stated complaint: Headache,Dizziness,L foot numbness Time Seen by Provider: 12/03/24 15:45 Source: patient, family, RN notes reviewed, old records reviewed Mode of arrival: wheelchair Limitations: no limitations - History of Present Illness Initial comments: Patient is a 64-year-old male who presents emergency department after being sent by his PCP to rule out brain bleed. Apparently patient has a history of aortic occlusion currently on medications, Xarelto for it. For the last month has been having worsening memory issues. Chronically, has intermittent leg pain, head pressure, headaches. Has been having issues with his memory for the last month that is more noticeable. Family does have a history of dementia in the past. He states he has been compliant with medications. Today he took a hit of his marijuana which he uses for pain and states that his head pressure sensation was a little bit worse than normal and his leg pain which usually does not go away w ith the marijuana completely resolved. He went to his PCP to get evaluated and they recommended he come here for CT imaging of brain bleed. He states he is currently at his baseline. Sister is at bedside and agrees with this. There is concern that he is having worsening dementia that has not been diagnosed yet, however it is more of a progressive issue for going on for a few months. Does have follow-up with neurology in 2 weeks as well as a vascular surgeon soon for further management. He states he is currently at his baseline. Patient's sister states he is currently at his baseline. Presented for further evaluation. Workup started in triage.Denies any current foot numbness or pain or leg pain. Denies any current lightheadedness or headache. Denies chest pain, shortness of breath, abdominal pain.Denies any falls. Denies any injuries. - Related Data Home Medications Medication Instructions Recorded Confirmed Atorvastatin [Lipitor] 80 mg PO HS 10/18/20 07/09/21 amLODIPine [Norvasc] 5 mg PO HS 10/18/20 07/09/21 ALPRAZolam [Xanax] 0.25 mg PO DAILY PRN 07/09/21 07/09/21 Aspirin 81 mg PO HS 07/09/21 07/09/21 Escitalopram [Lexapro] 15 mg PO HS 07/09/21 07/09/21 lisinopriL [Prinivil] 20 mg PO HS 07/09/21 07/09/21 Previous Rx's Medication Instructions Recorded Nicotine 21Mg/24Hr Patch [Habitrol] 1 each TRANSDERM DAILY #14 patch 07/09/21 Rivaroxaban [Xarelto] 2.5 mg PO BID #60 tablet 07/09/21 Cephalexin [Keflex] 500 mg PO Q6HR #28 cap 06/12/23 Allergies Allergy/AdvReac Type Severity Reaction Status Date / Time No Known Allergies Allergy Verified 12/03/24 14:20 Review of Systems ROS Statement: Those systems with pertinent positive or pertinent negative responses have been documented in the HPI. Review of Systems: CONST: Denies fever EYES: Denies blurry vision ENT: Denies nasal congestion C/V: Denies Chest pain RESP: Denies shortness of breath GI: Denies abdominal pain : Denies dysuria SKIN: Denies rash. MSK: Denies joint pain. NEURO: Denies headache ROS Other: All systems not noted in ROS Statement are negative. Past Medical History Past Medical History: Chest Pain / Angina, GERD/Reflux, Hearing Disorder / Deafness, Hyperlipidemia, Hypertension, Prostate Disorder, Vascular Disorder Additional Past Medical History / Comment(s): Severe aortic blockage below renal artery-has been seen at [facility], chronic bilateral leg pain, bilateral hands/feet numbness and tingling, optic migraines, sepsis in 2014, 2 lesions in throat, arthritis in lower back and ankles, enlarged prostate, sepsis History of Any Multi-Drug Resistant Organisms: None Reported Past Surgical History: Cholecystectomy Additional Past Surgical History / Comment(s): Microlaryngoscopy 11-28-18,Colonoscopy, anal fissure repair, colonoscopy with benign polypectomy Past Anesthesia/Blood Transfusion Reactions: No Reported Reaction Additional Past Anesthesia/Blood Transfusion Reaction / Comment(s): states has experienced balance issues after anesthesia Past Psychological History: Depression Smoking Status: Current every day smoker Past Alcohol Use History: None Reported Past Drug Use History: Marijuana - Past Family History Mother Family Medical History: No Reported History Sister(s) Family Medical History: Cancer Additional Family Medical History / Comment(s): breast Father Family Medical History: Hyperlipidemia, Hypertension, Myocardial Infarction (DC) Additional Family Medical History / Comment(s): cad General Exam - General Exam Comments Initial Comments: General: Appears in no acute distress. HEAD: Normal with no signs of head trauma. EYES: PERRLA, EOMI, conjunctiva normal, no discharge. Pupils are 3 mm and equal bilaterally. ENT: Hearing grossly intact, normal oropharynx. RESPIRATORY: Clear breath sounds bilaterally. No wheezes, rales, or rhonchi. C/V: Regular rate and rhythm. S1 and S2 auscultated, no edema, peripheral pulses 2+ and intact throughout ABD: Abd is soft, nontender, nondistended EXT: Normal range of motion, no obvious deformity SKIN: No rashes or lesions observed on exposed skin. NEURO: Alert and oriented x 4. Cranial nerves II-XII intact. No focal sensory or strength deficits. NIH of 0. Chronic lower extremity weakness for years secondary to chronic debility. No obvious memory issues on my discussion with the patient. Limitations: no limitations Course Vital Signs 12/03/24 12/03/24 14:10 16:37 Temperature 98.2 F 98.1 F Pulse Rate 84 77 Respiratory 18 18 Rate Blood Pressure 144/79 158/98 O2 Sat by Pulse 97 97 Oximetry Medical Decision Making - Medical Decision Making Was pt. sent in by a medical professional or institution (, PA, DIRECTOR ENERGY, urgent care, hospital, or assisted...) When possible be specific @ -No Did you speak to anyone other than the patient for history (EMS, parent, family, police, friend...)? What history was obtained from this source @ -Patient sisters at bedside and assisted with patient's past medical history as well as current assessment that he is at his baseline and all of his symptoms seem to be progressive ongoing for at least 1 month if not longer. Both she as well as the patient are concerned for possible dementia. Did you review nursing and triage notes (agree or disagree)? Why? @ -I reviewed and agree with nursing and triage notes Were old charts reviewed (outside hosp., previous admission, EMS record, old EKG, old radiological studies, urgent care reports/EKG's, assisted records)? Report findings @ -No old charts were reviewed Differential Diagnosis (chest pain, altered mental status, abdominal pain women, abdominal pain men, vaginal bleeding, weakness, fever, dyspnea, syncope, headache, dizziness, GI bleed, back pain, seizure, CVA, palpatations, mental health, musculoskeletal)? @ -Dementia, CVA, electrolyte abnormality, UTI. This list is not all inclusive. EKG interpreted by me (3pts min.). @ -As above X-rays interpreted by me (1pt min.). @ -Chest x-ray reveals no obvious acute cardiopulmonary process. CT interpreted by me (1pt min.). @ -CT of the brain negative for any obvious acute process. U/S interpreted by me (1pt. min.). @ -None done What testing was considered but not performed or refused? (CT, X-rays, U/S, labs)? Why? @ -None What meds were considered but not given or refused? Why? @ -None Did you discuss the management of the patient with other professionals (professionals i.e. , PA, DIRECTOR ENERGY, lab, RT, psych nurse, rn social services, insurance assistant, teacher, enforcement safety officer, protective services case worker)? Give summary @ -No Was smoking cessation discussed for >3mins.? @ -No Was critical care preformed (if so, how long)? @ -No Were there social determinants of health that impacted care today? How? (Homelessness, low income, unemployed, alcoholism, drug addiction, transportation, low edu. Level, literacy, decrease access to med. care, skilled nursing, rehab)? @ -No Was there de-escalation of care discussed even if they declined (Discuss DNR or withdrawal of care, Hospice)? DNR status @ -No What co-morbidities impacted this encounter? (DM, HTN, Smoking, COPD, CAD, Cancer, CVA, ARF, Chemo, Hep., AIDS, mental health diagnosis, sleep apnea, morbid obesity)? @ -None Was patient admitted / discharged? Hospital course, mention meds given and route, prescriptions, significant lab abnormalities, going to OR and other pertinent info. @ -Based on the patient's presentation and physical exam, was sent here to rule out possible brain bleed. He is currently at his normal baseline. I do suspect he may have some underlying progressive dementia occurring. However we will obtain urinalysis in addition to the workup that was already started in triage. Vital signs are within normal limits. Exam is unremarkable. Patient states he is currently at his baseline and patient's sister agrees with this assessment. States symptoms have been progressive for the last month, no acute changes. Laboratory studies returned unremarkable including undetectable troponin. Urinalysis within normal limits. CT imaging of the brain as well as chest x-ray negative for any obvious acute process or injuries. At this time, I updated the patient. He would like to go home I believe this is reasonable. He does have follow-up with neurology outpatient. Strict return precautions were discussed and he will be discharged home at this time. Is due to follow-up with Dr. Kohli on December 12. I instructed the patient to follow up with their PCP in the next 1-3 days. I explained that the patient should return to the emergency department if they experience any worsening symptoms. Strict return precautions were discussed with the patient. The patient expressed understanding of these instructions. I answered all questions that the patient had. The patient was discharged home in good condition with their prescriptions and follow up information. Undiagnosed new problem with uncertain prognosis? @ -No Drug Therapy requiring intensive monitoring for toxicity (Heparin, Nitro, Insulin, Cardizem)? @ -No Were any procedures done? @ -No Diagnosis/symptom? @ -Chronic pain, memory changes Acute, or Chronic, or Acute on Chronic? @ -Chronic Uncomplicated (without systemic symptoms) or Complicated (systemic symptoms)? @ -Uncomplicated Side effects of treatment? @ -No Exacerbation, Progression, or Severe Exacerbation? @ -No Poses a threat to life or bodily function? How? (Chest pain, USA, DC, pneumonia, PE, COPD, DKA, ARF, appy, cholecystitis, CVA, Diverticulitis, Homicidal, Suicidal, threat to staff... and all critical care pts) @ -Unlikely at this time - Lab Data Result diagrams: 12/03/24 14:57 12/03/24 14:57 Lab Results 12/03/24 12/03/24 12/03/24 Range/Units 14:57 14:57 14:57 WBC 8.7 (3.8-10.6) k/uL RBC 4.62 (4.30-5.90) m/uL Hgb 14.6 (13.0-17.5) gm/dL Hct 44.5 (39.0-53.0) % MCV 96.4 (80.0-100.0) fL MCH 31.7 (25.0-35.0) pg MCHC 32.9 (31.0-37.0) g/dL RDW 14.1 (11.5-15.5) % Plt Count 305 (150-450) k/uL MPV 7.1 Neutrophils % 58 % Lymphocytes % 31 % Monocytes % 6 % Eosinophils % 2 % Basophils % 0 % Neutrophils # 5.0 (1.3-7.7) k/uL Lymphocytes # 2.7 (1.0-4.8) k/uL Monocytes # 0.5 (0-1.0) k/uL Eosinophils # 0.2 (0-0.7) k/uL Basophils # 0.0 (0-0.2) k/uL PT 10.2 (10.0-12.5) sec INR 0.9 (<1.2) APTT 25.2 (22.0-30.0) sec Sodium 133 L (137-145) mmol/L Potassium 4.6 (3.5-5.1) mmol/L Chloride 101 (98-107) mmol/L Carbon Dioxide 24 (22-30) mmol/L Anion Gap 8 mmol/L BUN 15 (9-20) mg/dL Creatinine 1.02 (0.66-1.25) mg/dL Est GFR (CKD-EPI)AfAm 90 (>60 ml/min/1.73 sqM) Est GFR (CKD-EPI)NonAf 78 (>60 ml/min/1.73 sqM) Glucose 103 H (74-99) mg/dL Calcium 9.3 (8.4-10.2) mg/dL Total Bilirubin 0.7 (0.2-1.3) mg/dL AST 37 (17-59) U/L ALT 42 (4-49) U/L Alkaline Phosphatase 117 (38-126) U/L Creatine Kinase 98 (55-170) U/L Troponin I (0.000-0.034) ng/mL Total Protein 7.1 (6.3-8.2) g/dL Albumin 4.4 (3.5-5.0) g/dL Urine Color Urine Appearance (Clear) Urine pH (5.0-8.0) Ur Specific [place] (1.001-1.035) Urine Protein (Negative) Urine Glucose (UA) (Negative) Urine Ketones (Negative) Urine Blood (Negative) Urine Nitrite (Negative) Urine Bilirubin (Negative) Urine Urobilinogen (<2.0) mg/dL Ur Leukocyte Esterase (Negative) Urine RBC (0-5) /hpf 12/03/24 12/03/24 Range/Units 14:57 15:53 WBC (3.8-10.6) k/uL RBC (4.30-5.90) m/uL Hgb (13.0-17.5) gm/dL Hct (39.0-53.0) % MCV (80.0-100.0) fL MCH (25.0-35.0) pg MCHC (31.0-37.0) g/dL RDW (11.5-15.5) % Plt Count (150-450) k/uL MPV Neutrophils % % Lymphocytes % % Monocytes % % Eosinophils % % Basophils % % Neutrophils # (1.3-7.7) k/uL Lymphocytes # (1.0-4.8) k/uL Monocytes # (0-1.0) k/uL Eosinophils # (0-0.7) k/uL Basophils # (0-0.2) k/uL PT (10.0-12.5) sec INR (<1.2) APTT (22.0-30.0) sec Sodium (137-145) mmol/L Potassium (3.5-5.1) mmol/L Chloride (98-107) mmol/L Carbon Dioxide (22-30) mmol/L Anion Gap mmol/L BUN (9-20) mg/dL Creatinine (0.66-1.25) mg/dL Est GFR (CKD-EPI)AfAm (>60 ml/min/1.73 sqM) Est GFR (CKD-EPI)NonAf (>60 ml/min/1.73 sqM) Glucose (74-99) mg/dL Calcium (8.4-10.2) mg/dL Total Bilirubin (0.2-1.3) mg/dL AST (17-59) U/L ALT (4-49) U/L Alkaline Phosphatase (38-126) U/L Creatine Kinase (55-170) U/L Troponin I <0.012 (0.000-0.034) ng/mL Total Protein (6.3-8.2) g/dL Albumin (3.5-5.0) g/dL Urine Color Colorless Urine Appearance Clear (Clear) Urine pH 6.0 (5.0-8.0) Ur Specific Jackson 1.026 (1.001-1.035) Urine Protein Negative (Negative) Urine Glucose (UA) Negative (Negative) Urine Ketones Negative (Negative) Urine Blood Trace H (Negative) Urine Nitrite Negative (Negative) Urine Bilirubin Negative (Negative) Urine Urobilinogen <2.0 (<2.0) mg/dL Ur Leukocyte Esterase Negative (Negative) Urine RBC 3 (0-5) /hpf - EKG Data -: EKG Interpreted by Me EKG Comments: 12-lead Electrocardiogram Interpretation Note EKG was reviewed and interpreted by myself. 12-lead ECG performed at 1406 is interpreted by me as revealing normal sinus rhythm at a rate of 72 beats per minute. [place] is normal. CA interval is 128 ms, QRS duration is 83 ms, QTc is 376 ms.. There were no ST or T wave abnormalities to suggest myocardial ischemia or injury. R wave progression across the precordium was satisfactory. By my interpretation this EKG is non-diagnostic for acute ischemia. Disposition Clinical Impression: Chronic pain, Memory changes Disposition: HOME SELF-CARE Condition: Good Additional Instructions: Your workup today was unremarkable. As we discussed, follow-up with your neurologist as well as your new vascular surgeon. There is concern for possible early dementia but you need evaluation by neurology. Your symptoms today as well as your workup today did not reveal any obvious findings. Return to the ER if any worsening symptoms. Follow-up with your PCP in the next 1 to 3 days. Is patient prescribed a controlled substance at d/c from ED?: No Referrals: Yaya Rojas DO [Primary Care Provider] - 1-2 days Time of Disposition: 16:26
[2024-12-03 16:39] VITALS: BP 158/98; PULSE 77; TEMP 98.1
== END 2024-12-03 16:42 | disposition home or self-care (01) ==
LOC: EC 13:58
DX: G89.29 Other chronic pain (principal); R41.3 Other amnesia; F03.93 Unspecified dementia, unspecified severity, with mood disturbance; F17.200 Nicotine dependence, unspecified, uncomplicated
CPT/HCPCS: 36415; 93005; 80053; 82550; 84484; 85025; 85610; 85730; 81001; 71046; 70496; 70498; 99284; Q9967

== ENCOUNTER 2025-03-17 19:25 | Inpatient (IN) | payer BC, MEDICARE ==
--- NOTE | 2025-03-17 20:11 | ED ---
General Adult HPI - General Source: patient, RN notes reviewed Mode of arrival: ambulatory <Mer Valle - Last Filed: 03/17/25 20:09> - General Source: patient, family, RN notes reviewed, old records reviewed <Samia Ojeda - Last Filed: 03/18/25 01:19> <Farooq Muñiz - Last Filed: 03/18/25 08:01> - General Chief complaint: Abdominal Pain Stated complaint: Abd Pain Time Seen by Provider: 03/17/25 19:55 - History of Present Illness Initial comments: Quick note: 64-year-old male presents to the emergency department for evaluation of epigastric abdominal pain. Patient states that this has been going on for 2 months. He notes that over the past 1 to 2 days the pain has been significantly worse. He does note that he has been following with Dr. Olivier Roberts for this he was started on rifaximin. He has been taking this for around 3 days. He denies any fever, chills, nausea, vomiting. Reports normal bowel movements. He does report a history of aortic disease (Mer Valle) 64-year-old male presents with complaints of epigastric abdominal pain. States the pain has been going on for approximately 2 months and states it is more of a spasm than pain. Reports over the last 1 to 2 days the pain has gotten significantly worse though. Reports he has been following with Dr. Ciarra Roberts started on him on rifaximin approximately 3 days ago. Reports he also recently had a colonoscopy which showed diverticulosis, but otherwise no abnormalities. Denies being on blood thinners. States he has been having normal bowel movements, formed and solid daily with the color being brown and not noticing any blood or dark stools. Denies fever, chills, vomiting admits to some nausea. (Samia Ojeda) - Related Data Home Medications Medication Instructions Recorded Confirmed Atorvastatin [Lipitor] 80 mg PO HS 10/18/20 07/09/21 amLODIPine [Norvasc] 5 mg PO HS 10/18/20 07/09/21 ALPRAZolam [Xanax] 0.25 mg PO DAILY PRN 07/09/21 07/09/21 Aspirin 81 mg PO HS 07/09/21 07/09/21 Escitalopram [Lexapro] 15 mg PO HS 07/09/21 07/09/21 lisinopriL [Prinivil] 20 mg PO HS 07/09/21 07/09/21 Previous Rx's Medication Instructions Recorded Nicotine 21Mg/24Hr Patch [Habitrol] 1 each TRANSDERM DAILY #14 patch 07/09/21 Rivaroxaban [Xarelto] 2.5 mg PO BID #60 tablet 07/09/21 Cephalexin [Keflex] 500 mg PO Q6HR #28 cap 06/12/23 Allergies Allergy/AdvReac Type Severity Reaction Status Date / Time No Known Allergies Allergy Verified 12/03/24 14:20 Review of Systems ROS Other: All systems not noted in ROS Statement are negative. <Mer Valle - Last Filed: 03/17/25 20:09> ROS Other: All systems not noted in ROS Statement are negative. <Samia Ojeda - Last Filed: 03/18/25 01:19> ROS Other: All systems not noted in ROS Statement are negative. <Farooq Muñiz - Last Filed: 03/18/25 08:01> ROS Statement: Those systems with pertinent positive or pertinent negative responses have been documented in the HPI. Past Medical History Past Medical History: Chest Pain / Angina, GERD/Reflux, Hearing Disorder / Deafness, Hyperlipidemia, Hypertension, Prostate Disorder, Vascular Disorder Additional Past Medical History / Comment(s): Severe aortic blockage below renal artery-has been seen at [facility] and [facility], chronic bilateral leg pain, bilateral hands/feet numbness and tingling, optic migraines, sepsis in 2014, 2 lesions in throat, arthritis in lower back and ankles, enlarged pros scott, sepsis History of Any Multi-Drug Resistant Organisms: None Reported Past Surgical History: Cholecystectomy Additional Past Surgical History / Comment(s): Microlaryngoscopy 11-28-18,Colonoscopy, anal fissure repair, colonoscopy with benign polypectomy Past Anesthesia/Blood Transfusion Reactions: No Reported Reaction Additional Past Anesthesia/Blood Transfusion Reaction / Comment(s): states has experienced balance issues after anesthesia Past Psychological History: Depression Smoking Status: Current every day smoker Past Alcohol Use History: None Reported Past Drug Use History: Marijuana - Past Family History Mother Family Medical History: No Reported History Sister(s) Family Medical History: Cancer Additional Family Medical History / Comment(s): breast Father Family Medical History: Hyperlipidemia, Hypertension, Myocardial Infarction (MA) Additional Family Medical History / Comment(s): cad <Mer Valle - Last Filed: 03/17/25 20:09> General Exam <Mer Valle - Last Filed: 03/17/25 20:09> <Samia Ojeda - Last Filed: 03/18/25 01:19> - General Exam Comments Initial Comments: Visual Physical Exam Vital signs reviewed General: Well-appearing, nontoxic, no acute distress. Head: Normocephalic, atraumatic Eyes: PERRLA, EOMI ENT: Airway patent Chest: Nonlabored breathing Skin: No visual rash, normal skin tone Neuro: Alert and oriented 3 Musculoskeletal: No gross abnormalities (Mer Valle) GENERAL: In apparent distress at the time of examination. Pleasant and cooperative. HEENT: Head is atraumatic, normocephalic. Pupils are equal, round, and reactive to light. Sclerae anicteric. Conjunctivae are clear. Mucus membranes of the mouth are moist. Neck is supple. RESPIRATORY: Clear to auscultation. No wheezes, rales, or rhonchi. No use of accessory muscles. Patient maintaining oxygen saturation greater than 92%. No chest wall tenderness is noted on palpation or with deep breathing. CARDIOVASCULAR: Regular rate and rhythm. S1 and S2 noted. No systolic or diastolic murmur auscultated. No JVD noted. No S3 or S4 noted. GASTROINTESTINAL: Mild distention noted. Abdomen soft and round. Normal active bowel sounds auscultated x 4 quadrants. Significant tenderness to palpation diffusely especially in the epigastrium. INTEGUMENTARY: No cyanosis. No jaundice. No rashes noted. No cellulitis noted. EXTREMITIES: 2+ peripheral pulses. No evidence of peripheral edema. No calf tenderness noted. PSYCHIATRIC: Awake, alert, and oriented X 3. Appropriate affect. Intact judgement and insight. (Samia Ojeda) Course Vital Signs 03/17/25 03/17/25 03/18/25 19:49 23:00 02:02 Temperature 98.3 F 98.4 F Pulse Rate 79 70 68 Respiratory 18 22 16 Rate Blood Pressure 144/71 139/73 125/78 O2 Sat by Pulse 97 96 96 Oximetry Medical Decision Making <Mer Valle - Last Filed: 03/17/25 20:09> - Lab Data Result diagrams: 03/17/25 20:05 03/17/25 20:05 <LynetteSamia bhatia - Last Filed: 03/18/25 01:19> - Lab Data Result diagrams: 03/17/25 20:05 03/17/25 20:05 <Farooq Muñiz - Last Filed: 03/18/25 08:01> - Medical Decision Making Quick note preformed and electronically signed by Mer Valle PA-C (Mer Valle) Was pt. sent in by a medical professional or institution ([facility], [employer], urgent care, hospital, or [place] health [place] facility...) When possible be specific @ -No Did you speak to anyone other than the patient for history (EMS, parent, family, police, friend...)? What history was obtained from this source @ -No Did you review nursing and triage notes (agree or disagree)? Why? @ -I reviewed and agree with nursing and triage notes Were old charts reviewed (outside hosp., previous admission, EMS record, old EKG, old radiological studies, urgent care reports/EKG's, [place] health care facility records)? Report findings @ -No old charts were reviewed Differential Diagnosis? @ -Differential Abdominal Pain Men: Appendicitis, cholecystitis, diverticulosis, ischemic bowel, pancreatitis, hepatitis, UTI, gastroenteritis, AAA, incarcerated hernia, bowel obstruction, constipation, inflammatory bowel, hepatitis, peptic ulcer disease, splenic infarction, perforated viscus, testicular torsion, this is not meant to be an all-inclusive list EKG interpreted by me (3pts min.). @ -As above X-rays interpreted by me (1pt min.). @ -None done CT interpreted by me (1pt min.). @ -CT angio abdomen and pelvis showed small perforation of the anterior stomach. U/S interpreted by me (1pt. min.). @ -None done What testing was considered but not performed or refused? (CT, X-rays, U/S, labs)? Why? @ -None What meds were considered but not given or refused? Why? @ -None Did you discuss the management of the patient with other professionals (professionals i.e. [facility]iz, [employer], lab, RT, psych nurse, social sciences department chair, academic associate, teacher, seaman officer, casey saw operator)? Give summary @ -No Was smoking cessation discussed for >3mins.? @ -No Was critical care preformed (if so, how long)? @ -No Were there social determinants of health that impacted care today? How? (Homelessness, low income, unemployed, alcoholism, drug addiction, transportation, low edu. Level, literacy, decrease access to med. care, [facility], rehab)? @ -No Was there de-escalation of care discussed even if they declined (Discuss DNR or withdrawal of care, Hospice)? DNR status @ -No What co-morbidities impacted this encounter? (DM, HTN, Smoking, COPD, CAD, Cancer, CVA, ARF, Chemo, Hep., AIDS, mental health diagnosis, sleep apnea, morbid obesity)? @ -None Was patient admitted / discharged? Hospital course, mention meds given and route, prescriptions, significant lab abnormalities, going to OR and other pe rtinent info. @ -Admitted, 64-year-old male presenting with complaints of epigastric abdominal pain. States the pain has been chronic for the last 2 months, but recently has gotten significantly worse over the last day or 2. Patient underwent CBC CMP and lactic acid, had some elevated white blood count with a left shift lactic acid was within normal limits. Patient has history of occlusive abdominal aorta so CT angio abdomen and pelvis was ordered which showed a small perforation on the anterior stomach correlates with where the pain patient's main pain was. At that time patient was made n.p.o. and given single dose of Zosyn and started on Zosyn twice daily, general surgery was called and accepted the admission. Undiagnosed new problem with uncertain prognosis? @ -No Drug Therapy requiring intensive monitoring for toxicity (Heparin, Nitro, Insulin, Cardizem)? @ -No Were any procedures done? @ -No Diagnosis/symptom? @ -Anterior gastric perforation Acute, or Chronic, or Acute on Chronic? @ -Acute Uncomplicated (without systemic symptoms) or Complicated (systemic symptoms)? @ -Default Side effects of treatment? @ -No Exacerbation, Progression, or Severe Exacerbation? @ -No Poses a threat to life or bodily function? How? (Chest pain, [place], MA, pneumonia, PE, COPD, DKA, ARF, appy, cholecystitis, CVA, Diverticulitis, Homicidal, Suicidal, threat to staff... and all critical care pts) @ -Yes, gastric perforation can to endorgan damage which can lead to . (Samia Ojeda) I personally saw the patient and performed the critical portion of the service. I discussed the patient care with the resident. I directed management, care planning and final disposition of the patient. This includes, but not limited to, review of all lab work, radiological studies, EKG's, consultations, vital signs, and nursing notes. EKG interpreted by me (3pts min.) @ [as above] X-Rays interpreted by me (1 pt min.) @ [none] CT interpreted by me ( 1pt min.) @I interpreted the patient's CT scan of the abdomen and pelvis to show acute gastric perforation U/S interpreted by me (1 pt min.) @ [none] Critical care time of 35 minutes minutes excluding separately billable procedures was spent in conjunction with critical care activities provided by the Resident and Attending simultaneously. I was present during [no procedures] for all critical portions of the procedure and as immediately available to furnish service during the entire procedure. ( Farooq Muñiz) - Lab Data Lab Results 03/17/25 03/17/25 03/17/25 Range/Units 20:05 20:05 20:05 WBC 13.39 H (4.50-10.00) 10*3/uL RBC 3.75 L (4.40-5.60) 10*6/uL Hgb 12.1 L (13.0-17.0) g/dL Hct 34.5 L (39.6-50.0) % MCV 92.0 (80.0-97.0) fL MCH 32.3 H (27.0-32.0) pg MCHC 35.1 (32.0-37.0) g/dL Plt Count 287 (140-440) 10*3/uL MPV 9.4 L (9.5-12.2) fL Immature Gran % (Auto) 0.3 % Neutrophils % 68.8 % Lymphocytes % 22.5 % Monocytes % 6.8 % Eosinophils % 1.2 % Basophils % 0.4 % Immature Gran # 0.04 (0.00-0.04) 10*3/uL Neutrophils # 9.22 H (1.80-7.70) 10*3/uL Lymphocytes # 3.01 (0.90-5.00) 10*3/uL Monocytes # 0.91 (0.20-1.00) 10*3/uL Eosinophils # 0.16 (0.04-0.35) 10*3/uL Basophils # 0.05 (0.00-0.10) 10*3/uL PT 10.3 (10.0-12.5) sec INR 0.9 (<1.2) APTT 24.4 (22.0-30.0) sec Sodium 130 L (137-145) mmol/L Potassium 4.2 (3.5-5.1) mmol/L Chloride 100 (98-107) mmol/L Carbon Dioxide 21 L (22-30) mmol/L Anion Gap 9 mmol/L BUN 22 H (9-20) mg/dL Creatinine 1.14 (0.66-1.25) mg/dL Est GFR (CKD-EPI)AfAm 79 (>60 ml/min/1.73 sqM) Est GFR (CKD-EPI)NonAf 68 (>60 ml/min/1.73 sqM) Glucose 108 H (74-99) mg/dL Plasma Lactic Acid Mando (0.7-2.0) mmol/L Calcium 9.2 (8.4-10.2) mg/dL Total Bilirubin 0.4 (0.2-1.3) mg/dL AST 29 (17-59) U/L ALT 29 (4-49) U/L Alkaline Phosphatase 127 H (38-126) U/L Total Protein 6.3 (6.3-8.2) g/dL Albumin 3.7 (3.5-5.0) g/dL Amylase 192 H (30-110) U/L Lipase 234 (23-300) U/L / Range/Units 20:05 WBC (4.50-10.00) 10*3/uL RBC (4.40-5.60) 10*6/uL Hgb (13.0-17.0) g/dL Hct (39.6-50.0) % MCV (80.0-97.0) fL MCH (27.0-32.0) pg MCHC (32.0-37.0) g/dL Plt Count (140-440) 10*3/uL MPV (9.5-12.2) fL Immature Gran % (Auto) % Neutrophils % % Lymphocytes % % Monocytes % % Eosinophils % % Basophils % % Immature Gran # (0.00-0.04) 10*3/uL Neutrophils # (1.80-7.70) 10*3/uL Lymphocytes # (0.90-5.00) 10*3/uL Monocytes # (0.20-1.00) 10*3/uL Eosinophils # (0.04-0.35) 10*3/uL Basophils # (0.00-0.10) 10*3/uL PT (10.0-12.5) sec INR (<1.2) APTT (22.0-30.0) sec Sodium (137-145) mmol/L Potassium (3.5-5.1) mmol/L Chloride (98-107) mmol/L Carbon Dioxide (22-30) mmol/L Anion Gap mmol/L BUN (9-20) mg/dL Creatinine (0.66-1.25) mg/dL Est GFR (CKD-EPI)AfAm (>60 ml/min/1.73 sqM) Est GFR (CKD-EPI)NonAf (>60 ml/min/1.73 sqM) Glucose (74-99) mg/dL Plasma Lactic Acid Mando 0.8 (0.7-2.0) mmol/L Calcium (8.4-10.2) mg/dL Total Bilirubin (0.2-1.3) mg/dL AST (17-59) U/L ALT (4-49) U/L Alkaline Phosphatase (38-126) U/L Total Protein (6.3-8.2) g/dL Albumin (3.5-5.0) g/dL Amylase (30-110) U/L Lipase (23-300) U/L Disposition <Mer Valle - Last Filed: 03/17/25 20:09> <Samia Ojeda - Last Filed: 03/18/25 01:19> <Farooq Muñiz - Last Filed: 03/18/25 08:01> Clinical Impression: Gastric perforation Disposition: ADMITTED IP TO THIS HOSP
[2025-03-17 20:26] LABS: Basophils # (A) 0.05 10*3/uL (0.00-0.10); Basophils % (A) 0.4 %; Eosinophils # (A) 0.16 10*3/uL (0.04-0.35); Eosinophils % (A) 1.2 %; HCT 34.5 % (39.6-50.0); HGB 12.1 g/dL (13.0-17.0); Lymphocytes # (A) 3.01 10*3/uL (0.90-5.00); Lymphocytes % (A) 22.5 %; MCH 32.3 pg (27.0-32.0); MCHC 35.1 g/dL (32.0-37.0); MCV 92.0 fL (80.0-97.0); Monocytes # (A) 0.91 10*3/uL (0.20-1.00); Monocytes % (A) 6.8 %; Neutrophils # (A) 9.22 10*3/uL (1.80-7.70); Neutrophils % (A) 68.8 %; Platelet Count 287 10*3/uL (140-440); RBC 3.75 10*6/uL (4.40-5.60); RDW 13.5 % (11.5-14.5); WBC 13.39 10*3/uL (4.50-10.00)
[2025-03-17 20:39] LABS: INR 0.9 (<1.2); Partial Thromboplastin Time 24.4 sec (22.0-30.0); Prothrombin Time 10.3 sec (10.0-12.5)
[2025-03-17 20:41] LABS: ALT 29 U/L (4-49); AST 29 U/L (17-59); African American GFR (CKD) 79 (>60 ml/min/1.73 sqM); Albumin 3.7 g/dL (3.5-5.0); Alkaline Phosphatase 127 U/L (38-126); Amylase 192 U/L (30-110); Anion Gap 9 mmol/L; Blood Urea Nitrogen 22 mg/dL (9-20); Calcium 9.2 mg/dL (8.4-10.2); Carbon Dioxide 21 mmol/L (22-30); Chloride 100 mmol/L (98-107); Glucose 108 mg/dL (74-99); Lipase 234 U/L (23-300); Non-African American GFR(CKD) 68 (>60 ml/min/1.73 sqM); Potassium 4.2 mmol/L (3.5-5.1); Sodium 130 mmol/L (137-145); Total Protein 6.3 g/dL (6.3-8.2)
[2025-03-17] MEDS: DICYCLOMINE 10 MG/ML 2 ML AMP IM STA (23:11)
--- NOTE | 2025-03-18 00:46 | CT ---
ADDENDUM - Added by Mushtaq Newton M.D. on 03/18/2025 1:12 AM (-04:00) Additional findings/impression: Asymmetrical wall thickening in the superior aspect of distal body/antrum of the stomach with tiny pocket of perforated gas and adjacent subtle mesenteric stranding best seen on series 502, images 33 to 38, indicating contained perforation likely due to gastric ulceration. Dr. Ojeda is aware of this finding. EXAM: CT Angiography Abdomen and Pelvis Without and With Intravenous Contrast CLINICAL HISTORY: abd pain hx of aortic occlusion TECHNIQUE: Axial computed tomographic angiography images of the abdomen and pelvis without and with intravenous contrast. Coronal and sagittal reconstructions are performed. CTDI is 78.5 mGy and DLP is 1059.4 mGy-cm. This CT exam was performed using one or more of the following dose reduction techniques: automated exposure control, adjustment of the mA and/or kV according to patient size, and/or use of iterative reconstruction technique. MIP reconstructed images were created and reviewed. 1310 images COMPARISON: 07/09/2021 FINDINGS: VASCULATURE: Aorta: Moderate amount of atherosclerotic calcifications. Aorta is completely occluded, just below the takeoff of right renal artery, about 8 mm more superior than on the prior study. No abdominal aortic aneurysm. No dissection. Celiac trunk and mesenteric arteries: Patent. 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 3 mm nonobstructive lower pole stone. Iliac arteries: Bilateral common iliac arteries are occluded. Decrease flow in left external iliac artery Reconstitution of flow at the bifurcation of bilateral common iliac arteries, likely via collateralization with superior mesenteric artery. Lung bases: Minimal right basilar atelectasis. ABDOMEN: Liver: Unremarkable. No mass. Gallbladder and bile ducts: Cholecystectomy clips. No ductal dilation. Pancreas: Unremarkable. No ductal dilation. No mass. Spleen: Unremarkable. No splenomegaly. Adrenals: Unremarkable. No mass. Kidneys and ureters: Unremarkable. No obstructing stones. No hydronephrosis. No solid mass. Stomach and bowel: Diffuse gastric wall thickening, likely due to underdistention. PELVIS: Appendix: Normal caliber appendix. Bladder: Unremarkable. No stones. No mass. Reproductive: Unremarkable as visualized. ABDOMEN and PELVIS: Intraperitoneal space: Unremarkable. No significant fluid collection. No free air. Bones/joints: No acute findings. Soft tissues: Unremarkable. Lymph nodes: Unremarkable. No enlarged lymph nodes. IMPRESSION: 1. 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 3 mm nonobstructive lower pole stone. 2. Aorta is completely occluded, just below the takeoff of right renal artery, about 8 mm more superior than on the prior study. 3. Reconstitution of flow at the bifurcation of bilateral common iliac arteries, likely via collateralization with superior mesenteric artery.
[2025-03-18] MEDS ORDERED: NALOXONE 0.4 MG/ML 1 ML VIAL IV PRN (01:05)
[2025-03-18] MEDS: PIPERACILLIN-TAZOBACTAM 3.375 GM in SODIUM CHLORIDE 0.9% 100 ML IVPB STA (01:25)
[2025-03-18] MEDS: LORazepam 1 MG/0.5 ML VIAL IV PRN (02:00)
[2025-03-18] MEDS: HYDROmorphone 1 MG/ML 1 ML SYRINGE IVP PRN (08:34)
[2025-03-18 08:39] LABS: Basophils # (A) 0.04 10*3/uL (0.00-0.10); Basophils % (A) 0.4 %; Eosinophils # (A) 0.15 10*3/uL (0.04-0.35); Eosinophils % (A) 1.6 %; HCT 34.8 % (39.6-50.0); HGB 12.3 g/dL (13.0-17.0); Lymphocytes # (A) 1.91 10*3/uL (0.90-5.00); Lymphocytes % (A) 20.7 %; MCH 32.5 pg (27.0-32.0); MCHC 35.3 g/dL (32.0-37.0); MCV 92.1 fL (80.0-97.0); Monocytes # (A) 0.79 10*3/uL (0.20-1.00); Monocytes % (A) 8.6 %; Neutrophils # (A) 6.33 10*3/uL (1.80-7.70); Neutrophils % (A) 68.6 %; Platelet Count 260 10*3/uL (140-440); RBC 3.78 10*6/uL (4.40-5.60); RDW 13.3 % (11.5-14.5); WBC 9.23 10*3/uL (4.50-10.00)
[2025-03-18] MEDS: SODIUM CHLORIDE 0.9% 1,000 ML IV SCH ×2 (08:55→14:01)
[2025-03-18 08:58] LABS: African American GFR (CKD) 86 (>60 ml/min/1.73 sqM); Anion Gap 4 mmol/L; Blood Urea Nitrogen 17 mg/dL (9-20); Calcium 8.9 mg/dL (8.4-10.2); Carbon Dioxide 23 mmol/L (22-30); Chloride 104 mmol/L (98-107); Glucose 96 mg/dL (74-99); Non-African American GFR(CKD) 74 (>60 ml/min/1.73 sqM); Potassium 4.2 mmol/L (3.5-5.1); Sodium 131 mmol/L (137-145)
[2025-03-18] MEDS: PIPERACILLIN-TAZOBACTAM 3.375 GM in SODIUM CHLORIDE 0.9% 100 ML IVPB SCH (09:14)
[2025-03-18] MEDS: PANTOPRAZOLE 40 MG/10 ML VIAL IVP SCH (09:14)
--- NOTE | 2025-03-18 09:37 | P.GSHP ---
History of Present Illness H&P Date: 03/18/25 CHIEF COMPLAINT: Abdominal pain HISTORY OF PRESENT ILLNESS: This is a 64-year-old male with a known history of stomach ulcers and NSAID use. He presents to the hospital with complaints of epigastric abdominal pain for the past 2 months. He reports that yesterday the pain became very severe and came into the ER. The pain was severe enough that it brought him to tears. He reports having dry heaves. He reports taking omeprazole [id number] for the last 2 weeks to help with his reflux and pain. He did not have any improvement. He reports that he does not take Xarelto at home. CT scan abdomen and pelvis had reported contained perforated gastric ulcer. He has been admitted to surgical service. PAST MEDICAL HISTORY: Chest Pain / Angina, GERD/Reflux, Hearing Disorder / Deafness, Hyperlipidemia, Hypertension, Prostate Disorder, Vascular Disorder, Severe aortic blockage below renal artery-has been seen at [facility], [facility] and [facility], chronic bilateral leg pain, bilateral hands/feet numbness and tingling, optic migraines, sepsis in 2015, 2 lesions in throat, arthritis in lower back and ankles, enlarged prostate, sepsis PAST SURGICAL HISTORY: Cholecystectomy, Microlaryngoscopy 11-28-18,Colonoscopy, anal fissure repair, colonoscopy with benign polypectomy MEDICATIONS: See below ALLERGIES: See below SOCIAL HISTORY: No illicit drug use. REVIEW OF SYSTEMS: CONSTITUTIONAL: Denies fever or chills. HEENT: Denies blurred vision, vision changes, or eye pain. Denies hemoptysis CARDIOVASCULAR: Denies chest pain or pressure. RESPIRATORY: No shortness of breath. GASTROINTESTINAL: See HPI for pertinent findings HEMATOLOGIC: Denies bleeding disorders. GENITOURINARY: Denies any blood in urine or increased urinary frequency. SKIN: Denies pruitis. Denies rash. PHYSICAL EXAM: VITAL SIGNS: Reviewed GENERAL: Well-developed in no acute distress. HEENT: No sclera icterus. Extraocular movements grossly intact. Moist buccal mucosa. Head is atraumatic, normocephalic. No nasal drainage. ABDOMEN: Soft. Mildly distended. Tenderness epigastric area. NEUROLOGIC: Alert and oriented. Cranial nerves II through XII grossly intact. LABORATORY DATA: WBC 13 down to 9.23 Hgb 12.3 platelets 260 Sodium 131 potassium 4.2 creatinine 1.06 Lactic acid 0.8 IMAGING: CTA abdomen pelvis reports asymmetrical wall thickening in the superior aspect of the distal body/antrum of the stomach with tiny pocket of perforated gas and adjacent subtle mesenteric stranding. Indicating contained perforation likely due to gastric ulceration ASSESSMENT: 1. Epigastric abdominal pain with likely a perforated gastric ulcer 2. History of NSAID use 3. History of peptic ulcer disease PLAN: - Patient scheduled for exploratory laparotomy with repair of gastric ulcer today with Dr. Galvan - N.p.o. 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 Signing provider agrees with the documented findings, assessment, and plan of care. Past Medical History Past Medical History: Chest Pain / Angina, GERD/Reflux, Hearing Disorder / Deafness, Hyperlipidemia, Hypertension, Prostate Disorder, Vascular Disorder Additional Past Medical History / Comment(s): Severe aortic blockage below renal artery-has been seen at [facility] and [facility], chronic bilateral leg pain since 4 years old, likely related to aortic blockage; bilateral hands/feet numbness and tingling, optic migraines, sepsis in 2014, 2 lesions in throat, ar thritis in lower back and ankles, enlarged prostate, sepsis History of Any Multi-Drug Resistant Organisms: None Reported Past Surgical History: Cholecystectomy Additional Past Surgical History / Comment(s): Microlaryngoscopy 11-28-18,Colonoscopy, anal fissure repair, colonoscopy with benign polypectomy Past Anesthesia/Blood Transfusion Reactions: No Reported Reaction Additional Past Anesthesia/Blood Transfusion Reaction / Comment(s): states has experienced balance issues after anesthesia Past Psychological History: Depression Additional Psychological History / Comment(s): Pt resides with his spouse. 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 Smoking Status: Current every day smoker Past Alcohol Use History: None Reported Additional Past Alcohol Use History / Comment(s): Pt started smoking in 1973 and is a half ppd smoker Past Drug Use History: Marijuana - Past Family History Mother Family Medical History: No Reported History Sister(s) Family Medical History: Cancer Additional Family Medical History / Comment(s): breast Father Family Medical History: Hyperlipidemia, Hypertension, Myocardial Infarction ([place]) Additional Family Medical History / Comment(s): cad Medications and Allergies Home Medications Medication Instructions Recorded Confirmed Type Atorvastatin [Lipitor] 80 mg PO HS 10/18/20 07/09/21 History amLODIPine [Norvasc] 5 mg PO HS 10/18/20 07/09/21 History ALPRAZolam [Xanax] 0.25 mg PO DAILY PRN 07/09/21 07/09/21 History Aspirin 81 mg PO HS 07/09/21 07/09/21 History Escitalopram [Lexapro] 15 mg PO HS 07/09/21 07/09/21 History Nicotine 21Mg/24Hr Patch [Habitrol] 1 each TRANSDERM DAILY #14 patch 07/09/21 Rx Rivaroxaban [Xarelto] 2.5 mg PO BID #60 tablet 07/09/21 Rx lisinopriL [Prinivil] 20 mg PO HS 07/09/21 07/09/21 History Cephalexin [Keflex] 500 mg PO Q6HR #28 cap 06/12/23 Rx Allergies Allergy/AdvReac Type Severity Reaction Status Date / Time No Known Allergies Allergy Verified 12/03/24 14:20 Surgical - Exam Vital Signs Temp Pulse Resp BP Pulse Ox 98.3 F 79 18 144/71 97 03/17/25 19:49 03/17/25 19:49 03/17/25 19:49 03/17/25 19:49 03/17/25 19:49 Results - Labs 03/18/25 08:24 03/18/25 08:24 Abnormal Lab Results - Last 24 Hours (Table) 03/17/25 03/17/25 03/18/25 Range/Units 20:05 20:05 08:24 WBC 13.39 H (4.50-10.00) 10*3/uL RBC 3.75 L 3.78 L (4.40-5.60) 10*6/uL Hgb 12.1 L 12.3 L (13.0-17.0) g/dL Hct 34.5 L 34.8 L (39.6-50.0) % MCH 32.3 H 32.5 H (27.0-32.0) pg MPV 9.4 L 9.0 L (9.5-12.2) fL Neutrophils # 9.22 H (1.80-7.70) 10*3/uL Sodium 130 L (137-145) mmol/L Carbon Dioxide 21 L (22-30) mmol/L BUN 22 H (9-20) mg/dL Glucose 108 H (74-99) mg/dL Alkaline Phosphatase 127 H (38-126) U/L Amylase 192 H (30-110) U/L 03/18/25 Range/Units 08:24 WBC (4.50-10.00) 10*3/uL RBC (4.40-5.60) 10*6/uL Hgb (13.0-17.0) g/dL Hct (39.6-50.0) % MCH (27.0-32.0) pg MPV (9.5-12.2) fL Neutrophils # (1.80-7.70) 10*3/uL Sodium 131 L (137-145) mmol/L Carbon Dioxide (22-30) mmol/L BUN (9-20) mg/dL Glucose (74-99) mg/dL Alkaline Phosphatase (38-126) U/L Amylase (30-110) U/L Diabetes panel 03/17/25 03/18/25 Range/Units 20:05 08:24 Sodium 130 L 131 L (137-145) mmol/L Potassium 4.2 4.2 (3.5-5.1) mmol/L Chloride 100 104 (98-107) mmol/L Carbon Dioxide 21 L 23 (22-30) mmol/L BUN 22 H 17 (9-20) mg/dL Creatinine 1.14 1.06 (0.66-1.25) mg/dL Glucose 108 H 96 (74-99) mg/dL Calcium 9.2 8.9 (8.4-10.2) mg/dL AST 29 (17-59) U/L ALT 29 (4-49) U/L Alkaline Phosphatase 127 H (38-126) U/L Total Protein 6.3 (6.3-8.2) g/dL Albumin 3.7 (3.5-5.0) g/dL Calcium panel 03/17/25 03/18/25 Range/Units 20:05 08:24 Calcium 9.2 8.9 (8.4-10.2) mg/dL Albumin 3.7 (3.5-5.0) g/dL Pituitary panel 03/17/25 03/18/25 Range/Units 20:05 08:24 Sodium 130 L 131 L (137-145) mmol/L Potassium 4.2 4.2 (3.5-5.1) mmol/L Chloride 100 104 (98-107) mmol/L Carbon Dioxide 21 L 23 (22-30) mmol/L BUN 22 H 17 (9-20) mg/dL Creatinine 1.14 1.06 (0.66-1.25) mg/dL Glucose 108 H 96 (74-99) mg/dL Calcium 9.2 8.9 (8.4-10.2) mg/dL Adrenal panel 03/17/25 03/18/25 Range/Units 20:05 08:24 Sodium 130 L 131 L (137-145) mmol/L Potassium 4.2 4.2 (3.5-5.1) mmol/L Chloride 100 104 (98-107) mmol/L Carbon Dioxide 21 L 23 (22-30) mmol/L BUN 22 H 17 (9-20) mg/dL Creatinine 1.14 1.06 (0.66-1.25) mg/dL Glucose 108 H 96 (74-99) mg/dL Calcium 9.2 8.9 (8.4-10.2) mg/dL Total Bilirubin 0.4 (0.2-1.3) mg/dL AST 29 (17-59) U/L ALT 29 (4-49) U/L Alkaline Phosphatase 127 H (38-126) U/L Total Protein 6.3 (6.3-8.2) g/dL Albumin 3.7 (3.5-5.0) g/dL
--- NOTE | 2025-03-18 10:55 | P.ANPRN ---
Procedure Note - Anesthesia - Nerve Block Performed Bilateral Erector Spinae Single Time Out Performed: Yes Date of Procedure: 03/18/25 Procedure Start Time: 10:45 Procedure Stop Time: 10:50 Location of Patient: PreOp Indication: Acute Post-Operative Pain Sedation Type: Awake Preparation: Sterile Prep Position: Sitting Needle Types: Pajunk Needle Gauge: 21 Ultrasound used to visualize needle placement: Yes Ultrasound used to observe medication spread: Yes Injectate: 0.5% Ropivacaine (see comment for volume) (12 ml left, 12 ml right) Narrative: bilateral T9 esb Blood Aspirated: No Pain Paresthesia on Injection Noted: No Resistance on Injection: Normal Image Stored and Saved: Yes Events: Uneventful and Well Tolerated
[2025-03-18] MEDS: fentaNYL (PF) 50 MCG/ML 2 ML AMP IVP PRN (10:59)
[2025-03-18] MEDS: MIDAZOLAM 2 MG/2 ML VIAL IV ONE (11:00)
[2025-03-18] MEDS: IV FLUID CONTINUATION 1,000 ML IV ONE (11:00)
[2025-03-18] MEDS: DEXAMETHASONE SOD PHOSPHATE 4 MG/ML 1 ML VIAL IVP STA (11:03)
[2025-03-18] MEDS: ONDANSETRON 4 MG/2 ML VIAL IVP STA (11:03)
[2025-03-18] MEDS ORDERED: fentaNYL (PF) 50 MCG/ML 2 ML AMP ONE (11:06)
[2025-03-18] MEDS ORDERED: NEOSTIGMINE 1 MG/ML 10 ML VIAL ONE (11:06)
[2025-03-18] MEDS ORDERED: HYDROmorphone (PF) 1 MG/ML ONE (11:06)
[2025-03-18] MEDS ORDERED: ROPIVACAINE 5 MG/ML 30 ML VIAL ONE (11:06)
[2025-03-18] MEDS ORDERED: ROCURONIUM 10 MG/ML (5 ML VIAL) IV ONE (11:06)
[2025-03-18] MEDS ORDERED: GLYCOPYRROLATE 0.2 MG/ML 2 ML VIAL ONE (11:06)
[2025-03-18] MEDS ORDERED: MIDAZOLAM 2 MG/2 ML VIAL ONE (11:06)
[2025-03-18] MEDS ORDERED: SUCCINYLCHOLINE CHLORIDE 200 MG/10 ML VIAL IV ONE (11:06)
[2025-03-18] MEDS ORDERED: SUGAMMADEX SODIUM 100 MG/ML SYR IV ONE (11:06)
[2025-03-18] MEDS ORDERED: PHENYLEPHRINE-0.9% NACL SYG 1,000 MCG/10 ML SYRINGE ONE (11:06)
[2025-03-18] MEDS ORDERED: LIDOCAINE 1% INJ 10MG/ML (20 ML MDV) ONE (11:06)
[2025-03-18] MEDS ORDERED: PROPOFOL 10 MG/ML 20 ML VIAL IV ONE (11:06)
--- NOTE | 2025-03-18 12:16 | P.OP ---
Date of Procedure: 03/18/25 Preoperative Diagnosis: Perforated gastric ulcer Postoperative Diagnosis: Perforated gastric ulcer Procedure(s) Performed: Repair of perforated gastric ulcer Anesthesia: ANA LAURA Surgeon: Fahad Galvan Pathology: none sent Condition: stable Disposition: PACU Description of Procedure: The patient was placed on the operative table in supine position. He received general endotracheal tube anesthesia. His abdomen was prepped and draped in usual sterile fashion. The skin incised the upper midline. Using electrocautery the abdominal wall was divided. The abdominal wall retractor placed the wound. The stomach was visualized. In the prepyloric area there was evidence of a perforated gastric ulcer. The opening of the ulcer was approximate 4 mm in size. The ulcer area was oversewn with 3-0 silk suture. And then a modified Franco patch was placed over top of the repair and secured. The end was irrigated all bleeding seen. The fascia was closed with looped #1 PDS suture. Skin was closed kaylin. Patient tolerated the procedure well. He was sent to recovery room in stable condition.
[2025-03-18] MEDS: MEPERIDINE 50 MG/ML SYRINGE IVP STA (12:38)
--- NOTE | 2025-03-18 13:46 | P.HPIM ---
History of Present Illness 64-year-old male came in with abdominal pain found to capitated peptic ulcer started on antibiotics Zosyn taken to underwent repair of the perforated peptic ulcer when I evaluate the patient patient was just coming out of anesthesia un able to get much of the history from the patient patient does have leukocytosis but no fever patient has history of NSAID use. Patient had a severe abdominal pain on admission. REVIEW OF SYSTEMS: All other systems are negative except those mentioned in the HPI PHYSICAL EXAMINATION: GENERAL: The patient is drowsy just coming out of anesthesia not in any acute distress. Well developed, well nourished. HEENT: Pupils are round and equally reacting to light. EOMI. No scleral icterus. No conjunctival pallor. Normocephalic, atraumatic. No pharyngeal erythema. No thyromegaly. CARDIOVASCULAR: S1 and S2 present. No murmurs, rubs, or gallops. PULMONARY: Chest is clear to auscultation, no wheezing or crackles. ABDOMEN: Abdominal binder in place MUSCULOSKELETAL: No joint swelling or deformity. EXTREMITIES: No cyanosis, clubbing, or pedal edema. NEUROLOGICAL: Gross neurological examination did not reveal any focal deficits. SKIN: No rashes. Assessment and plan -Perforated peptic ulcer with peritonitis: Continue with antifungal and Zosyn patient status post repair of the perforation - Gastroesophageal reflux disease, NSAID use leading to severe peptic ulcer disease - Hypertension patient blood pressure is expected to go down because of which I am holding amlodipine - Hyperlipidemia - Three-vessel disease - Plan prostatic hypertrophy - Nicotine use counseling will be provided - Depression - Hypovolemic hyponatremia continue with IV fluids expected to improve with IV fluids DVT prophylaxis: As per primary service Past Medical History Past Medical History: Chest Pain / Angina, GERD/Reflux, Hearing Disorder / Deafness, Hyperlipidemia, Hypertension, Prostate Disorder, Vascular Disorder Additional Past Medical History / Comment(s): Severe aortic blockage below renal artery-has been seen at [facility], [facility] and [facility], chronic bilateral leg pain since 4 years old, likely related to aortic blockage; bilateral hands/feet numbness and tingling, optic migraines, sepsis in 2015, 2 lesions in throat, arthritis in lower back and ankles, enlarged prostate, sepsis History of Any Multi-Drug Resistant Organisms: None Reported Past Surgical History: Cholecystectomy Additional Past Surgical History / Comment(s): Microlaryngoscopy 11-28-18,Colonoscopy, anal fissure repair, colonoscopy with benign polypectomy Past Anesthesia/Blood Transfusion Reactions: No Reported Reaction Additional Past Anesthesia/Blood Transfusion Reaction / Comment(s): states has experienced balance issues after anesthesia Past Psychological History: Depression Additional Psychological History / Comment(s): Pt resides with 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 Smoking Status: Current every day smoker Past Alcohol Use History: None Reported Additional Past Alcohol Use History / Comment(s): Pt started smoking in 1973 and is a half ppd smoker Past Drug Use History: Marijuana - Past Family History Mother Family Medical History: No Reported History Sister(s) Family Medical History: Cancer Additional Family Medical History / Comment(s): breast Father Family Medical History: Hyperlipidemia, Hypertension, Myocardial Infarction ([place]) Additional Family Medical History / Comment(s): cad Medications and Allergies Home Medications Medication Instructions Recorded Confirmed Type Atorvastatin [Lipitor] 80 mg PO HS 10/18/20 03/18/25 History amLODIPine [Norvasc] 5 mg PO BID 10/18/20 03/18/25 History ALPRAZolam [Xanax] 0.25 mg PO DAILY PRN 07/09/21 03/18/25 History Aspirin 81 mg PO DAILY 07/09/21 03/18/25 History lisinopriL [Prinivil] 20 mg PO BID 07/09/21 03/18/25 History Celecoxib [CeleBREX] 200 mg PO BID 03/18/25 03/18/25 History Co Q-10 (Unkown Strength) 1 dose PO DAILY 03/18/25 03/18/25 History Cyclobenzaprine [Flexeril] 10 mg PO Q8H PRN 03/18/25 03/18/25 History Rifaximin [Xifaxan] 550 mg PO BID 03/18/25 03/18/25 History Sertraline [Zoloft] 100 mg PO DAILY 03/18/25 03/18/25 History Sildenafil Citrate [Viagra] 100 mg PO DAILY PRN 03/18/25 03/18/25 History Tretinoin [Tretinoin 0.025%] 1 applic TOPICAL HS 03/18/25 03/18/25 History Varenicline [Chantix Continuing 1 mg PO BID 03/18/25 03/18/25 History Pack] Vitamin D3 (Unkown Strength) 1 dose PO DAILY 03/18/25 03/18/25 History Allergies Allergy/AdvReac Type Severity Reaction Status Date / Time No Known Allergies Allergy Verified 03/18/25 10:25 Physical Exam Vitals: Vital Signs Temp Pulse Pulse Resp BP BP Pulse Ox 03/18/25 13:13 74 14 122/93 93 L 03/18/25 12:58 93 L 03/18/25 12:56 77 16 112/71 88 L 03/18/25 12:41 74 16 133/80 96 03/18/25 12:28 89 18 164/83 94 L 03/18/25 12:22 97.1 F L 92 18 170/156 92 L 03/18/25 11:07 65 16 136/76 98 03/18/25 10:52 71 16 137/74 98 03/18/25 10:47 62 16 128/69 96 03/18/25 10:42 65 16 114/73 97 03/18/25 10:37 67 16 145/79 97 03/18/25 10:05 97.5 F L 64 16 134/82 93 L 03/18/25 07:45 98.2 F 68 18 147/65 97 03/18/25 03:00 18 03/18/25 02:31 97.7 F 61 18 126/73 95 03/18/25 02:02 68 16 125/78 96 03/17/25 23:00 98.4 F 70 22 139/73 96 03/17/25 19:49 98.3 F 79 18 144/71 97 Intake and Output 03/17/25 03/18/25 03/18/25 22:59 06:59 14:59 Intake Total 300 Output Total 325 Balance -25 Intake: IV 300 Output: Urine 300 Estimated Blood Loss 25 Other: # Voids 1 # Bowel Movements 0 Weight 78.018 kg 78.018 kg Results CBC & Chem 7: 03/18/25 08:24 03/18/25 08:24 Labs: Abnormal Lab Results - Last 24 Hours (Table) 03/17/25 03/17/25 03/18/25 Range/Units 20:05 20:05 08:24 WBC 13.39 H (4.50-10.00) 10*3/uL RBC 3.75 L 3.78 L (4.40-5.60) 10*6/uL Hgb 12.1 L 12.3 L (13.0-17.0) g/dL Hct 34.5 L 34.8 L (39.6-50.0) % MCH 32.3 H 32.5 H (27.0-32.0) pg MPV 9.4 L 9.0 L (9.5-12.2) fL Neutrophils # 9.22 H (1.80-7.70) 10*3/uL Sodium 130 L (137-145) mmol/L Carbon Dioxide 21 L (22-30) mmol/L BUN 22 H (9-20) mg/dL Glucose 108 H (74-99) mg/dL Alkaline Phosphatase 127 H (38-126) U/L Amylase 192 H (30-110) U/L 06/24/25 Range/Units 08:24 WBC (4.50-10.00) 10*3/uL RBC (4.40-5.60) 10*6/uL Hgb (13.0-17.0) g/dL Hct (39.6-50.0) % MCH (27.0-32.0) pg MPV (9.5-12.2) fL Neutrophils # (1.80-7.70) 10*3/uL Sodium 131 L (137-145) mmol/L Carbon Dioxide (22-30) mmol/L BUN (9-20) mg/dL Glucose (74-99) mg/dL Alkaline Phosphatase (38-126) U/L Amylase (30-110) U/L Thrombosis Risk Factor Assmnt - Choose All That Apply Each Risk Factor Represents 2 Points: Age 61-74 years Each Risk Factor Represents 3 Points: Family history of DVT/PE Other congenital or acquired thrombophilia - If yes, enter type in comment: No Thrombosis Risk Factor Assessment Total Risk Factor Score: 5 Thrombosis Risk Factor Assessment Level: High Risk
[2025-03-18] MEDS: ALPRAZolam 0.25 MG TAB PO PRN (13:59)
[2025-03-18] MEDS: SERTRALINE 100 MG TAB PO SCH (13:59)
[2025-03-18] MEDS: amLODIPine 5 MG TAB PO SCH (15:23)
[2025-03-18] MEDS: ANIDULAFUNGIN 200 MG in SODIUM CHLORIDE 0.9% 200 ML IVPB ONE (16:53)
[2025-03-18] MEDS: CYCLOBENZAPRINE 5 MG TAB PO SCH (18:27)
[2025-03-18] MEDS: RIFAXIMIN 550 MG TABLET PO SCH (20:37)
[2025-03-18] MEDS: VARENICLINE 1 MG TAB PO SCH (20:37)
[2025-03-18] MEDS: ATORVASTATIN 80 MG TAB PO SCH (20:37)
[2025-03-18] MEDS: MORPHINE SULFATE 4 MG/ML SYRINGE IVP PRN (20:38)
[2025-03-18] MEDS: NICOTINE 21MG/24HR PATCH TRANSDERM SCH (20:40)
[2025-03-18 21:01] LABS: Glucose,Whole Blood 150 mg/dL (70-110)
--- NOTE | 2025-03-18 22:37 | P.CONS ---
History of Present Illness - Reason for Consult Consult date: 03/18/25 Perforated gastric ulcer Requesting physician: Elizabeth Bai - Chief Complaint Abdominal pain x few days - History of Present Illness Patient is a 64-year-old male with a past medical history significant for hypertension hyperlipidemia reflux vascular disease patient apparently has been dealing with abdominal pain for couple of months now mostly epigastric area patient mention he recently saw his mmd unit teacher who put him on antibiotic which she took it on an empty stomach subsequent still having significant epigastric pain which was sharp in nature. The redness severity with a CC of dry heaves but no vomiting denies having constipation and denies having any high-grade fever or chills with the symptoms the patient presented to hospital on arrival to the ER patient was afebrile no fever Hemoccult subsequently patient was not tachycardic hypotensive is mildly hypoxic currently on 2 L nasal oxygen patient did have a white count of 13.39 with a left shift creatinine is 1.14 electrolytes are normal liver enzymes are normal amylase was 192 lipase was normal patient did have a abdominal pelvis CTA that was reported as asymmetric wall thickening in the superior aspect of the distal body antrum of the stomach without any pocket of perforated gas patient was taken to the OR this patient is status post repair of perforated gastric ulcer subsequently has been admitted to the hospital infectious disease was consulted for further management of an tibiotic therapy Review of Systems Positive point and negatives has been mentioned in the HPI, complete review of systems was performed and all other systems are negative Past Medical History Past Medical History: Chest Pain / Angina, GERD/Reflux, Hearing Disorder / Deafness, Hyperlipidemia, Hypertension, Prostate Disorder, Vascular Disorder Additional Past Medical History / Comment(s): Severe aortic blockage below renal artery-has been seen at [facility], chronic bilateral leg pain since 4 years old, likely related to aortic blockage; bilateral hands/feet numbness and tingling, optic migraines, sepsis in 2015, 2 lesions in throat, arthritis in lower back and ankles, enlarged prostate, sepsis History of Any Multi-Drug Resistant Organisms: None Reported Past Surgical History: Cholecystectomy Additional Past Surgical History / Comment(s): Microlaryngoscopy 11-28-18,Colonoscopy, anal fissure repair, colonoscopy with benign polypectomy Past Anesthesia/Blood Transfusion Reactions: No Reported Reaction Additional Past Anesthesia/Blood Transfusion Reaction / Comm: states has experienced balance issues after anesthesia Past Psychological History: Depression Additional Psychological History / Comment(s): Pt resides with his spouse. 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 Smoking Status: Current every day smoker Past Alcohol Use History: None Reported Additional Past Alcohol Use History / Comment(s): Pt started smoking in 1973 and is a half ppd smoker Past Drug Use History: Marijuana - Past Family History Mother Family Medical History: No Reported History Sister(s) Family Medical History: Cancer Additional Family Medical History / Comment(s): breast Father Family Medical History: Hyperlipidemia, Hypertension, Myocardial Infarction ([place]) Additional Family Medical History / Comment(s): cad Medications and Allergies Home Medications Medication Instructions Recorded Confirmed Type Atorvastatin [Lipitor] 80 mg PO HS 10/18/20 03/18/25 History amLODIPine [Norvasc] 5 mg PO BID 10/18/20 03/18/25 History ALPRAZolam [Xanax] 0.25 mg PO DAILY PRN 07/09/21 03/18/25 History Aspirin 81 mg PO DAILY 07/09/21 03/18/25 History lisinopriL [Prinivil] 20 mg PO BID 07/09/21 03/18/25 History Celecoxib [CeleBREX] 200 mg PO BID 03/18/25 03/18/25 History Co Q-10 (Unkown Strength) 1 dose PO DAILY 03/18/25 03/18/25 History Cyclobenzaprine [Flexeril] 10 mg PO Q8H PRN 03/18/25 03/18/25 History Rifaximin [Xifaxan] 550 mg PO BID 03/18/25 03/18/25 History Sertraline [Zoloft] 100 mg PO DAILY 03/18/25 03/18/25 History Sildenafil Citrate [Viagra] 100 mg PO DAILY PRN 03/18/25 03/18/25 History Tretinoin [Tretinoin 0.025%] 1 applic TOPICAL HS 03/18/25 03/18/25 History Varenicline [Chantix Continuing 1 mg PO BID 03/18/25 03/18/25 History Pack] Vitamin D3 (Unkown Strength) 1 dose PO DAILY 03/18/25 03/18/25 History Allergies Allergy/AdvReac Type Severity Reaction Status Date / Time No Known Allergies Allergy Verified 03/18/25 10:25 Physical Exam Vitals: Vital Signs Temp Pulse Pulse Resp BP BP Pulse Ox 03/18/25 13:13 74 14 122/93 93 L 03/18/25 12:58 93 L 03/18/25 12:56 77 16 112/71 88 L 03/18/25 12:41 74 16 133/80 96 03/18/25 12:28 89 18 164/83 94 L 03/18/25 12:22 97.1 F L 92 18 170/156 92 L 03/18/25 11:07 65 16 136/76 98 03/18/25 10:52 71 16 137/74 98 03/18/25 10:47 62 16 128/69 96 03/18/25 10:42 65 16 114/73 97 03/18/25 10:37 67 16 145/79 97 03/18/25 10:05 97.5 F L 64 16 134/82 93 L 03/18/25 07:45 98.2 F 68 18 147/65 97 03/18/25 03:00 18 03/18/25 02:31 97.7 F 61 18 126/73 95 03/18/25 02:02 68 16 125/78 96 03/17/25 23:00 98.4 F 70 22 139/73 96 03/17/25 19:49 98.3 F 79 18 144/71 97 Intake and Output 03/17/25 03/18/25 03/18/25 22:59 06:59 14:59 Intake Total 300 Output Total 325 Balance -25 Intake: IV 300 Output: Urine 300 Estimated Blood Loss 25 Other: # Voids 1 # Bowel Movements 0 Weight 78.018 kg 78.018 kg GENERAL DESCRIPTION: Middle-age male lying in bed, no distress. No tachypnea or accessory muscle of respiration use. HEENT: Shows Pallor , no scleral icterus. Oral mucous membrane is dry. NECK: Trachea central, no thyromegaly. LUNGS: Unlabored breathing. Clear to auscultation anteriorly. No wheeze or crackle. HEART: S1, S2, regular rate and rhythm. No loud murmur ABDOMEN: Soft, mild distention and tenderness EXTREMITIES: No edema of feet. SKIN: No rash, no masses palpable. NEUROLOGICAL: The patient is awake, alert, oriented x3, mood and affect normal. Results CBC & Chem 7: 03/18/25 08:24 03/18/25 08:24 Labs: Abnormal Lab Results - Last 24 Hours (Table) 03/17/25 03/17/25 03/18/25 Range/Units 20:05 20:05 08:24 WBC 13.39 H (4.50-10.00) 10*3/uL RBC 3.75 L 3.78 L (4.40-5.60) 10*6/uL Hgb 12.1 L 12.3 L (13.0-17.0) g/dL Hct 34.5 L 34.8 L (39.6-50.0) % MCH 32.3 H 32.5 H (27.0-32.0) pg MPV 9.4 L 9.0 L (9.5-12.2) fL Neutrophils # 9.22 H (1.80-7.70) 10*3/uL Sodium 130 L (137-145) mmol/L Carbon Dioxide 21 L (22-30) mmol/L BUN 22 H (9-20) mg/dL Glucose 108 H (74-99) mg/dL Alkaline Phosphatase 127 H (38-126) U/L Amylase 192 H (30-110) U/L 03/18/25 Range/Units 08:24 WBC (4.50-10.00) 10*3/uL RBC (4.40-5.60) 10*6/uL Hgb (13.0-17.0) g/dL Hct (39.6-50.0) % MCH (27.0-32.0) pg MPV (9.5-12.2) fL Neutrophils # (1.80-7.70) 10*3/uL Sodium 131 L (137-145) mmol/L Carbon Dioxide (22-30) mmol/L BUN (9-20) mg/dL Glucose (74-99) mg/dL Alkaline Phosphatase (38-126) U/L Amylase (30-110) U/L Assessment and Plan (1) Peritonitis Current Visit: Yes Status: Acute Code(s): K65.9 - PERITONITIS, UNSPECIFIED SNOMED Code(s): 52315214 (2) Gastric perforation Current Visit: Yes Status: Acute Code(s): K25.5 - CHRONIC OR UNSPECIFIED GASTRIC ULCER WITH PERFORATION SNOMED Code(s): 568091869 (3) Leukocytosis Current Visit: Yes Status: Acute Code(s): D72.829 - ELEVATED WHITE BLOOD CELL COUNT, UNSPECIFIED SNOMED Code(s): 995894744 Plan: 1patient presented to hospital with severe abdominal pain in this patient has been diagnosed with a perforated peptic ulcer disease status post repair of the perforated gastric ulcer will need to go for the enteric gram-negative and Mira to be the likely pathogen involved any peritonitis associated with perforated gastric ulcer. 2leukocytosis likely due to perforated gastric ulcer and peritonitis 3-patient will be treated with Zosyn 3.375 g every 8 hours. 4cannot add Diflucan as the patient is on fentanyl hence the patient was started on Eraxis to cover for the Mira We will follow on clinical condition and cultures to further adjust medication if needed Thank you for this consultation we will follow the patient along with you Dictation was produced using [employer] dictation software. please excuse any grammatical, word or spelling errors. Time with Patient: Greater than 30
[2025-03-19 01:30] LABS: Glucose,Whole Blood 99 mg/dL (70-110)
[2025-03-19 07:21] LABS: Glucose,Whole Blood 94 mg/dL (70-110)
[2025-03-19] MEDS: ENOXAPARIN 40 MG/0.4 ML SYRINGE SQ SCH (08:57)
[2025-03-19] MEDS ORDERED: VITAMIN D3 PO SCH (09:00)
--- NOTE | 2025-03-19 11:11 | P.PN ---
Subjective Progress Note Date: 03/19/25 SURGICAL PROGRESS NOTE CHIEF COMPLAINT: Perforated gastric ulcer HISTORY OF PRESENT ILLNESS: Patient is postop day #1 status post repair of perforated gastric ulcer. Pain is controlled. Denies any nausea or vomiting. Denies any bowel activity. Afebrile. Urine output adequate. No new labs. Patient seen and examined with Dr. Galvan PHYSICAL EXAM: VITAL SIGNS: Reviewed. GENERAL: Well-developed in no acute distress. HEENT: No sclera icterus. Extraocular movements grossly intact. Moist buccal mucosa. Head is atraumatic, normocephalic. ABDOMEN: Soft. Tenderness at incision site. Prevena wound VAC intact. NEUROLOGIC: Alert and oriented. Cranial nerves II through XII grossly intact. ASSESSMENT: 1. Perforated gastric ulcer PLAN: - Keep patient n.p.o. - Continue IV fluids - Continue antibiotics per ID service - Continue PPI - Increase activity level - Encouraged incentive spirometer use - DVT prophylaxis Lovenox Physician Foot Doctor note has been reviewed by physician. Signing provider agrees with the documented findings, assessment, and plan of care. Objective - Vital Signs Vital signs: Vital Signs Temp 98.4 F 03/19/25 07:04 Pulse 71 03/19/25 07:04 Resp 20 03/19/25 07:04 BP 152/72 03/19/25 07:04 Pulse Ox 93 L 03/19/25 07:04 FiO2 Intake & Output 03/18/25 03/19/25 03/19/25 18:59 06:59 18:59 Intake Total 300 Output Total 1075 900 Balance -775 -900 Intake: IV 300 Output: Urine 1050 900 Estimated Blood Loss 25 Other: Voiding Method Indwelling Catheter Indwelling Catheter - Labs CBC & Chem 7: 03/18/25 08:24 03/18/25 08:24 Labs: Abnormal Lab Results - Last 24 Hours (Table) 03/18/25 Range/Units 20:58 POC Glucose (mg/dL) 150 H (70-110) mg/dL
[2025-03-19] MEDS: ACETAMINOPHEN IV (For NPO) 1,000 MG in EMPTY BAG 1 BAG IVPB SCH (13:29)
[2025-03-19] MEDS: LORazepam 1 MG/0.5 ML VIAL IV PRN (13:53)
[2025-03-19 14:17] LABS: Basophils # (A) 0.04 10*3/uL (0.00-0.10); Basophils % (A) 0.4 %; Eosinophils # (A) 0.05 10*3/uL (0.04-0.35); Eosinophils % (A) 0.5 %; HCT 32.6 % (39.6-50.0); HGB 11.4 g/dL (13.0-17.0); Lymphocytes # (A) 2.13 10*3/uL (0.90-5.00); Lymphocytes % (A) 21.8 %; MCH 32.7 pg (27.0-32.0); MCHC 35.0 g/dL (32.0-37.0); MCV 93.4 fL (80.0-97.0); Monocytes # (A) 0.72 10*3/uL (0.20-1.00); Monocytes % (A) 7.4 %; Neutrophils # (A) 6.82 10*3/uL (1.80-7.70); Neutrophils % (A) 69.7 %; Platelet Count 230 10*3/uL (140-440); RBC 3.49 10*6/uL (4.40-5.60); RDW 14.0 % (11.5-14.5); WBC 9.78 10*3/uL (4.50-10.00)
[2025-03-19 14:46] LABS: African American GFR (CKD) 83 (>60 ml/min/1.73 sqM); Anion Gap 5 mmol/L; Blood Urea Nitrogen 14 mg/dL (9-20); Calcium 8.1 mg/dL (8.4-10.2); Carbon Dioxide 21 mmol/L (22-30); Chloride 103 mmol/L (98-107); Glucose 94 mg/dL (74-99); Magnesium 1.8 mg/dL (1.6-2.3); Non-African American GFR(CKD) 71 (>60 ml/min/1.73 sqM); Potassium 4.0 mmol/L (3.5-5.1); Sodium 129 mmol/L (137-145)
[2025-03-19] MEDS: ANIDULAFUNGIN 100 MG in SODIUM CHLORIDE 0.9% 100 ML IVPB SCH (15:53)
[2025-03-19] MEDS: HYDROmorphone 0.5 MG/0.5 ML SYRINGE IVP PRN (16:44)
--- NOTE | 2025-03-20 04:53 | P.PN ---
Subjective Progress Note Date: 03/19/25 - Reason for Consult Sepsis, peritonitis - History of Present Illness 64-year-old male came in with abdominal pain found to capitated peptic ulcer started on antibiotics Zosyn taken to underwent repair of the perforated peptic ulcer when I evaluate the patient patient was just coming out of anesthesia unable to get much of the history from the patient patient does have leukocytosis but no fever patient has history of NSAID use. Patient had a severe abdominal pain on admission. 03/19/2025 Patient seen in follow-up today reporting severe intense abdominal pain and does have a binder noted. Hypoactive bowel sounds and patient reports feels like he is starting to pass some minimal gas. Patient is urinating and denies any pain or burning. Patient is requesting when he can eat as he reports to feeling hungry. Continue n.p.o. for now per general surgery and to be advanced only by general surgery. Patient is maintained on hydration and sodium is slightly less, reduce the dose of hydration and will follow-up with repeat labs. Other home medications will be reviewed and resumed as appropriate. Encourage increase activity as tolerated Review of systems: Constitutional: No reports of fatigue, fever, or chills Cardiovascular: No reports of chest pain or palpitations Respiratory: No reports of shortness of breath or cough GI: reports of nausea, no vomiting, no diarrhea : No reports of dysuria or retention Neurovascular: No reports of weakness or numbness All medications have been reviewed PHYSICAL EXAMINATION: GENERAL: The patient is awake, alert and oriented x 3. Well developed, thin built, elderly appearing HEENT: Pupils are round and equally reacting to light. EOMI. No scleral icterus. No conjunctival pallor. Normocephalic, atraumatic. No pharyngeal erythema. No th yromegaly. CARDIOVASCULAR: S1 and S2 muffled PULMONARY: Diminished breath sounds bilaterally otherwise chest is clear to auscultation, no wheezing or crackles. ABDOMEN: Abdominal binder in place with tenderness on palpation, hypoactive bowel sounds noted MUSCULOSKELETAL: No joint swelling or deformity. EXTREMITIES: No cyanosis, clubbing, or pedal edema. NEUROLOGICAL: Gross neurological examination did not reveal any focal deficits. SKIN: No rashes. Assessment: -Perforated peptic ulcer with peritonitis: status post repair of the perforation 03/18/2025 - Gastroesophageal reflux disease, NSAID use leading to severe peptic ulcer disease - Hypertension history, currently normotensive - Hyperlipidemia - Three-vessel disease history -Benign prostatic hypertrophy -Continued ongoing nicotine use counseling will be provided - Depression history - Hypovolemic hyponatremia continue with IV fluids expected to improve with IV fluids - GI prophylaxis -DVT prophylaxis: As per primary service - Full code Plan: Patient is admitted under general surgery status post gastric ulcer repair Patient is currently n.p.o. per general surgery and will continue Encourage increase activity as tolerated Will follow-up on repeat labs, replace electrolytes per protocol Spirometer use at least 10 times every hour while awake Nicotine patch and as needed inhalers Sodium on the lower side and will continue with gentle hydration at a reduced rate and repeat labs discontinuing fluids if sodium continues to decrease we will continue to follow with general surgery during hospitalization. Thank you kindly consultation The impression and plan of care has been dictated by Eliane Bertrand, Nurse Practitioner as directed. Dr. Eron MD I have performed a history and examination and MDM of this patient, discussed the same with the dictator, and agree with the dictator's assessment and plan as written ,documented as a scribe. Based on total visit time, I have performed more than 50% of the visit. Objective - Vital Signs Vital signs: Vital Signs Temp 98.4 F 03/19/25 07:04 Pulse 71 03/19/25 07:04 Resp 20 03/19/25 07:04 BP 152/72 03/19/25 07:04 Pulse Ox 93 L 03/19/25 07:04 FiO2 Intake & Output 03/18/25 03/19/25 03/19/25 18:59 06:59 18:59 Intake Total 300 Output Total 1075 900 Balance -775 -900 Intake: IV 300 Output: Urine 1050 900 Estimated Blood Loss 25 Other: Voiding Method Indwelling Catheter Indwelling Catheter - Labs CBC & Chem 7: 03/19/25 13:57 03/19/25 13:57 Labs: Abnormal Lab Results - Last 24 Hours (Table) 03/18/25 Range/Units 20:58 POC Glucose (mg/dL) 150 H (70-110) mg/dL
[2025-03-20 10:15] LABS: Basophils # (A) 0.04 X 10*3/uL (0.00-0.10); Basophils % (A) 0.4 %; Eosinophils # (A) 0.18 X 10*3/uL (0.04-0.35); Eosinophils % (A) 1.9 %; HCT 35.6 % (39.6-50.0); HGB 11.8 g/dL (13.0-17.0); Immature Grans, Automated 0.40 %; Lymphocytes # (A) 1.84 X 10*3/uL (0.90-5.00); Lymphocytes % (A) 19.6 %; MCH 31.6 pg (27.0-32.0); MCHC 33.1 g/dL (32.0-37.0); MCV 95.2 FL (80.0-97.0); Monocytes # (A) 0.66 X 10*3/uL (0.20-1.00); Monocytes % (A) 7.0 %; NRBC Per 100 WBC 0 X 10*3/uL (0.00-0.01); Neutrophils # (A) 6.62 X 10*3/uL (1.80-7.70); Neutrophils % (A) 70.7 %; Platelet Count 239 X 10*3/uL (140-440); RBC 3.74 X 10*6/uL (4.40-5.60); RDW 14.0 % (11.5-14.5); WBC 9.38 X 10*3/uL (4.50-10.00)
[2025-03-20 10:34] LABS: Anion Gap 8.00 mmol/L (4.00-12.00); BUN/Creat Ratio 11.09 Ratio (12.00-20.00); Blood Urea Nitrogen 12.2 mg/dL (9.0-27.0); Calcium 8.2 mg/dL (8.7-10.3); Carbon Dioxide 24.0 mmol/L (21.6-31.8); Chloride 102 mmol/L (96-109); Glucose 74 mg/dL (70-110); Potassium 4.8 mmol/L (3.5-5.5); Sodium 134 mmol/L (135-145)
--- NOTE | 2025-03-20 13:30 | P.PN ---
Subjective Progress Note Date: 03/20/25 SURGICAL PROGRESS NOTE CHIEF COMPLAINT: Perforated gastric ulcer HISTORY OF PRESENT ILLNESS: Patient is postop day #2 status post repair of perforated gastric ulcer. Patient's muscle spasms are improving. His pain is better controlled today. He denies any nausea or vomiting. Afebrile. WBC 9.38 sodium 134 Patient seen and examined with Dr. Galvan PHYSICAL EXAM: VITAL SIGNS: Reviewed. GENERAL: Well-developed in no acute distress. HEENT: No sclera icterus. Extraocular movements grossly intact. Moist buccal mucosa. Head is atraumatic, normocephalic. ABDOMEN: Soft. Tenderness at incision site. Prevena wound VAC intact. NEUROLOGIC: Alert and oriented. Cranial nerves II through XII grossly intact. ASSESSMENT: 1. Perforated gastric ulcer PLAN: - Keep patient n.p.o. - Advance diet to clear liquids starting tomorrow - Continue IV fluids - Continue antibiotics per ID service - Continue PPI - Increase activity level - Encouraged incentive spirometer use - Continue pain management - Discontinue Martell catheter in a.m. - DVT prophylaxis Lovenox Physician Cane Cutter note has been reviewed by physician. Signing provider agrees with the documented findings, assessment, and plan of care. Objective - Vital Signs Vital signs: Vital Signs Temp 98.4 F 03/20/25 12:08 Pulse 74 03/20/25 12:08 Resp 20 03/20/25 12:08 BP 156/66 03/20/25 12:08 Pulse Ox 92 L 03/20/25 12:08 FiO2 Intake & Output 03/19/25 03/20/25 03/20/25 18:59 06:59 18:59 Output Total 900 900 Balance -900 -900 Output: Urine 900 900 Other: Voiding Method Indwelling Catheter Indwelling Catheter Indwelling Catheter - Labs CBC & Chem 7: 03/20/25 06:18 03/20/25 06:18 Labs: Abnormal Lab Results - Last 24 Hours (Table) 03/19/25 03/19/25 03/20/25 Range/Units 13:57 13:57 06:18 RBC 3.49 L 3.74 L (4.40-5.60) 10*6/uL Hgb 11.4 L 11.8 L (13.0-17.0) g/dL Hct 32.6 L 35.6 L (39.6-50.0) % MCH 32.7 H (27.0-32.0) pg MPV 9.2 L (9.5-12.2) fL Sodium 129 L (137-145) mmol/L Carbon Dioxide 21 L (22-30) mmol/L BUN/Creatinine Ratio (12.00-20.00) Ratio Calcium 8.1 L (8.4-10.2) mg/dL // Range/Units 06:18 RBC (4.40-5.60) 10*6/uL Hgb (13.0-17.0) g/dL Hct (39.6-50.0) % MCH (27.0-32.0) pg MPV (9.5-12.2) fL Sodium 134 L (137-145) mmol/L Carbon Dioxide (22-30) mmol/L BUN/Creatinine Ratio 11.09 L (12.00-20.00) Ratio Calcium 8.2 L (8.4-10.2) mg/dL
--- NOTE | 2025-03-20 14:58 | P.PN ---
Subjective Progress Note Date: 03/19/25 Principal diagnosis: Reason for follow-up is perforated peptic ulcer disease/peritonitis Patient is a 64-year-old male with a past medical history significant for hypertension hyperlipidemia reflux vascular disease patient apparently has been dealing with abdominal pain diagnosed with perforated peptic ulcer disease status post laparotomy and repair of the perforated peptic ulcer. On today's evaluation that is 03/19/2025,the patient denies any fever or any chills, patient is breathing comfortably on 2 L nasal cannula oxygen , the patient denies chest pain shortness of breath and no significant cough, patient been complaining of abdominal pain nausea but no vomiting no bowel movement. Patient white count is 9.78, creatinine 1.09 Objective - Vital Signs Vital signs: Vital Signs Temp 98.1 F 03/19/25 12:22 Pulse 82 03/19/25 12:22 Resp 18 03/19/25 12:22 BP 152/75 03/19/25 12:22 Pulse Ox 91 L 03/19/25 12:22 FiO2 Intake & Output 03/18/25 03/19/25 03/19/25 18:59 06:59 18:59 Intake Total 300 Output Total 1075 900 Balance -775 -900 Intake: IV 300 Output: Urine 1050 900 Estimated Blood Loss 25 Other: Voiding Method Indwelling Catheter Indwelling Catheter - Exam GENERAL DESCRIPTION: Middle-age male lying in bed in no distress RESPIRATORY SYSTEM: Unlabored breathing , decreased breath sounds at bases HEART: S1 S2 regular rate and rhythm , ABDOMEN: Soft , mild distention and tenderness EXTREMITIES: No edema feet - Labs CBC & Chem 7: 03/20/25 06:18 03/20/25 06:18 Labs: Abnormal Lab Results - Last 24 Hours (Table) 03/18/25 Range/Units 20:58 POC Glucose (mg/dL) 150 H (70-110) mg/dL Assessment and Plan (1) Peritonitis Current Visit: Yes Status: Acute Code(s): K65.9 - PERITONITIS, UNSPECIFIED SNOMED Code(s): 10918153 (2) Gastric perforation Current Visit: Yes Status: Acute Code(s): K25.5 - CHRONIC OR UNSPECIFIED GASTRIC ULCER WITH PERFORATION SNOMED Code(s): 753422387 (3) Leukocytosis Current Visit: Yes Status: Acute Code(s): D72.829 - ELEVATED WHITE BLOOD CELL COUNT, UNSPECIFIED SNOMED Code(s): 276799661 Plan: 1patient presented to hospital with severe abdominal pain in this patient has been diagnosed with a perforated peptic ulcer disease status post repair of the perforated gastric ulcer will need to go for the enteric gram-negative and Mira to be the likely pathogen involved any peritonitis associated with perforated gastric ulcer. 2leukocytosis likely due to perforated gastric ulcer and peritonitis, the patient white count normalized 3-patient currently being treated with Zosyn 3.375 g every 8 hours and Eraxis, monitor clinical course closely Dictation was produced using [employer] software. please excuse any grammatical, word or spelling errors.
--- NOTE | 2025-03-20 14:59 | P.PN ---
Subjective Progress Note Date: 03/20/25 Principal diagnosis: Reason for follow-up is perforated peptic ulcer disease/peritonitis Patient is a 64-year-old male with a past medical history significant for hypertension hyperlipidemia reflux vascular disease patient apparently has been dealing with abdominal pain diagnosed with perforated peptic ulcer disease status post laparotomy and repair of the perforated peptic ulcer. On today's evaluation that is 03/20/2025,the patient remains to be afebrile, patient is on 2 L nasal cannula supplemental oxygen and denies any shortness of breath no chest pain or cough.Patient denies having any nausea or vomiting, abdominal pain is better controlled no bowel movement. Patient white was 9.38, creatinine is 1.1 Objective - Vital Signs Vital signs: Vital Signs Temp 98.4 F 03/20/25 12:08 Pulse 74 03/20/25 12:08 Resp 20 03/20/25 12:08 BP 156/66 03/20/25 12:08 Pulse Ox 92 L 03/20/25 12:08 FiO2 Intake & Output 03/19/25 03/20/25 03/20/25 18:59 06:59 18:59 Output Total 900 900 Balance -900 -900 Output: Urine 900 900 Other: Voiding Method Indwelling Catheter Indwelling Catheter Indwelling Catheter - Exam GENERAL DESCRIPTION: Middle-age male lying in bed in no distress RESPIRATORY SYSTEM: Unlabored breathing , decreased breath sounds at bases HEART: S1 S2 regular rate and rhythm , ABDOMEN: Soft , mild distention and tenderness EXTREMITIES: No edema feet - Labs CBC & Chem 7: 03/20/25 06:18 03/20/25 06:18 Labs: Abnormal Lab Results - Last 24 Hours (Table) 03/20/25 03/20/25 Range/Units 06:18 06:18 RBC 3.74 L (4.40-5.60) X 10*6/uL Hgb 11.8 L (13.0-17.0) g/dL Hct 35.6 L (39.6-50.0) % Sodium 134 L (135-145) mmol/L BUN/Creatinine Ratio 11.09 L (12.00-20.00) Ratio Calcium 8.2 L (8.7-10.3) mg/dL Assessment and Plan (1) Peritonitis Current Visit: Yes Status: Acute Code(s): K65.9 - PERITONITIS, UNSPECIFIED SNOMED Code(s): 13733136 (2) Gastric perforation Current Visit: Yes Status: Acute Code(s): K25.5 - CHRONIC OR UNSPECIFIED GASTRIC ULCER WITH PERFORATION SNOMED Code(s): 735287127 (3) Leukocytosis Current Visit: Yes Status: Acute Code(s): D72.829 - ELEVATED WHITE BLOOD CELL COUNT, UNSPECIFIED SNOMED Code(s): 624606479 Plan: 1patient presented to hospital with severe abdominal pain in this patient has been diagnosed with a perforated peptic ulcer disease status post repair of the perforated gastric ulcer will need to go for the enteric gram-negative and Mira to be the likely pathogen involved any peritonitis associated with perforated gastric ulcer. 2patient is afebrile the patient white count has normalized we will treat the patient with Zosyn 3.375 g every 8 hours and Eraxis while inpatient, monitor clinical course closely Dictation was produced using [employer] ([employer] dictation software. please excuse any grammatical, word or spelling errors. Time with Patient: Less than 30
[2025-03-20] MEDS: ACETAMINOPHEN IV (For NPO) 1,000 MG in EMPTY BAG 1 BAG IVPB SCH (15:11)
--- NOTE | 2025-03-20 23:10 | P.PN ---
Subjective Progress Note Date: 03/20/25 - Reason for Consult Sepsis, peritonitis - History of Present Illness 64-year-old male came in with abdominal pain found to capitated peptic ulcer started on antibiotics Zosyn taken to underwent repair of the perforated peptic ulcer when I evaluate the patient patient was just coming out of anesthesia unable to get much of the history from the patient patient does have leukocytosis but no fever patient has history of NSAID use. Patient had a severe abdominal pain on admission. 03/19/2025 Patient seen in follow-up today reporting severe intense abdominal pain and does have a binder noted. Hypoactive bowel sounds and patient reports feels like he is starting to pass some minimal gas. Patient is urinating and denies any pain or burning. Patient is requesting when he can eat as he reports to feeling hungry. Continue n.p.o. for now per general surgery and to be advanced only by general surgery. Patient is maintained on hydration and sodium is slightly less, reduce the dose of hydration and will follow-up with repeat labs. Other home medications will be reviewed and resumed as appropriate. Encourage increase activity as tolerated 03/20/2025 Patient seen and evaluated this morning currently asleep although easily arousable. Patient remains n.p.o. maintained on gentle hydration and kidney functions maintained in sodium is improved at 134, patient continues to be n.p.o. we will follow-up on repeat labs and continue with gentle hydration until patient is being started on clear liquids. Possible clear liquids per surgery in 24 hours. Encouraged increased activity as tolerated and continuing with abdominal binder as needed. Continue incentive spirometer use at least 10 times every hour while awake. Review of systems: Constitutional: reports of fatigue, no fever, or chills Cardiovascular: No reports of chest pain or palpitations Respiratory: No reports of shortness of breath or cough GI: reports of intermittent nausea although improving, no vomiting, no diarrhea, no bowel movement as of yet : No reports of dysuria or retention Neurovascular: reports of generalized weakness All medications have been reviewed PHYSICAL EXAMINATION: GENERAL: The patient is asleep although easily arousable, awake, alert and oriented x 3. Well developed, thin built, elderly appearing HEENT: Pupils are round and equally reacting to light. EOMI. No scleral icterus. No conjunctival pallor. Normocephalic, atraumatic. No pharyngeal erythema. No thyromegaly. CARDIOVASCULAR: S1 and S2 muffled PULMONARY: Diminished breath sounds bilaterally otherwise chest is clear to auscultation, no wheezing or crackles. ABDOMEN: Abdominal binder in place with tenderness on palpation, hypoactive bowel sounds noted MUSCULOSKELETAL: No joint swelling or deformity. EXTREMITIES: No cyanosis, clubbing, or pedal edema. NEUROLOGICAL: Gross neurological examination did not reveal any focal deficits. Diffusely weak SKIN: No rashes. Assessment: -Perforated peptic ulcer with peritonitis: status post repair of the perforation 03/18/2025 - Gastroesophageal reflux disease, NSAID use leading to severe peptic ulcer disease - Hypertension history, currently normotensive - Hyperlipidemia - Three-vessel disease history -Benign prostatic hypertrophy -Continued ongoing nicotine use counseling will be provided - Depression history - Hypovolemic hyponatremia continue with IV fluids for now as they have improved and is currently 134 from 129 - GI prophylaxis -DVT prophylaxis: As per primary service - Full code Plan: Patient is admitted under general surgery status post gastric ulcer repair Patient is currently n.p.o. per general surgery and will continue. Plans for initiating clear liquids on 03/21/2025 Encourage increase activity as tolerated. Recommend frequent walking as darwin ated Will follow-up on repeat labs, replace electrolytes per protocol Spirometer use at least 10 times every hour while awake Thank you kindly for this consultation. We will continue to follow general surgery during hospitalization. The impression and plan of care has been dictated by Eliane Bertrand, Nurse Practitioner as directed. Dr. Eron MD I have performed a history and examination and MDM of this patient, discussed the same with the dictator, and agree with the dictator's assessment and plan as written ,documented as a scribe. Based on total visit time, I have performed more than 50% of the visit. Objective - Vital Signs Vital signs: Vital Signs Temp 98.4 F 03/20/25 01:37 Pulse 65 03/20/25 01:37 Resp 18 03/20/25 01:37 BP 134/68 03/20/25 01:37 Pulse Ox 96 03/20/25 01:37 FiO2 Intake & Output 03/19/25 03/19/25 03/20/25 06:59 18:59 06:59 Output Total 900 900 Balance -900 -900 Output: Urine 900 900 Other: Voiding Method Indwelling Catheter Indwelling Catheter Indwelling Catheter - Labs CBC & Chem 7: 03/20/25 06:18 03/20/25 06:18 Labs: Abnormal Lab Results - Last 24 Hours (Table) 03/19/25 03/19/25 Range/Units 13:57 13:57 RBC 3.49 L (4.40-5.60) 10*6/uL Hgb 11.4 L (13.0-17.0) g/dL Hct 32.6 L (39.6-50.0) % MCH 32.7 H (27.0-32.0) pg MPV 9.2 L (9.5-12.2) fL Sodium 129 L (137-145) mmol/L Carbon Dioxide 21 L (22-30) mmol/L Calcium 8.1 L (8.4-10.2) mg/dL
--- NOTE | 2025-03-21 10:56 | XR ---
EXAMINATION TYPE: XR chest 1V DATE OF EXAM: 03/21/2025 10:08 AM COMPARISON: 12/03/2024 CLINICAL INDICATION: Male, 64 years old with history of CHF, TECHNIQUE: XR chest 1V view(s) obtained. FINDINGS: The heart size is normal. The pulmonary vasculature is normal. Mild lingular atelectasis may be at the left heart border. Mild lingular atelectasis is present in th e right infrahilar region as well. IMPRESSION: 1. Bibasilar infiltrates likely atelectasis. Pneumonia could be considered. Follow-up recommended. [facility], , 03/21/2025 10:54 AM
--- NOTE | 2025-03-21 14:40 | P.PN ---
Subjective Progress Note Date: 03/21/25 SURGICAL PROGRESS NOTE CHIEF COMPLAINT: Perforated gastric ulcer HISTORY OF PRESENT ILLNESS: Patient is postop day #3 status post repair of perforated gastric ulcer. Patient reports her muscle spasms are less. No bowel activity. Denies any nausea or vomiting. Did tolerate clear liquids this morning. Afebrile. Elevated BP agree with decreasing the IV fluids. WBC 9.38 Hgb 11.8 PHYSICAL EXAM: VITAL SIGNS: Reviewed. GENERAL: Well-developed in no acute distress. HEENT: No sclera icterus. Extraocular movements grossly intact. Moist buccal mucosa. Head is atraumatic, normocephalic. ABDOMEN: Soft. Tenderness at incision site. Prevena wound VAC intact. NEUROLOGIC: Alert and oriented. Cranial nerves II through XII grossly intact. ASSESSMENT: 1. Perforated gastric ulcer PLAN: - Continue clear liquid diet - Agree with decreasing IV fluids - Continue antibiotics per ID service - Continue PPI - Increase activity level - Encouraged incentive spirometer use - Continue pain management - DVT prophylaxis Lovenox Physician [employer] Developer note has been reviewed by physician. Signing provider agrees with the documented findings, assessment, and plan of care. I have personally seen and examined the patient, reviewed the [employer] [employer] /PAs history, exam and MDM and agree with the assessment and plan as written. Based on total visit time, I have performed more than 50% of the visit. As above: Patient seems to be doing well. Tolerating clear liquids. Continue to ambulate. Continue antiacid therapy. Objective - Vital Signs Vital signs: Vital Signs Temp 98.1 F 03/21/25 12:07 Pulse 72 03/21/25 12:07 Resp 16 03/21/25 12:07 BP 194/89 03/21/25 12:07 Pulse Ox 95 03/21/25 12:07 FiO2 Intake & Output 03/20/25 03/21/25 03/21/25 18:59 06:59 18:59 Intake Total 590 Output Total 1350 1000 200 Balance -1350 -410 -200 Intake: Oral 590 Output: Urine 1350 1000 200 Uretheral (Martell) 200 Other: Voiding Method Indwelling Catheter Indwelling Catheter Indwelling Catheter - Labs CBC & Chem 7: 03/20/25 06:18 03/20/25 06:18
[2025-03-21 21:41] LABS: Glucose,Whole Blood 93 mg/dL (70-110)
[2025-03-22] MEDS: PIPERACILLIN-TAZOBACTAM 3.375 GM in SODIUM CHLORIDE 0.9% 100 ML IVPB SCH (05:07)
--- NOTE | 2025-03-22 06:47 | P.PN ---
Subjective Progress Note Date: 03/21/25 - Reason for Consult Sepsis, peritonitis - History of Present Illness 64-year-old male came in with abdominal pain found to capitated peptic ulcer started on antibiotics Zosyn taken to underwent repair of the perforated peptic ulcer when I evaluate the patient patient was just coming out of anesthesia unable to get much of the history from the patient patient does have leukocytosis but no fever patient has history of NSAID use. Patient had a severe abdominal pain on admission. 03/19/2025 Patient seen in follow-up today reporting severe intense abdominal pain and does have a binder noted. Hypoactive bowel sounds and patient reports feels like he is starting to pass some minimal gas. Patient is urinating and denies any pain or burning. Patient is requesting when he can eat as he reports to feeling hungry. Continue n.p.o. for now per general surgery and to be advanced only by general surgery. Patient is maintained on hydration and sodium is slightly less, reduce the dose of hydration and will follow-up with repeat labs. Other home medications will be reviewed and resumed as appropriate. Encourage increase activity as tolerated 03/20/2025 Patient seen and evaluated this morning currently asleep although easily arousable. Patient remains n.p.o. maintained on gentle hydration and kidney functions maintained in sodium is improved at 134, patient continues to be n.p.o. we will follow-up on repeat labs and continue with gentle hydration until patient is being started on clear liquids. Possible clear liquids per surgery in 24 hours. Encouraged increased activity as tolerated and continuing with abdominal binder as needed. Continue incentive spirometer use at least 10 times every hour while awake. 03/21/2025 Patient seen and evaluated in follow-up and per nursing staff has just had indwelling Martell catheter removed this morning and patient has been encouraged to get up and increase activity as tolerated. Continue with abdominal binder and extremely hypoactive bowel sounds noted. Surgical incision is dry with prevana wound VAC noted with good suction. Abdomen mildly distended and somewhat tender on palpation. Encouraged incentive spirometer use at least 10 t imes every hour while awake. Surgery discussing initiating clear liquid diet today. Infectious disease following as well maintained on antibiotics. We will continue to follow with general surgery. Review of systems: Constitutional: reports of fatigue, no fever, or chills Cardiovascular: No reports of chest pain or palpitations Respiratory: No reports of shortness of breath or cough GI: No further reports of intermittent nausea, no vomiting, no diarrhea, no bowel movement as of yet : No reports of dysuria or retention Neurovascular: reports of generalized weakness All medications have been reviewed PHYSICAL EXAMINATION: GENERAL: The patient is asleep although easily arousable, awake, alert and oriented x 3. Well developed, thin built, elderly appearing HEENT: Pupils are round and equally reacting to light. EOMI. No scleral icterus. No conjunctival pallor. Normocephalic, atraumatic. No pharyngeal erythema. No thyromegaly. CARDIOVASCULAR: S1 and S2 muffled PULMONARY: Diminished breath sounds bilaterally otherwise chest is clear to auscultation, no wheezing or crackles. ABDOMEN: Abdominal binder in place with tenderness on palpation, hypoactive bowel sounds noted MUSCULOSKELETAL: No joint swelling or deformity. EXTREMITIES: No cyanosis, clubbing, or pedal edema. NEUROLOGICAL: Gross neurological examination did not reveal any focal deficits. Diffusely weak SKIN: No rashes. Assessment: -Perforated peptic ulcer with peritonitis: status post repair of the perforation 03/18/2025 - Gastroesophageal reflux disease, NSAID use leading to severe peptic ulcer disease - Hypertension history, currently normotensive - Hyperlipidemia - Three-vessel disease history -Benign prostatic hypertrophy -Continued ongoing nicotine use counseling will be provided - Depression history - Hypovolemic hyponatremia continue with IV fluids for now as they have improved and is currently 134 from 129 - GI prophylaxis -DVT prophylaxis: As per primary service - Full code Plan: Patient is admitted under general surgery status post gastric ulcer repair Patient is currently n.p.o. per general surgery and is being started on clear liquids today Encourage increase activity as tolerated. Recommend frequent walking as tolerated, bowel sounds are hypoactive, general surgery aware Will follow-up on repeat labs, replace electrolytes per protocol Martell catheter was removed and patient reports has voided Spirometer use at least 10 times every hour while awake Thank you kindly for this consultation. We will continue to follow general surgery during hospitalization. The impression and plan of care has been dictated by Eliane Bertrand, Nurse Practitioner as directed. Dr. Eron MD I have performed a history and examination and MDM of this patient, discussed the same with the dictator, and agree with the dictator's assessment and plan as written ,documented as a scribe. Based on total visit time, I have performed more than 50% of the visit. Objective - Vital Signs Vital signs: Vital Signs Temp 98.7 F 03/21/25 06:54 Pulse 73 03/21/25 06:54 Resp 16 03/21/25 06:54 BP 155/75 03/21/25 06:54 Pulse Ox 94 L 03/21/25 06:54 FiO2 Intake & Output 03/20/25 03/21/25 03/21/25 18:59 06:59 18:59 Intake Total 590 Output Total 1350 1000 Balance -1350 -410 Intake: Oral 590 Output: Urine 1350 1000 Other: Voiding Method Indwelling Catheter Indwelling Catheter - Labs CBC & Chem 7: 03/20/25 06:18 03/20/25 06:18 Labs: Abnormal Lab Results - Last 24 Hours (Table) 03/20/25 03/20/25 Range/Units 06:18 06:18 RBC 3.74 L (4.40-5.60) X 10*6/uL Hgb 11.8 L (13.0-17.0) g/dL Hct 35.6 L (39.6-50.0) % Sodium 134 L (135-145) mmol/L BUN/Creatinine Ratio 11.09 L (12.00-20.00) Ratio Calcium 8.2 L (8.7-10.3) mg/dL
--- NOTE | 2025-03-22 09:28 | P.PN ---
Subjective Progress Note Date: 03/22/25 Principal diagnosis: Perforated ulcer Patient says he was doing well until about 15 minutes ago. Started experiencing some crampy abdominal pain. Says he feels nauseated. No vomiting. No flatus or bowel activity yet. Patient has been drinking clear liquids. Says it does not feel like the pain he came in with. Tmax: 99.1. No labs from today yet. Objective - Vital Signs Vital signs: Vital Signs Temp 97.8 F 03/22/25 07:08 Pulse 75 03/22/25 07:08 Resp 18 03/22/25 07:08 BP 154/80 03/22/25 07:08 Pulse Ox 95 03/22/25 07:08 FiO2 Intake & Output 03/21/25 03/22/25 03/22/25 18:59 06:59 18:59 Intake Total 1620 600 Output Total 200 Balance 1420 600 Intake: Oral 1620 600 Output: Urine 200 Uretheral (Martell) 200 Other: Voiding Method Indwelling Catheter Indwelling Catheter # Voids 3 1 - Exam Abdomen: Soft, nondistended, mild incisional tenderness, incision clean and dry - Labs CBC & Chem 7: 03/20/25 06:18 03/20/25 06:18 Assessment and Plan (1) Gastric perforation Narrative/Plan: 64-year-old male with recent gastric perforation. Suspect ileus at this time given the patient's description of his symptoms today. Keep n.p.o. for now. Repeat abdominal x-ray tomorrow. Dulcolax suppository daily. Repeat labs. Current Visit: Yes Status: Acute Code(s): K25.5 - CHRONIC OR UNSPECIFIED GASTRIC ULCER WITH PERFORATION SNOMED Code(s): 133588714
--- NOTE | 2025-03-22 09:38 | P.PN ---
Subjective Progress Note Date: 03/21/25 Principal diagnosis: Reason for follow-up is perforated peptic ulcer disease/peritonitis Patient is a 64-year-old male with a past medical history significant for hypertension hyperlipidemia reflux vascular disease patient apparently has been dealing with abdominal pain diagnosed with perforated peptic ulcer disease status post laparotomy and repair of the perforated peptic ulcer. On today's evaluation that is 03/21/2025, the patient continues to be afebrile, the patient is on room air and breathing comfortably, the Pt denies having any chest pain or cough, the patient denies having any nausea or vomiting abdominal pain is currently controlled. No new lab has been obtained today Objective - Vital Signs Vital signs: Vital Signs Temp 98.1 F 03/21/25 12:07 Pulse 72 03/21/25 12:07 Resp 16 03/21/25 12:07 BP 194/89 03/21/25 12:07 Pulse Ox 95 03/21/25 12:07 FiO2 Intake & Output 03/20/25 03/21/25 03/21/25 18:59 06:59 18:59 Intake Total 590 Output Total 1350 1000 200 Balance -1350 -410 -200 Intake: Oral 590 Output: Urine 1350 1000 200 Uretheral (Martell) 200 Other: Voiding Method Indwelling Catheter Indwelling Catheter Indwelling Catheter - Exam GENERAL DESCRIPTION: Middle-age male lying in bed in no distress RESPIRATORY SYSTEM: Unlabored breathing , decreased breath sounds at bases HEART: S1 S2 regular rate and rhythm , ABDOMEN: Soft , mild distention and tenderness EXTREMITIES: No edema feet - Labs CBC & Chem 7: 03/20/25 06:18 03/20/25 06:18 Assessment and Plan (1) Peritonitis Current Visit: Yes Status: Acute Code(s): K65.9 - PERITONITIS, UNSPECIFIED SNOMED Code(s): 08032003 (2) Gastric perforation Current Visit: Yes Status: Acute Code(s): K25.5 - CHRONIC OR UNSPECIFIED GASTRIC ULCER WITH PERFORATION SNOMED Code(s): 337545418 (3) Leukocytosis Current Visit: Yes Status: Acute Code(s): D72.829 - ELEVATED WHITE BLOOD CELL COUNT, UNSPECIFIED SNOMED Code(s): 614956843 Plan: 1patient presented to hospital with severe abdominal pain in this patient has been diagnosed with a perforated peptic ulcer disease status post repair of the perforated gastric ulcer will need to go for the enteric gram-negative and Mira to be the likely pathogen involved any peritonitis associated with perforated gastric ulcer. 2patient is afebrile the patient white count has normalized no lab has been drawn today 3we will treat the patient with Zosyn 3.375 g every 8 hours and Eraxis while inpatient, monitor clinical course closely Dictation was produced using [employer] dictation software. please excuse any grammatical, word or spelling errors. Time with Patient: Less than 30
[2025-03-22] MEDS ORDERED: IPRATROPIUM-ALBUTEROL 3 ML NEB INHALATION PRN (14:29)
[2025-03-22 15:16] LABS: Basophils # (A) 0.03 10*3/uL (0.00-0.10); Basophils % (A) 0.3 %; Eosinophils # (A) 0.24 10*3/uL (0.04-0.35); Eosinophils % (A) 2.3 %; HCT 39.7 % (39.6-50.0); HGB 13.7 g/dL (13.0-17.0); Lymphocytes # (A) 2.15 10*3/uL (0.90-5.00); Lymphocytes % (A) 20.8 %; MCH 32.0 pg (27.0-32.0); MCHC 34.5 g/dL (32.0-37.0); MCV 92.8 fL (80.0-97.0); Monocytes # (A) 0.73 10*3/uL (0.20-1.00); Monocytes % (A) 7.1 %; Neutrophils # (A) 7.14 10*3/uL (1.80-7.70); Neutrophils % (A) 69.2 %; Platelet Count 257 10*3/uL (140-440); RBC 4.28 10*6/uL (4.40-5.60); RDW 13.6 % (11.5-14.5); WBC 10.32 10*3/uL (4.50-10.00)
--- NOTE | 2025-03-22 15:30 | P.PN ---
Subjective Progress Note Date: 03/22/25 Principal diagnosis: Reason for follow-up is perforated peptic ulcer disease/peritonitis Patient is a 64-year-old male with a past medical history significant for hypertension hyperlipidemia reflux vascular disease patient apparently has been dealing with abdominal pain diagnosed with perforated peptic ulcer disease status post laparotomy and repair of the perforated peptic ulcer. On today's evaluation that is 03/22/2024, patient did have a temperature of 97.8 F this morning and denies having any chills, patient is on room air and breathing comfortably no chest pain or cough, the patient did not have any nausea vomiting mention improvement abdominal pain and is passing gas. Patient white count is 10.32 Objective - Vital Signs Vital signs: Vital Signs Temp 97.2 F L 03/22/25 12:16 Pulse 86 03/22/25 12:16 Resp 18 03/22/25 12:16 BP 174/83 03/22/25 12:16 Pulse Ox 93 L 03/22/25 12:16 FiO2 Intake & Output 03/21/25 03/22/25 03/22/25 18:59 06:59 18:59 Intake Total 1620 600 Output Total 200 Balance 1420 600 Intake: Oral 1620 600 Output: Urine 200 Uretheral (Martell) 200 Other: Voiding Method Indwelling Catheter Indwelling Catheter Indwelling Catheter # Voids 3 1 - Exam GENERAL DESCRIPTION: Middle-age male lying in bed in no distress RESPIRATORY SYSTEM: Unlabored breathing , decreased breath sounds at bases HEART: S1 S2 regular rate and rhythm , ABDOMEN: Soft , mild distention and tenderness EXTREMITIES: No edema feet - Labs CBC & Chem 7: 03/22/25 15:05 03/20/25 06:18 Labs: Abnormal Lab Results - Last 24 Hours (Table) 03/22/25 Range/Units 15:05 WBC 10.32 H (4.50-10.00) 10*3/uL RBC 4.28 L (4.40-5.60) 10*6/uL MPV 8.8 L (9.5-12.2) fL Assessment and Plan (1) Peritonitis Current Visit: Yes Status: Acute Code(s): K65.9 - PERITONITIS, UNSPECIFIED SNOMED Code(s): 68896429 (2) Gastric perforation Current Visit: Yes Status: Acute Code(s): K25.5 - CHRONIC OR UNSPECIFIED GASTRIC ULCER WITH PERFORATION SNOMED Code(s): 521400137 (3) Leukocytosis Current Visit: Yes Status: Acute Code(s): D72.829 - ELEVATED WHITE BLOOD CELL COUNT, UNSPECIFIED SNOMED Code(s): 269711280 Plan: 1patient presented to hospital with severe abdominal pain in this patient has b een diagnosed with a perforated peptic ulcer disease status post repair of the perforated gastric ulcer will need to go for the enteric gram-negative and Mira to be the likely pathogen involved any peritonitis associated with perforated gastric ulcer. 2patient is afebrile the patient white count has normalized 3patient is currently being treated with Zosyn 3.375 g every 8 hours and Eraxis while inpatient, and continue supportive care Dictation was produced using [employer] dictation software. please excuse any grammatical, word or spelling errors. Time with Patient: Less than 30
[2025-03-22 15:42] LABS: African American GFR (CKD) 85 (>60 ml/min/1.73 sqM); Anion Gap 8 mmol/L; Blood Urea Nitrogen 9 mg/dL (9-20); Calcium 9.7 mg/dL (8.4-10.2); Carbon Dioxide 27 mmol/L (22-30); Chloride 100 mmol/L (98-107); Glucose 103 mg/dL (74-99); Non-African American GFR(CKD) 74 (>60 ml/min/1.73 sqM); Potassium 4.5 mmol/L (3.5-5.1); Sodium 135 mmol/L (137-145)
[2025-03-22] MEDS: amLODIPine 10 MG TAB PO SCH (17:01)
--- NOTE | 2025-03-22 17:03 | PN ---
PROGRESS NOTE DATE OF SERVICE: 03/22/2025 SUBJECTIVE: This is a 64-year-old gentleman admitted with perforated viscus and peritonitis, abdominal pain. Today after passing flatus, feeling better. No chest pain or palpitation. PAST MEDICAL HISTORY: Reviewed. REVIEW OF SYSTEMS: A 14-point review of systems negative except as mentioned earlier. CURRENT MEDICATIONS: Reviewed. PHYSICAL EXAMINATION: VITAL SIGNS: Pulse is 75, blood pressure 155/80, and respirations 18. CHEST: A few scattered rhonchi and crackles. ABDOMEN: Soft, mild diffuse distention status post surgery. Bowel sounds diminished. LEGS: No edema. NERVOUS SYSTEM: Nonfocal. LABORATORY DATA: Sodium 134. Rest of the labs are noted. ASSESSMENT: 1. Status post perforated peptic ulcer with peritonitis and surgery. 2. Bilateral atelectasis. 3. Hypertension. 4. Gastroesophageal reflux disease. 5. Hyperlipidemia. 6. History of coronary artery disease. RECOMMENDATIONS AND DISCUSSION: Recommend to continue current management and continue symptomatic treatment. Otherwise at this time, I would add bronchodilators, incentive spirometry. Monitor blood pressure closely, p.r.n. medications. 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 Guarded prognosis. Further recommendations to follow. MMODL / IJN: [id number] /
[2025-03-22] MEDS: IPRATROPIUM-ALBUTEROL 3 ML NEB INHALATION SCH (18:43)
--- NOTE | 2025-03-23 08:22 | P.PN ---
Subjective Progress Note Date: 03/23/25 Principal diagnosis: Perforated ulcer Patient doing better today. Says his pain resolved. He is very hungry. Somewhat depressed. Would like more to eat. Had a bowel movement with the suppository and a large amount of flatus he says. No longer feels bloated. Objective - Vital Signs Vital signs: Vital Signs Temp 97.8 F 03/23/25 07:08 Pulse 75 03/23/25 07:08 Resp 18 03/23/25 07:08 BP 148/72 03/23/25 07:08 Pulse Ox 95 03/23/25 07:08 FiO2 Intake & Output 03/22/25 03/23/25 03/23/25 18:59 06:59 18:59 Intake Total 1320 Balance 1320 Intake: Oral 1320 Other: Voiding Method Indwelling Catheter Indwelling Catheter # Voids 1 - Exam Abdomen: Soft, nondistended, mild incisional tenderness - Labs CBC & Chem 7: 03/22/25 15:05 03/22/25 15:05 Labs: Abnormal Lab Results - Last 24 Hours (Table) 03/22/25 03/22/25 Range/Units 15:05 15:05 WBC 10.32 H (4.50-10.00) 10*3/uL RBC 4.28 L (4.40-5.60) 10*6/uL MPV 8.8 L (9.5-12.2) fL Sodium 135 L (137-145) mmol/L Glucose 103 H (74-99) mg/dL Assessment and Plan (1) Gastric perforation Narrative/Plan: Patient doing better today. Advance to full liquids. Continue antibiotics and antiacid therapy. Ambulate. Current Visit: Yes Status: Acute Code(s): K25.5 - CHRONIC OR UNSPECIFIED GASTRIC ULCER WITH PERFORATION SNOMED Code(s): 422704117
[2025-03-23 10:04] LABS: Basophils # (A) 0.04 X 10*3/uL (0.00-0.10); Basophils % (A) 0.6 %; Eosinophils # (A) 0.28 X 10*3/uL (0.04-0.35); Eosinophils % (A) 3.9 %; HCT 36.8 % (39.6-50.0); HGB 12.5 g/dL (13.0-17.0); Immature Grans, Automated 0.40 %; Lymphocytes # (A) 2.19 X 10*3/uL (0.90-5.00); Lymphocytes % (A) 30.3 %; MCH 31.6 pg (27.0-32.0); MCHC 34.0 g/dL (32.0-37.0); MCV 93.2 FL (80.0-97.0); Monocytes # (A) 0.56 X 10*3/uL (0.20-1.00); Monocytes % (A) 7.7 %; NRBC Per 100 WBC 0 X 10*3/uL (0.00-0.01); Neutrophils # (A) 4.13 X 10*3/uL (1.80-7.70); Neutrophils % (A) 57.1 %; Platelet Count 251 X 10*3/uL (140-440); RBC 3.95 X 10*6/uL (4.40-5.60); RDW 13.5 % (11.5-14.5); WBC 7.23 X 10*3/uL (4.50-10.00)
[2025-03-23 10:33] LABS: ALT 28 U/L (10-49); AST 37 U/L (14-35); Albumin 3.3 g/dL (3.8-4.9); Albumin/Globulin Ratio 1.27 Ratio (1.60-3.17); Alkaline Phosphatase 88 U/L (41-126); Anion Gap 9.20 mmol/L (4.00-12.00); BUN/Creat Ratio 7.45 Ratio (12.00-20.00); Blood Urea Nitrogen 8.2 mg/dL (9.0-27.0); Calcium 8.6 mg/dL (8.7-10.3); Carbon Dioxide 25.8 mmol/L (21.6-31.8); Chloride 102 mmol/L (96-109); Globulin 2.6 g/dL (1.6-3.3); Glucose 92 mg/dL (70-110); Potassium 4.1 mmol/L (3.5-5.5); Sodium 137 mmol/L (135-145); Total Protein 5.9 g/dL (6.2-8.2)
--- NOTE | 2025-03-23 11:03 | XR ---
EXAMINATION TYPE: XR abdomen 2V DATE OF EXAM: 03/23/2025 10:48 AM COMPARISON: Plain film CLINICAL INDICATION: Male, 64 years old with history of Ileus; TECHNIQUE: Two views of the abdomen were obtained. FINDINGS: Gaseous distention throughout the colon and small bowel The bowel gas pattern is nonspecifi c without dilated loops of small or large bowel. . Fecal material and gas are demonstrated throughout the colon and rectum. There is no evidence for organomegaly or pneumoperitoneum. No acute osseous p rocess. No abnormal calcifications are present. Right upper quadrant course significance. Midline subcutaneous clips. IMPRESSION: Diffuse gaseous distention which could be compatible with ileus. Nonspecific bowel gas pattern withou t radiographic evidence for acute process. [facility], , 03/23/2025 11:01 AM
[2025-03-23] MEDS ORDERED: ACETAMINOPHEN TAB 325 MG TAB PO PRN (16:00)
--- NOTE | 2025-03-23 22:29 | PN ---
PROGRESS NOTE DATE OF SERVICE: 03/23/2025 SUBJECTIVE: This is a 64-year-old gentleman, who was admitted after perforated peptic ulcer, is improving significantly. No chest pain. No palpitation. Abdominal x-ray showed diffuse gaseous distention with ileus. OBJECTIVE: VITAL SIGNS: Pulse is 72, blood pressure 160/90, respirations 18. CHEST: Clear to auscultation. CARDIOVASCULAR: S1, S2. ABDOMEN: Soft. Mild diffuse distention. LABORATORY DATA: Noted. ASSESSMENT: 1. Status post perforated peptic ulcer with peritonitis and surgery. 2. Ileus postoperative. 3. Hypertension. 4. Bilateral atelectasis. 5. Gastroesophageal reflux disease. 6. Hyperlipidemia. 7. History of coronary artery disease. RECOMMENDATIONS AND DISCUSSION: Recommend to continue the current medications and continue symptomatic treatment. Otherwise, recommend addition of the blood pressure medications. Continue with bronchodilators. P.r.n. hydralazine. Closely follow with Surgery. Further recommendations to follow. MMODL / IJN: [id number] /
[2025-03-24 08:01] LABS: Basophils # (A) 0.04 X 10*3/uL (0.00-0.10); Basophils % (A) 0.6 %; Eosinophils # (A) 0.30 X 10*3/uL (0.04-0.35); Eosinophils % (A) 4.2 %; HCT 35.3 % (39.6-50.0); HGB 12.0 g/dL (13.0-17.0); Immature Grans, Automated 0.40 %; Lymphocytes # (A) 2.25 X 10*3/uL (0.90-5.00); Lymphocytes % (A) 31.4 %; MCH 31.8 pg (27.0-32.0); MCHC 34.0 g/dL (32.0-37.0); MCV 93.6 FL (80.0-97.0); Monocytes # (A) 0.58 X 10*3/uL (0.20-1.00); Monocytes % (A) 8.1 %; NRBC Per 100 WBC 0 X 10*3/uL (0.00-0.01); Neutrophils # (A) 3.97 X 10*3/uL (1.80-7.70); Neutrophils % (A) 55.3 %; Platelet Count 258 X 10*3/uL (140-440); RBC 3.77 X 10*6/uL (4.40-5.60); RDW 13.8 % (11.5-14.5); WBC 7.17 X 10*3/uL (4.50-10.00)
[2025-03-24 10:37] LABS: Anion Gap 9.60 mmol/L (4.00-12.00); BUN/Creat Ratio 7.00 Ratio (12.00-20.00); Blood Urea Nitrogen 7.7 mg/dL (9.0-27.0); Calcium 8.8 mg/dL (8.7-10.3); Carbon Dioxide 25.4 mmol/L (21.6-31.8); Chloride 101 mmol/L (96-109); Glucose 91 mg/dL (70-110); Potassium 4.3 mmol/L (3.5-5.5); Sodium 136 mmol/L (135-145)
--- NOTE | 2025-03-24 15:47 | P.PN ---
Subjective Progress Note Date: 03/24/25 Principal diagnosis: Perforated ulcer Patient doing well today. Denies abdominal pain. Bloating is improved. He did pass flatus and bowel movement today. He is hungry for solid food. White blood cell count 7.1. No fevers. Objective - Vital Signs Vital signs: Vital Signs Temp 98.0 F 03/24/25 12:03 Pulse 74 03/24/25 12:03 Resp 16 03/24/25 12:03 BP 135/75 03/24/25 12:03 Pulse Ox 96 03/24/25 12:03 FiO2 Intake & Output 03/23/25 03/24/25 03/24/25 18:59 06:59 18:59 Intake Total 1560 240 Balance 1560 240 Intake: Oral 1560 240 Other: Voiding Method Indwelling Catheter Toilet Toilet # Voids 3 - Exam Abdomen: Soft, nondistended, incision clean and dry, minimal tenderness - Labs CBC & Chem 7: 03/24/25 04:59 03/24/25 04:59 Labs: Abnormal Lab Results - Last 24 Hours (Table) 03/24/25 03/24/25 Range/Units 04:59 04:59 RBC 3.77 L (4.40-5.60) X 10*6/uL Hgb 12.0 L (13.0-17.0) g/dL Hct 35.3 L (39.6-50.0) % BUN 7.7 L (9.0-27.0) mg/dL BUN/Creatinine Ratio 7.00 L (12.00-20.00) Ratio Assessment and Plan (1) Gastric perforation Narrative/Plan: Patient doing well at this time. Advance to regular diet. Continue antibiotics and antiacid therapy. Possible discharge tomorrow. Current Visit: Yes Status: Acute Code(s): K25.5 - CHRONIC OR UNSPECIFIED GASTRIC ULCER WITH PERFORATION SNOMED Code(s): 092579838
--- NOTE | 2025-03-24 16:54 | P.PN ---
Subjective Progress Note Date: 03/23/25 Principal diagnosis: Reason for follow-up is perforated peptic ulcer disease/peritonitis Patient is a 64-year-old male with a past medical history significant for hypertension hyperlipidemia reflux vascular disease patient apparently has been dealing with abdominal pain diagnosed with perforated peptic ulcer disease status post laparotomy and repair of the perforated peptic ulcer. On today's evaluation that is 03/23/2025, Patient is afebrile patient is currently on room air and denies having any shortness of breath, the patient denies any chest pain or cough, the patient denies any nausea vomiting abdominal pain is currently controlled no bowel movement however mention passing gas. Patient white count is down to 7.23, creatinine is 1.1 Objective - Vital Signs Vital signs: Vital Signs Temp 98.0 F 03/23/25 12:13 Pulse 72 03/23/25 12:13 Resp 18 03/23/25 12:13 BP 166/90 03/23/25 12:13 Pulse Ox 95 03/23/25 12:13 FiO2 Intake & Output 03/22/25 03/23/25 03/23/25 18:59 06:59 18:59 Intake Total 1320 Balance 1320 Intake: Oral 1320 Other: Voiding Method Indwelling Catheter Indwelling Catheter Indwelling Catheter # Voids 1 - Exam GENERAL DESCRIPTION: Middle-age male lying in bed in no distress RESPIRATORY SYSTEM: Unlabored breathing , decreased breath sounds at bases HEART: S1 S2 regular rate and rhythm , ABDOMEN: Soft , mild distention and tenderness EXTREMITIES: No edema feet - Labs CBC & Chem 7: 03/24/25 04:59 03/24/25 04:59 Labs: Abnormal Lab Results - Last 24 Hours (Table) 03/23/25 03/23/25 Range/Units 04:41 04:41 RBC 3.95 L (4.40-5.60) X 10*6/uL Hgb 12.5 L (13.0-17.0) g/dL Hct 36.8 L (39.6-50.0) % BUN 8.2 L (9.0-27.0) mg/dL BUN/Creatinine Ratio 7.45 L (12.00-20.00) Ratio Calcium 8.6 L (8.7-10.3) mg/dL AST 37 H (14-35) U/L Total Protein 5.9 L (6.2-8.2) g/dL Albumin 3.3 L (3.8-4.9) g/dL Albumin/Globulin Ratio 1.27 L (1.60-3.17) Ratio Assessment and Plan (1) Peritonitis Current Visit: Yes Status: Acute Code(s): K65.9 - PERITONITIS, UNSPECIFIED SNOMED Code(s): 00954862 (2) Gastric perforation Current Visit: Yes Status: Acute Code(s): K25.5 - CHRONIC OR UNSPECIFIED GASTRIC ULCER WITH PERFORATION SNOMED Code(s): 691155774 (3) Leukocytosis Current Visit: Yes Status: Acute Code(s): D72.829 - ELEVATED WHITE BLOOD CELL COUNT, UNSPECIFIED SNOMED Code(s): 270089927 Plan: 1patient presented to hospital with severe abdominal pain in this patient has been diagnosed with a perforated peptic ulcer disease status post repair of the perforated gastric ulcer will need to go for the enteric gram-negative and Cand trinh to be the likely pathogen involved any peritonitis associated with perforated gastric ulcer. 2patient is afebrile the patient white count has normalized 3patient to continue treatment with Zosyn 3.375 g every 8 hours and Eraxis while inpatient, and monitor clinical course closely Dictation was produced using [employer] dictation software. please excuse any grammatical, word or spelling errors. Time with Patient: Less than 30
--- NOTE | 2025-03-24 16:55 | P.PN ---
Subjective Progress Note Date: 03/24/25 Principal diagnosis: Reason for follow-up is perforated peptic ulcer disease/peritonitis Patient is a 64-year-old male with a past medical history significant for hypertension hyperlipidemia reflux vascular disease patient apparently has been dealing with abdominal pain diagnosed with perforated peptic ulcer disease status post laparotomy and repair of the perforated peptic ulcer. On today's evaluation that is 03/24/2025, patient has been afebrile, patient is breathing comfortably and is currently on room air, patient denies having any chest pain and cough, patient denies nausea vomiting abdominal pain is currently controlled still no bowel movement. Patient white count 7.17, creatinine is 1.1 Objective - Vital Signs Vital signs: Vital Signs Temp 98.0 F 03/24/25 12:03 Pulse 74 03/24/25 12:03 Resp 16 03/24/25 12:03 BP 135/75 03/24/25 12:03 Pulse Ox 96 03/24/25 12:03 FiO2 Intake & Output 03/23/25 03/24/25 03/24/25 18:59 06:59 18:59 Intake Total 1560 720 Balance 1560 720 Intake: Oral 1560 720 Other: Voiding Method Indwelling Catheter Toilet Toilet # Voids 3 - Exam GENERAL DESCRIPTION: Middle-age male lying in bed in no distress RESPIRATORY SYSTEM: Unlabored breathing , decreased breath sounds at bases HEART: S1 S2 regular rate and rhythm , ABDOMEN: Soft , mild distention and tenderness EXTREMITIES: No edema feet - Labs CBC & Chem 7: 03/24/25 04:59 03/24/25 04:59 Labs: Abnormal Lab Results - Last 24 Hours (Table) 03/24/25 03/24/25 Range/Units 04:59 04:59 RBC 3.77 L (4.40-5.60) X 10*6/uL Hgb 12.0 L (13.0-17.0) g/dL Hct 35.3 L (39.6-50.0) % BUN 7.7 L (9.0-27.0) mg/dL BUN/Creatinine Ratio 7.00 L (12.00-20.00) Ratio Assessment and Plan (1) Peritonitis Current Visit: Yes Status: Acute Code(s): K65.9 - PERITONITIS, UNSPECIFIED SNOMED Code(s): 91482221 (2) Gastric perforation Current Visit: Yes Status: Acute Code(s): K25.5 - CHRONIC OR UNSPECIFIED GASTRIC ULCER WITH PERFORATION SNOMED Code(s): 957758884 (3) Leukocytosis Current Visit: Yes Status: Acute Code(s): D72.829 - ELEVATED WHITE BLOOD CELL COUNT, UNSPECIFIED SNOMED Code(s): 629756757 Plan: 1patient presented to hospital with severe abdominal pain in this patient has been diagnosed with a perforated peptic ulcer disease status post repair of the perforated gastric ulcer will need to go for the enteric gram-negative and Mira to be the likely pathogen involved any peritonitis associated with perforated gastric ulcer. 2patient is afebrile the patient white count has normalized 3patient to continue treatment with Zosyn 3.375 g every 8 hours and Eraxis while inpatient, and will finish therapy short course of oral Augmentin and Diflucan on discharge Dictation was produced using [employer] dictation software. please excuse any grammatical, word or spelling errors. Time with Patient: Less than 30
[2025-03-24] MEDS: FOLIC ACID 1 MG TAB PO SCH (17:09)
[2025-03-24] MEDS: MULTIVITAMINS, THERA 1 EACH TAB PO SCH (17:09)
[2025-03-24] MEDS: THIAMINE 100 MG TAB PO SCH (17:09)
--- NOTE | 2025-03-25 06:51 | P.PN ---
Subjective Progress Note Date: 03/24/25 - Reason for Consult Sepsis, peritonitis - History of Present Illness 64-year-old male came in with abdominal pain found to capitated peptic ulcer started on antibiotics Zosyn taken to underwent repair of the perforated peptic ulcer when I evaluate the patient patient was just coming out of anesthesia unable to get much of the history from the patient patient does have leukocytosis but no fever patient has history of NSAID use. Patient had a severe abdominal pain on admission. 03/19/2025 Patient seen in follow-up today reporting severe intense abdominal pain and does have a binder noted. Hypoactive bowel sounds and patient reports feels like he is starting to pass some minimal gas. Patient is urinating and denies any pain or burning. Patient is requesting when he can eat as he reports to feeling hungry. Continue n.p.o. for now per general surgery and to be advanced only by general surgery. Patient is maintained on hydration and sodium is slightly less, reduce the dose of hydration and will follow-up with repeat labs. Other home medications will be reviewed and resumed as appropriate. Encourage increase activity as tolerated 03/20/2025 Patient seen and evaluated this morning currently asleep although easily arousable. Patient remains n.p.o. maintained on gentle hydration and kidney functions maintained in sodium is improved at 134, patient continues to be n.p.o. we will follow-up on repeat labs and continue with gentle hydration until patient is being started on clear liquids. Possible clear liquids per surgery in 24 hours. Encouraged increased activity as tolerated and continuing with abdominal binder as needed. Continue incentive spirometer use at least 10 times every hour while awake. 03/21/2025 Patient seen and evaluated in follow-up and per nursing staff has just had indwelling Martell catheter removed this morning and patient has been encouraged to get up and increase activity as tolerated. Continue with abdominal binder and extremely hypoactive bowel sounds noted. Surgical incision is dry with prevana wound VAC noted with good suction. Abdomen mildly distended and somewhat tender on palpation. Encouraged incentive spirometer use at least 10 t imes every hour while awake. Surgery discussing initiating clear liquid diet today. Infectious disease following as well maintained on antibiotics. We will continue to follow with general surgery. 03/24/2025 Patient seen in follow-up today with no acute overnight issues noted. Patient is asking when he gets to go home. Up to general surgery as well as infectious disease regarding discharge planning. Patient maintained on Eraxis and will likely transition to oral antibiotics on discharge. Patient reports is passing gas and tolerating diet and is being advanced slowly. Patient is afebrile with no reports of chest pain or shortness of breath. Patient denies any nausea or vomiting and continues with intermittent mild abdominal pain although significantly improved from previous. Patient with midline abdominal incision kaylin are intact with no obvious drainage, redness, or surrounding cellulitis noted. Review of systems: Constitutional: No reports of fatigue, no fever, or chills Cardiovascular: No reports of chest pain or palpitations Respiratory: No reports of shortness of breath or cough GI: No further reports of intermittent nausea, no vomiting, no diarrhea, reports passing gas : No reports of dysuria or retention Neurovascular: reports of generalized weakness All medications have been reviewed PHYSICAL EXAMINATION: GENERAL: The patient is asleep although easily arousable, awake, alert and oriented x 3. Well developed, thin built, elderly appearing HEENT: Pupils are round and equally reacting to light. EOMI. No scleral icterus. No conjunctival pallor. Normocephalic, atraumatic. No pharyngeal erythema. No thyromegaly. CARDIOVASCULAR: S1 and S2 muffled PULMONARY: Diminished breath sounds bilaterally otherwise chest is clear to auscultation, no wheezing or crackles. ABDOMEN: Abdominal binder in place with less tenderness on palpation, bowel sounds noted MUSCULOSKELETAL: No joint swelling or deformity. EXTREMITIES: No cyanosis, clubbing, or pedal edema. NEUROLOGICAL: Gross neurological examination did not reveal any focal deficits. Diffusely weak SKIN: No rashes. Assessment: -Perforated peptic ulcer with peritonitis: status post repair of the perforation 03/18/2025 - Gastroesophageal reflux disease, NSAID use leading to severe peptic ulcer disease - Hypertension history, currently normotensive - Hyperlipidemia - Three-vessel disease history -Benign prostatic hypertrophy -Continued ongoing nicotine use counseling will be provided - Depression history - Hypovolemic hyponatremia, improved - GI prophylaxis -DVT prophylaxis: As per primary service - Full code Plan: Patient is admitted under general surgery status post gastric ulcer repair Patient is currently with diet being advanced per general surgery and tolerating requesting when he can go home. Will await surgical input as they are admitting and attending Encourage increase activity as tolerated. Recommend frequent walking as tolerated, bowel sounds are noted Will follow-up on repeat labs, replace electrolytes per protocol Continue bowel regimen per general surgery Infectious disease following contained on IV antibiotics and will transition to oral antibiotics on discharge. Continue to use incentive spirometer at least 10 times every hour while awake Thank you kindly for this consultation. We will continue to follow general surgery during hospitalization. The impression and plan of care has been dictated by Eliane Bertrand, Nurse Practitioner as directed. Dr. Saran MD I have performed a history and examination and MDM of this patient, discussed the same with the dictator, and agree with the dictator's assessment and plan as written ,documented as a scribe. Based on total visit time, I have performed more than 50% of the visit. Objective - Vital Signs Vital signs: Vital Signs Temp 98.0 F 03/24/25 12:03 Pulse 74 03/24/25 12:03 Resp 16 03/24/25 12:03 BP 135/75 03/24/25 12:03 Pulse Ox 96 03/24/25 12:03 FiO2 Intake & Output 03/23/25 03/24/25 03/24/25 18:59 06:59 18:59 Intake Total 1560 720 Balance 1560 720 Intake: Oral 1560 720 Other: Voiding Method Indwelling Catheter Toilet Toilet # Voids 3 - Labs CBC & Chem 7: 03/24/25 04:59 03/24/25 04:59 Labs: Abnormal Lab Results - Last 24 Hours (Table) 03/24/25 03/24/25 Range/Units 04:59 04:59 RBC 3.77 L (4.40-5.60) X 10*6/uL Hgb 12.0 L (13.0-17.0) g/dL Hct 35.3 L (39.6-50.0) % BUN 7.7 L (9.0-27.0) mg/dL BUN/Creatinine Ratio 7.00 L (12.00-20.00) Ratio
[2025-03-25] MEDS ORDERED: HYDROcodone/APAP 5-325MG 1 EACH TAB PO PRN (08:10)
--- NOTE | 2025-03-25 12:04 | P.DS ---
Providers Date of admission: 03/18/25 01:06 Expected date of discharge: 03/25/25 Attending physician: Fahad Galvan Consults: 03/18/25 08:03 Consult Physician Routine Consulting Provider: Berry Dangelo Consult Reason/Comments: medical management Do you want consulting provider notified?: Yes 03/18/25 12:17 Consult Physician Routine Consulting Provider: Juli Munguia Consult Reason/Comments: Perforated gastric ulcer Do you want consulting provider notified?: Yes Primary care physician: [facility] Course: Discharge diagnosis 1. Perforated gastric ulcer Hospital course This is a 64-year-old male who presented the hospital with epigastric abdominal pain and history of NSAID use. CT scan had reported contained perforated gastric ulcer. Patient is status post repair of gastric ulcer. His pain is controlled. He is tolerating diet. He is having bowel movements. He is afebrile. He has been up and ambulating. He is stable for discharge. Please refer to chart for any further details. Physician Hull Molder note has been reviewed by physician. Signing provider agrees with the documented findings, assessment, and plan of care. Patient Condition at Discharge: Stable Plan - Discharge Summary New Discharge Prescriptions: New Pantoprazole Sodium [Protonix] 40 mg PO BID #60 tab Fluconazole [Diflucan] 200 mg PO DAILY #7 tablet Acetaminophen Tab [Tylenol Tab] 650 mg PO Q4H PRN #30 tablet PRN Reason: Pain Amoxic-Pot Clav 875-125Mg [Augmentin 875-125] 1 tab PO Q12HR 7 Days #14 tab Continue amLODIPine [Norvasc] 5 mg PO BID Atorvastatin [Lipitor] 80 mg PO HS Aspirin 81 mg PO DAILY Vitamin D3 (Unkown Strength) 1 dose PO DAILY Sertraline [Zoloft] 100 mg PO DAILY Sildenafil Citrate [Viagra] 100 mg PO DAILY PRN PRN Reason: 1 HR PRIOR TO SEXUAL ACTIVITY ALPRAZolam [Xanax] 0.25 mg PO DAILY PRN PRN Reason: Anxiety lisinopriL [Prinivil] 20 mg PO BID Varenicline [Chantix Continuing Pack] 1 mg PO BID Rifaximin [Xifaxan] 550 mg PO BID Co Q-10 (Unkown Strength) 1 dose PO DAILY Tretinoin [Tretinoin 0.025%] 1 applic TOPICAL HS Cyclobenzaprine [Flexeril] 10 mg PO Q8H PRN PRN Reason: Muscle Pain Discontinued Celecoxib [CeleBREX] 200 mg PO BID Discharge Medication List Atorvastatin [Lipitor] 80 mg PO HS 10/18/20 [History] amLODIPine [Norvasc] 5 mg PO BID 10/18/20 [History] ALPRAZolam [Xanax] 0.25 mg PO DAILY PRN 07/09/21 [History] Aspirin 81 mg PO DAILY 07/09/21 [History] lisinopriL [Prinivil] 20 mg PO BID 07/09/21 [History] Co Q-10 (Unkown Strength) 1 dose PO DAILY 03/18/25 [History] Cyclobenzaprine [Flexeril] 10 mg PO Q8H PRN 03/18/25 [History] Rifaximin [Xifaxan] 550 mg PO BID 03/18/25 [History] Sertraline [Zoloft] 100 mg PO DAILY 03/18/25 [History] Sildenafil Citrate [Viagra] 100 mg PO DAILY PRN 03/18/25 [History] Tretinoin [Tretinoin 0.025%] 1 applic TOPICAL HS 03/18/25 [History] Varenicline [Chantix Continuing Pack] 1 mg PO BID 03/18/25 [History] Vitamin D3 (Unkown Strength) 1 dose PO DAILY 03/18/25 [History] Acetaminophen Tab [Tylenol Tab] 650 mg PO Q4H PRN #30 tablet 03/25/25 [Rx] Amoxic-Pot Clav 875-125Mg [Augmentin 875-125] 1 tab PO Q12HR 7 Days #14 tab 03/25/25 [Rx] Fluconazole [Diflucan] 200 mg PO DAILY #7 tablet 03/25/25 [Rx] Pantoprazole Sodium [Protonix] 40 mg PO BID #60 tab 03/25/25 [Rx] Follow up Appointment(s)/Referral(s): Yaya Rojas DO [Primary Care Provider] - 1-2 days Fahad Galvan MD [STAFF PHYSICIAN] - 1 Week Activity/Diet/Wound Care/Special Instructions: No lifting over 10 pounds Shower daily. No soaking or tub baths for 2 weeks Very light activity until you are reevaluated at your follow up appointment with your surgeon Discharge Disposition: HOME SELF-CARE
[2025-03-25 12:09] VITALS: BP 117/71; PULSE 67; RESP 16; TEMP 98.2
--- NOTE | 2025-03-25 14:28 | P.PN ---
Subjective Progress Note Date: 03/25/25 Principal diagnosis: Reason for follow-up is perforated peptic ulcer disease/peritonitis Patient is a 64-year-old male with a past medical history significant for hypertension hyperlipidemia reflux vascular disease patient apparently has been dealing with abdominal pain diagnosed with perforated peptic ulcer disease status post laparotomy and repair of the perforated peptic ulcer. On today's evaluation that is 03/25/2025, Patient is afebrile this morning patient denies having any chest pain shortness of breath or cough, the patient is currently on room air, patient denies any abdominal pain no diarrhea no nausea no vomiting, feeling better wants to go home. No new lab has been obtained today Objective - Vital Signs Vital signs: Vital Signs Temp 98.2 F 03/25/25 12:09 Pulse 67 03/25/25 12:09 Resp 16 03/25/25 12:09 BP 117/71 03/25/25 12:09 Pulse Ox 97 03/25/25 12:09 FiO2 Intake & Output 03/24/25 03/25/25 03/25/25 18:59 06:59 18:59 Intake Total 2538 1320 Balance 2538 1320 Intake: Oral 2538 1320 Other: Voiding Method Toilet Toilet # Voids 5 3 3 # Bowel Movements 1 1 - Exam GENERAL DESCRIPTION: Middle-age male lying in bed in no distress RESPIRATORY SYSTEM: Unlabored breathing , decreased breath sounds at bases HEART: S1 S2 regular rate and rhythm , ABDOMEN: Soft , mild distention and tenderness EXTREMITIES: No edema feet - Labs CBC & Chem 7: 03/24/25 04:59 03/24/25 04:59 Assessment and Plan (1) Peritonitis Status: Acute Code(s): K65.9 - PERITONITIS, UNSPECIFIED SNOMED Code(s): 88534024 (2) Gastric perforation Status: Acute Code(s): K25.5 - CHRONIC OR UNSPECIFIED GASTRIC ULCER WITH PERFORATION SNOMED Code(s): 059168791 (3) Leukocytosis Status: Acute Code(s): D72.829 - ELEVATED WHITE BLOOD CELL COUNT, UNSPECIFIED SNOMED Code(s): 075793955 Plan: 1patient presented to hospital with severe abdominal pain in this patient has been diagnosed with a perforated peptic ulcer disease status post repair of the perforated gastric ulcer will need to go for the enteric gram-negative and Mira to be the likely pathogen involved any peritonitis associated with perforated gastric ulcer. 2patient is afebrile the patient white count has normalized 3patient has shown clinical improvement will finish therapy short course of oral Augmentin and Diflucan x 7 days on discharge, discussed with CONSOLE OPERATOR for admitting working on discharge Dictation was produced using [employer] dictation software. please excuse any grammatical, word or spelling errors. Time with Patient: Less than 30
--- NOTE | 2025-03-27 00:54 | P.PN ---
Subjective Progress Note Date: 03/25/25 - Reason for Consult Sepsis, peritonitis - History of Present Illness 64-year-old male came in with abdominal pain found to capitated peptic ulcer started on antibiotics Zosyn taken to underwent repair of the perforated peptic ulcer when I evaluate the patient patient was just coming out of anesthesia unable to get much of the history from the patient patient does have leukocytosis but no fever patient has history of NSAID use. Patient had a severe abdominal pain on admission. 03/19/2025 Patient seen in follow-up today reporting severe intense abdominal pain and does have a binder noted. Hypoactive bowel sounds and patient reports feels like he is starting to pass some minimal gas. Patient is urinating and denies any pain or burning. Patient is requesting when he can eat as he reports to feeling hungry. Continue n.p.o. for now per general surgery and to be advanced only by general surgery. Patient is maintained on hydration and sodium is slightly less, reduce the dose of hydration and will follow-up with repeat labs. Other home medications will be reviewed and resumed as appropriate. Encourage increase activity as tolerated 03/20/2025 Patient seen and evaluated this morning currently asleep although easily arousable. Patient remains n.p.o. maintained on gentle hydration and kidney functions maintained in sodium is improved at 134, patient continues to be n.p.o. we will follow-up on repeat labs and continue with gentle hydration until patient is being started on clear liquids. Possible clear liquids per surgery in 24 hours. Encouraged increased activity as tolerated and continuing with abdominal binder as needed. Continue incentive spirometer use at least 10 times every hour while awake. 03/21/2025 Patient seen and evaluated in follow-up and per nursing staff has just had indwelling Martell catheter removed this morning and patient has been encouraged to get up and increase activity as tolerated. Continue with abdominal binder and extremely hypoactive bowel sounds noted. Surgical incision is dry with prevana wound VAC noted with good suction. Abdomen mildly distended and somewhat tender on palpation. Encouraged incentive spirometer use at least 10 t imes every hour while awake. Surgery discussing initiating clear liquid diet today. Infectious disease following as well maintained on antibiotics. We will continue to follow with general surgery. 03/24/2025 Patient seen in follow-up today with no acute overnight issues noted. Patient is asking when he gets to go home. Up to general surgery as well as infectious disease regarding discharge planning. Patient maintained on Eraxis and will likely transition to oral antibiotics on discharge. Patient reports is passing gas and tolerating diet and is being advanced slowly. Patient is afebrile with no reports of chest pain or shortness of breath. Patient denies any nausea or vomiting and continues with intermittent mild abdominal pain although significantly improved from previous. Patient with midline abdominal incision kaylin are intact with no obvious drainage, redness, or surrounding cellulitis noted. 03/25/2025 Patient is seen and evaluated in follow-up this morning currently getting dressed as patient reports he is discharging home today. Patient to continue on oral antibiotics patient has been cleared by general surgery and will continue current diet and close outpatient follow-up within the next week. Patient is medically stable once cleared by patient has been instructed to follow-up with his primary care provider on discharge. Patient is afebrile with no reports of chest pain or shortness of breath. Patient reports is tolerating diet with diffuse abdominal pain position changes. Review of systems: Constitutional: No reports of fatigue, no fever, or chills Cardiovascular: No reports of chest pain or palpitations Respiratory: No reports of shortness of breath or cough GI: No further reports of intermittent nausea, no vomiting, no diarrhea, reports passing gas : No reports of dysuria or retention Neurovascular: reports of generalized weakness All medications have been reviewed PHYSICAL EXAMINATION: GENERAL: The patient is awake, alert and oriented x 3. Well developed, thin built, elderly appearing HEENT: Pupils are round and equally reacting to light. EOMI. No scleral icterus. No conjunctival pallor. Normocephalic, atraumatic. No pharyngeal erythema. No thyromegaly. CARDIOVASCULAR: S1 and S2 muffled PULMONARY: Diminished breath sounds bilaterally otherwise chest is clear to auscultation, no wheezing or crackles. ABDOMEN: Abdominal binder in place with less tenderness on palpation, bowel sounds noted MUSCULOSKELETAL: No joint swelling or deformity. EXTREMITIES: No cyanosis, clubbing, or pedal edema. NEUROLOGICAL: Gross neurological examination did not reveal any focal deficits. Diffusely weak SKIN: No rashes. Assessment: -Perforated peptic ulcer with peritonitis: status post repair of the perforation 03/18/2025 - Gastroesophageal reflux disease, NSAID use leading to severe peptic ulcer disease - Hypertension history, currently normotensive - Hyperlipidemia - Three-vessel disease history -Benign prostatic hypertrophy -Continued ongoing nicotine use counseling will be provided - Depression history - Hypovolemic hyponatremia, improved - GI prophylaxis -DVT prophylaxis: As per primary service - Full code Plan: Patient is admitted under general surgery status post gastric ulcer repair Patient is currently with diet being advanced per general surgery and tolerating. Surgery working on discharge planning today Encourage increase activity as tolerated. Recommend frequent walking as tolerated, bowel sounds are noted Recommend outpatient labs to monitor kidney functions and electrolytes Continue bowel regimen per general surgery Infectious disease following contained on IV antibiotics and transitioning to oral antibiotics on discharge. Continue to use incentive spirometer at least 10 times every hour while awake Patient is medically stable and cleared by general surgery and infectious disease Thank you kindly for this consultation. We will continue to follow general surgery during hospitalization. The impression and plan of care has been dictated by Eliane Bertrand, Nurse Practitioner as directed. Dr. Saran MD I have performed a history and examination and MDM of this patient, discussed the same with the dictator, and agree with the dictator's assessment and plan as written ,documented as a scribe. Based on total visit time, I have performed more than 50% of the visit. Objective - Vital Signs Vital signs: Vital Signs Temp 98.2 F 03/25/25 12:09 Pulse 67 03/25/25 12:09 Resp 16 03/25/25 12:09 BP 117/71 03/25/25 12:09 Pulse Ox 97 03/25/25 12:09 FiO2 - Labs CBC & Chem 7: 03/24/25 04:59 03/24/25 04:59
== END 2025-03-25 12:43 | disposition home or self-care (01) | DRG 326 ==
LOC: EC 19:25 → 5NMEDONC 03-18 01:06
PROVIDERS: ADMIT Surgery; ATTEND Surgery
PROC: 0DQ70ZZ Repair Stomach, Pylorus, Open Approach (ICD-10-PCS; principal; 2025-03-18 11:35)
DX: K25.5 Chronic or unspecified gastric ulcer with perforation (principal); K65.9 Peritonitis, unspecified; I10 Essential (primary) hypertension; F32.A Depression, unspecified; K56.7 Ileus, unspecified; E87.1 Hypo-osmolality and hyponatremia; E78.5 Hyperlipidemia, unspecified; E86.1 Hypovolemia; Z79.1 Long term (current) use of non-steroidal anti-inflammatories (NSAID); I25.10 Atherosclerotic heart disease of native coronary artery without angina pectoris; H91.90 Unspecified hearing loss, unspecified ear; K21.9 Gastro-esophageal reflux disease without esophagitis; N40.0 Benign prostatic hyperplasia without lower urinary tract symptoms; Z79.01 Long term (current) use of anticoagulants; Z79.82 Long term (current) use of aspirin; Z79.899 Other long term (current) drug therapy; Z82.49 Family history of ischemic heart disease and other diseases of the circulatory system
CPT/HCPCS: 36415; 64468; 71045; 74019; 74174; 80048; 80053; 82150; 83605; 83690; 83735; 85025; 85610; 85730; 93005; 96365; 96372; 96375; 99285

== ENCOUNTER 2025-04-18 13:20 | Emergency (ER) | payer BC, MEDICARE ==
[2025-04-18 13:40] VITALS: BP 155/77; PULSE 70; RESP 22; TEMP 97.9
--- NOTE | 2025-04-18 13:45 | ED ---
Psych HPI - General Source: patient, family, police Mode of arrival: ambulatory <Eliane Chase - Last Filed: 04/18/25 20:19> <Sayda - Last Filed: 04/19/25 11:26> - General Chief Complaint: Psychiatric Symptoms Stated Complaint: Petition Time Seen by Provider: 04/18/25 13:43 - History of Present Illness Initial Comments: 64-year-old male with CAD, GERD, hyperlipidemia, hypertension, PAD, perforated gastric ulcer due to chronic NSAID use status postrepair, daily marijuana use here for excision by family. Per son, patient has had different behaviors since his discharge from surgery on 03/25. He had an incident of going house to house to aggressively yell and swear at his neighbors. He also has had his sign a text that tangential thoughts about diagnosis that he does not have and then would switch to discussing his childhood trauma. He also mentioned that the patient had gone to a bathroom at a rest stop because he would "pop all his pills" in which [employer]'s had to escort him for his safety. Also has no tremors and difficulty word finding. Per patient, he has uncontrolled pain from surgery and has mentioned that because of this pain "anybody could go suicidal". He is on oral morphine, gabapentin, xanax on discharge. He denies having suicidal ideation or homicidal ideation, recent trauma, recent fall, headaches. (Eliane Chase) - Related Data Home Medications Medication Instructions Recorded Confirmed Atorvastatin [Lipitor] 80 mg PO HS 10/18/20 04/18/25 Aspirin 81 mg PO DAILY 07/09/21 04/18/25 lisinopriL [Prinivil] 20 mg PO DAILY PRN 07/09/21 04/18/25 Co Q-10 (Unkown Strength) 1 dose PO DAILY 03/18/25 04/18/25 Cyclobenzaprine [Flexeril] 10 mg PO Q8H PRN 03/18/25 04/18/25 Rifaximin [Xifaxan] 550 mg PO BID 03/18/25 04/18/25 Sertraline [Zoloft] 100 mg PO DAILY 03/18/25 04/18/25 Sildenafil Citrate [Viagra] 100 mg PO DAILY PRN 03/18/25 04/18/25 Tretinoin [Tretinoin 0.025%] 1 applic TOPICAL HS 03/18/25 04/18/25 Varenicline [Chantix Continuing 1 mg PO BID 03/18/25 04/18/25 Pack] Vitamin D3 (Unkown Strength) 1 dose PO DAILY 03/18/25 04/18/25 ALPRAZolam [Xanax] 0.5 mg PO DAILY PRN 04/18/25 04/18/25 Gabapentin 300 mg PO HS 04/18/25 04/18/25 Previous Rx's Medication Instructions Recorded Acetaminophen Tab [Tylenol Tab] 650 mg PO Q4H PRN #30 tablet 03/25/25 Pantoprazole Sodium [Protonix] 40 mg PO BID #60 tab 03/25/25 Allergies Allergy/AdvReac Type Severity Reaction Status Date / Time No Known Allergies Allergy Verified 04/18/25 16:55 Review of Systems ROS Other: All systems not noted in ROS Statement are negative. <Eliane Chase - Last Filed: 04/18/25 20:19> ROS Other: All systems not noted in ROS Statement are negative. <Sayda Morris - Last Filed: 04/19/25 11:26> ROS Statement: Those systems with pertinent positive or pertinent negative responses have been documented in the HPI. Past Medical History Past Medical History: Chest Pain / Angina, GERD/Reflux, Hearing Disorder / Deafness, Hyperlipidemia, Hypertension, Prostate Disorder, Vascular Disorder Additional Past Medical History / Comment(s): Severe aortic blockage below renal artery-has been seen at [facility], [facility] and [facility], chronic bilateral leg pain since 4 years old, likely related to aortic blockage; bilateral hands/feet numbness and tingling, optic migraines, sepsis in 2015, 2 lesions in throat, arthritis in lower back and ankles, enlarged prostate, sepsis History of Any Multi-Drug Resistant Organisms: None Reported Past Surgical History: Cholecystectomy Additional Past Surgical History / Comment(s): Microlaryngoscopy 11-28-18,Colonoscopy, anal fissure repair, colonoscopy with benign polypectomy Past Anesthesia/Blood Transfusion Reactions: No Reported Reaction Additional Past Anesthesia/Blood Transfusion Reaction / Comment(s): states has experienced balance issues after anesthesia Past Psychological History: Depression Smoking Status: Current every day smoker Past Alcohol Use History: None Reported Past Drug Use History: Marijuana - Past Family History Mother Family Medical History: No Reported History Sister(s) Family Medical History: Cancer Additional Family Medical History / Comment(s): breast Father Family Medical History: Hyperlipidemia, Hypertension, Myocardial Infarction (NH) Additional Family Medical History / Comment(s): cad <Tri Chaseica - Last Filed: 04/18/25 20:19> General Exam Limitations: no limitations <Tri Chaseica - Last Filed: 04/18/25 20:19> - General Exam Comments Initial Comments: Physical examination: Vital signs reviewed General: non toxic, no distress, appears at stated age Head: atraumatic, normocephalic, symmetric Eyes: Anicteric, EOMI, PERRLA Mouth: no lip lesion, mucus membranes moist Neck: Supple, trachea midline, no lesions or masses noted Cardiovascular: S1S2 reg, no murmur Lungs: CTA bilateral, no rhonchi, no rales, no accessory muscle use Abdominal: soft, nondistended, nontender to palpation, no guarding Ext: muscle strength 5 out of 5 in all 4 extremities grossly, no gross muscle atrophy, no contractures, positive dorsalis pedis pulse bilateral, no edema, noted tremors in the middle of speech Neuro: no gross focal neuro deficits, cranial nerves I through XII intact grossly Psych: Alert and oriented x3, anxious affect and mood (SalvatoreTri normanica) Course Vital Signs 04/18/25 13:32 Temperature 97.9 F Pulse Rate 70 Respiratory 22 Rate Blood Pressure 155/77 O2 Sat by Pulse 96 Oximetry Medical Decision Making - Lab Data Result diagrams: 04/18/25 14:47 04/18/25 14:47 <Eliane Chase - Last Filed: 04/18/25 20:19> - Lab Data Result diagrams: 04/18/25 14:47 04/18/25 14:47 <Sayda Morris - Last Filed: 04/19/25 11:26> - Medical Decision Making Was pt. sent in by a medical professional or institution (, PA, WASTEWATER TECHNICIAN, urgent care, hospital, or usp...) When possible be specific @ -No Did you speak to anyone other than the patient for history (EMS, parent, family, police, friend...)? What history was obtained from this source @ -Son at bedside Did you review nursing and triage notes (agree or disagree)? Why? @ -I reviewed and agree with nursing and triage notes Were old charts reviewed (outside hosp., previous admission, EMS record, old EKG, old radiological studies, urgent care reports/EKG's, usp records)? Report findings @ -Old charts reviewed Differential Diagnosis? @ -Differential Mental Health Depression, anxiety, bipolar, psychosis, schizophrenia, borderline personality, situational depression, adjustment disorder, behavioral disorder, brain tumor, malingering, substance abuse, encephalopathy, medication reaction, dementia, hypothyroidism, degenerative neurologic disorder, lupus.... This is not meant to be all-inclusive list EKG interpreted by me (3pts min.). @ -As above X-rays interpreted by me (1pt min.). @ -None done CT interpreted by me (1pt min.). @ -None done U/S interpreted by me (1pt. min.). @ -None done What testing was considered but not performed or refused? (CT, X-rays, U/S, labs)? Why? @ -None What meds were considered but not given or refused? Why? @ -None Did you discuss the management of the patient with other professionals ( professionals i.e. , PA, WASTEWATER TECHNICIAN, lab, RT, psych nurse, psychiatric social worker, co founder and chief strategy officer, teacher, command and control officer, returned case inspector)? Give summary @ -Dr. Morris, supervising physician Was smoking cessation discussed for >3mins.? @ -No Was critical care preformed (if so, how long)? @ -No Were there social determinants of health that impacted care today? How? (Homelessness, low income, unemployed, alcoholism, drug addiction, transportation, low edu. Level, literacy, decrease access to med. care, half-way, rehab)? @ -No Was there de-escalation of care discussed even if they declined (Discuss DNR or withdrawal of care, Hospice)? DNR status @ -No What co-morbidities impacted this encounter? (DM, HTN, Smoking, COPD, CAD, Cancer, CVA, ARF, Chemo, Hep., AIDS, mental health diagnosis, sleep apnea, morbid obesity)? @ -None Was patient admitted / discharged? Hospital course, mention meds given and route, prescriptions, significant lab abnormalities, going to OR and other pertinent info. @ -Discharge. Ordered CT brain, EKG and labs. CT brain without contrast showed no acute intracranial process. Labs were unremarkable except for a Hemoglobin of 12.9. UDS, serum alcohol, salicylate, acetaminophen negative. EPS evaluated patient and discussed that he is not eligible for inpatient criteria and may be discharged home. Spoke with patient and patient's about discharging patient home and both verbalized understanding and agreement of being discharged home. Patient is advised to discontinue marijuana use but patient does not want to and has verbalized understanding risks of continuing with marijuana use. He is advised to follow-up with his PCP for further management. Undiagnosed new problem with uncertain prognosis? @ -[No] Drug Therapy requiring intensive monitoring for toxicity (Heparin, Nitro, I nsulin, Cardizem)? @ -No Were any procedures done? @ -No Diagnosis/symptom? @ -Default Acute, or Chronic, or Acute on Chronic? @ -Default Uncomplicated (without systemic symptoms) or Complicated (systemic symptoms)? @ -Default Side effects of treatment? @ -No Exacerbation, Progression, or Severe Exacerbation? @ -No Poses a threat to life or bodily function? How? (Chest pain, [place], NH, pneumonia, PE, COPD, DKA, ARF, appy, cholecystitis, CVA, Diverticulitis, Homicidal, Suicidal, threat to staff... and all critical care pts) @ -[No] (Eliane Chase) I personally saw the patient and performed the critical portion of the service. I discussed the patient care with the resident physician. I directed management, care planning and final disposition of the patient. This includes, but not limited to, review of all lab work, radiological studies, EKG's, consultations, vital signs, and nursing notes. 64-year-old female with a past medical history of depression presenting on petition from his family for "aggressive behavior and suicidal ideation". On my assessment patient is well-appearing in no acute distress. He does have somewhat tangential speech however is otherwise calm and cooperative. Noted above, states that patient had made suicidal comments due to uncontrolled pain however he states his pain is now controlled after being on gabapentin and currently denies suicidal ideation or homicidal ideation/thoughts of harming himself or harming others. He states he is anxious because he does not want to be placed in the psychiatric unit and would prefer to be with his . Patient has no documented history of prior similar behaviors so medical workup was ob tained prior to EPS evaluation. Labs and imaging overall reassuring. Patient was seen by EPS and ultimately recommended for discharge home after discussion between EPS RN and psychiatrist. I did call EPS RN to discuss patient from and concerns from family. Reported she would call patient's and confirm she is comfortable with patient returning home. Resident physician also contacted his who confirmed she was comfortable with patient being discharged. On my reassessment patient is resting comfortably, he is eager to be discharged and again denies SI/HI. Ptwill be discharged home with his and will follow up with his therapist. EKG interpreted by me (3pts min.) @Sinus bradycardia, rate 55 beats a minute intervals within acceptable limits, normal axis, no significant ST elevations or depressions, no arrhythmia CT interpreted by me ( 1pt min.) @Personally reviewed CT brain-no evidence of hemorrhage or mass effect I agree with radiologist interpretation Critical care time of [0] minutes excluding separately billable procedures was spent in conjunction with critical care activities provided by the Resident and Attending simultaneously. I was present during [no procedures] for all critical portions of the procedure and as immediately available to furnish service during the entire procedure. (Sayda Morris) - Lab Data Lab Results 04/18/25 04/18/25 04/18/25 Range/Units 14:47 14:47 14:51 WBC 9.07 (4.50-10.00) 10*3/uL RBC 3.95 L (4.40-5.60) 10*6/uL Hgb 12.9 L (13.0-17.0) g/dL Hct 36.5 L (39.6-50.0) % MCV 92.4 (80.0-97.0) fL MCH 32.7 H (27.0-32.0) pg MCHC 35.3 (32.0-37.0) g/dL Plt Count 271 (140-440) 10*3/uL MPV 9.4 L (9.5-12.2) fL Immature Gran % (Auto) 0.3 % Neutrophils % 66.6 % Lymphocytes % 23.3 % Monocytes % 7.7 % Eosinophils % 1.4 % Basophils % 0.7 % Immature Gran # 0.03 (0.00-0.04) 10*3/uL Neutrophils # 6.04 (1.80-7.70) 10*3/uL Lymphocytes # 2.11 (0.90-5.00) 10*3/uL Monocytes # 0.70 (0.20-1.00) 10*3/uL Eosinophils # 0.13 (0.04-0.35) 10*3/uL Basophils # 0.06 (0.00-0.10) 10*3/uL Sodium 134 L (137-145) mmol/L Potassium 4.0 (3.5-5.1) mmol/L Chloride 103 (98-107) mmol/L Carbon Dioxide 22 (22-30) mmol/L Anion Gap 9 mmol/L BUN 15 (9-20) mg/dL Creatinine 1.00 (0.66-1.25) mg/dL Est GFR (CKD-EPI)AfAm >90 (>60 ml/min/1.73 sqM) Est GFR (CKD-EPI)NonAf 79 (>60 ml/min/1.73 sqM) Glucose 113 H (74-99) mg/dL Calcium 9.3 (8.4-10.2) mg/dL Total Bilirubin 0.3 (0.2-1.3) mg/dL AST 26 (17-59) U/L ALT 24 (4-49) U/L Alkaline Phosphatase 129 H (38-126) U/L Total Protein 6.3 (6.3-8.2) g/dL Albumin 3.8 (3.5-5.0) g/dL TSH 2.120 (0.465-4.680) mIU/L Urine Color Urine Appearance (Clear) Urine pH (5.0-8.0) Ur Specific [place] (1.001-1.035) Urine Protein (Negative) Urine Glucose (UA) (Negative) Urine Ketones (Negative) Urine Blood (Negative) Urine Nitrite (Negative) Urine Bilirubin (Negative) Urine Urobilinogen (<2.0) mg/dL Ur Leukocyte Esterase (Negative) Salicylates <1.0 mg/dL Urine Opiates Screen Not Detected (NotDetected) Ur Oxycodone Screen Not Detected (NotDetected) Urine Methadone Screen Not Detected (NotDetected) Acetaminophen <10.0 ug/mL Ur Barbiturates Screen Not Detected (NotDetected) U Tricyclic Antidepress Not Detected (NotDetected) Ur Phencyclidine Scrn Not Detected (NotDetected) Ur Amphetamines Screen Not Detected (NotDetected) U Methamphetamines Scrn Not Detected (NotDetected) U Benzodiazepines Scrn Detected H (NotDetected) Urine Cocaine Screen Not Detected (NotDetected) U Marijuana (THC) Screen Detected H (NotDetected) Serum Alcohol <10 mg/dL 04/18/25 Range/Units 14:51 WBC (4.50-10.00) 10*3/uL RBC (4.40-5.60) 10*6/uL Hgb (13.0-17.0) g/dL Hct (39.6-50.0) % MCV (80.0-97.0) fL MCH (27.0-32.0) pg MCHC (32.0-37.0) g/dL Plt Count (140-440) 10*3/uL MPV (9.5-12.2) fL Immature Gran % (Auto) % Neutrophils % % Lymphocytes % % Monocytes % % Eosinophils % % Basophils % % Immature Gran # (0.00-0.04) 10*3/uL Neutrophils # (1.80-7.70) 10*3/uL Lymphocytes # (0.90-5.00) 10*3/uL Monocytes # (0.20-1.00) 10*3/uL Eosinophils # (0.04-0.35) 10*3/uL Basophils # (0.00-0.10) 10*3/uL Sodium (137-145) mmol/L Potassium (3.5-5.1) mmol/L Chloride (98-107) mmol/L Carbon Dioxide (22-30) mmol/L Anion Gap mmol/L BUN (9-20) mg/dL Creatinine (0.66-1.25) mg/dL Est GFR (CKD-EPI)AfAm (>60 ml/min/1.73 sqM) Est GFR (CKD-EPI)NonAf (>60 ml/min/1.73 sqM) Glucose (74-99) mg/dL Calcium (8.4-10.2) mg/dL Total Bilirubin (0.2-1.3) mg/dL AST (17-59) U/L ALT (4-49) U/L Alkaline Phosphatase (38-126) U/L Total Protein (6.3-8.2) g/dL Albumin (3.5-5.0) g/dL TSH (0.465-4.680) mIU/L Urine Color Light Yellow Urine Appearance Clear (Clear) Urine pH 6.5 (5.0-8.0) Ur Specific [place] 1.015 (1.001-1.035) Urine Protein Negative (Negative) Urine Glucose (UA) Negative (Negative) Urine Ketones Negative (Negative) Urine Blood Negative (Negative) Urine Nitrite Negative (Negative) Urine Bilirubin Negative (Negative) Urine Urobilinogen <2.0 (<2.0) mg/dL Ur Leukocyte Esterase Negative (Negative) Salicylates mg/dL Urine Opiates Screen (NotDetected) Ur Oxycodone Screen (NotDetected) Urine Methadone Screen (NotDetected) Acetaminophen ug/mL Ur Barbiturates Screen (NotDetected) U Tricyclic Antidepress (NotDetected) Ur Phencyclidine Scrn (NotDetected) Ur Amphetamines Screen (NotDetected) U Methamphetamines Scrn (NotDetected) U Benzodiazepines Scrn (NotDetected) Urine Cocaine Screen (NotDetected) U Marijuana (THC) Screen (NotDetected) Serum Alcohol mg/dL - EKG Data EKG Comments: Sinus bradycardia with a rate of 55 bpm, normal axis, CO interval 135 MS, QRS duration 86 MS, no ST-T changes, good R wave progression, QTc 370 MS (Eliane Chase) Disposition Time of Disposition: 19:45 <Eliane Chase - Last Filed: 04/18/25 20:19> Is patient prescribed a controlled substance at d/c from ED?: No <Sayda Morris - Last Filed: 04/19/25 11:26> Clinical Impression: Adjustment reaction of adult life Disposition: HOME SELF-CARE Condition: Stable Instructions (If sedation given, give patient instructions): Stress (ED), Mood Disorders (ED) Additional Instructions: Every disease is a spectrum and a small chance still exists that a serious condition could develop, for this reason, please monitor yourself closely for new, changing or worsening symptoms, symptoms that persist beyond 48 hours, thoughts of wanting to harm or kill yourself or harm or kill others, new onset confusion, uncontrolled pain, fever, inability to tolerate/keep down fluids or your medications, inability to follow up with outpatient providers as instructed and should you experience these symptoms or should you have any further concerns for your wellbeing please return to the ED or call 911 immediately. Please stop your marijuana use as this may make your symptoms worse. PLEASE call your primary care physician as soon as possible to arrange / discuss plan for followup appointment. Appointment in the next 1-3 days is strongly encouraged if possible. PLEASE let us know here before you leave if there is anything further we can do to be of any assistance. Take care and feel Better! Referrals: Yaya Rojas, [Primary Care Provider] - 1-2 days
[2025-04-18 14:59] LABS: Basophils # (A) 0.06 10*3/uL (0.00-0.10); Basophils % (A) 0.7 %; Eosinophils # (A) 0.13 10*3/uL (0.04-0.35); Eosinophils % (A) 1.4 %; HCT 36.5 % (39.6-50.0); HGB 12.9 g/dL (13.0-17.0); Lymphocytes # (A) 2.11 10*3/uL (0.90-5.00); Lymphocytes % (A) 23.3 %; MCH 32.7 pg (27.0-32.0); MCHC 35.3 g/dL (32.0-37.0); MCV 92.4 fL (80.0-97.0); Monocytes # (A) 0.70 10*3/uL (0.20-1.00); Monocytes % (A) 7.7 %; Neutrophils # (A) 6.04 10*3/uL (1.80-7.70); Neutrophils % (A) 66.6 %; Platelet Count 271 10*3/uL (140-440); RBC 3.95 10*6/uL (4.40-5.60); RDW 14.1 % (11.5-14.5); WBC 9.07 10*3/uL (4.50-10.00)
[2025-04-18 15:01] LABS: Bilirubin,Urine Negative (Negative); Blood,Urine Negative (Negative); Color,Urine Light Yellow; Glucose,Urine (UA) Negative (Negative); Ketones,Urine Negative (Negative); Leukocyte Esterase,Urine Negative (Negative); Nitrite,Urine Negative (Negative); PH, Urine 6.5 (5.0-8.0); Protein,Urine Negative (Negative); Specific Gravity,Urine 1.015 (1.001-1.035); Urobilinogen,Urine <2.0 mg/dL (<2.0)
[2025-04-18 15:14] LABS: ALT 24 U/L (4-49); AST 26 U/L (17-59); Acetaminophen <10.0 ug/mL; African American GFR (CKD) >90 (>60 ml/min/1.73 sqM); Albumin 3.8 g/dL (3.5-5.0); Alkaline Phosphatase 129 U/L (38-126); Anion Gap 9 mmol/L; Blood Urea Nitrogen 15 mg/dL (9-20); Calcium 9.3 mg/dL (8.4-10.2); Carbon Dioxide 22 mmol/L (22-30); Chloride 103 mmol/L (98-107); Glucose 113 mg/dL (74-99); Non-African American GFR(CKD) 79 (>60 ml/min/1.73 sqM); Potassium 4.0 mmol/L (3.5-5.1); Salicylate <1.0 mg/dL; Sodium 134 mmol/L (137-145); Total Protein 6.3 g/dL (6.3-8.2)
--- NOTE | 2025-04-18 15:16 | CT ---
EXAMINATION TYPE: CT brain wo con CT DLP: 1170.8 mGycm, Automated exposure control for dose reduction was used. DATE OF EXAM: 04/18/2025 3:06 PM COMPARISON: CTA head neck 12/03/2024, CT brain 10/09/2020 CLINICAL INDICATION:Male, 64 years old with history of confusion; behavior change; word finding, conf used TECHNIQUE: Brain: Multiple axial CT images of the brain were obtained without IV contrast. . Coronal and sagitta l reformats reviewed. FINDINGS: Brain: Extra-axial spaces: No abnormal extra-axial fluid collections. Ventricular system: Within normal limits Cerebral parenchyma: No acute intraparenchymal hemorrhage or mass effect. The ribera-white junction is well differentiated. Cerebellum: Unremarkable. Mass effect: No evidence of midline shift. Intracranial vasculature: Atherosclerotic calcifications of the intracranial vessels. Soft tissues: Normal. Calvarium/osseous structures: No depressed skull fracture. Paranasal sinuses and mastoid air cells: Mucous retention cysts within the inferior bilateral maxilla ry sinuses. Minimal mucosal thickening of the inferior left frontal sinus. The remaining paranasal si nuses are clear. The mastoid air cells are clear. Visualized orbits: Orbital contents are intact. IMPRESSION: No acute intracranial process. [facility], , 04/18/2025 3:14 PM
[2025-04-18 15:22] LABS: Barbiturate Screen,Urine Not Detected (NotDetected); Benzodiazepines Screen,Urine Detected (NotDetected); Opiate Screen,Urine Not Detected (NotDetected); Oxycodone Screen, Urine Not Detected (NotDetected); Phencyclidine Screen,Urine Not Detected (NotDetected); Tricyclic Antidepressant,Urine Not Detected (NotDetected); Urn Cannabinoid Scrn Detected (NotDetected)
== END 2025-04-18 19:59 | disposition home or self-care (01) ==
LOC: EC 13:20
DX: F43.20 Adjustment disorder, unspecified (principal); F12.90 Cannabis use, unspecified, uncomplicated; F17.200 Nicotine dependence, unspecified, uncomplicated
CPT/HCPCS: 36415; 70450; 80053; 80143; 80179; 80306; 80320; 81003; 82075; 84443; 85025; 93005; 99285

== ENCOUNTER 2025-04-22 16:48 | Emergency (ER) | payer BC, MEDICARE ==
[2025-04-22 16:57] VITALS: TEMP 98.1
--- NOTE | 2025-04-22 17:11 | ED ---
General Adult HPI - General Source: patient, family Mode of arrival: wheelchair Limitations: no limitations <Robert Asher - Last Filed: 04/22/25 17:11> - General Source: patient, family, RN notes reviewed, old records reviewed Mode of arrival: wheelchair Limitations: no limitations - History of Present Illness -: hour(s) Consistency: intermittent Improves with: none Worsens with: none <Stiven Stevenson - Last Filed: 04/22/25 21:57> - General Chief complaint: Neuro Symptoms/Deficit Stated complaint: Possible stroke Time Seen by Provider: 04/22/25 17:11 - History of Present Illness Initial comments: Quick note: 64-year-old male presenting with chief complaint of numbness in the face and bilateral arms. Ongoing for about 20 minutes. States that he did smoke marijuana about an hour prior. No chest pain or difficulty breathing. (Robert Asher) This is a 64-year-old male with increasing blood pressure multiple episodes of blood pressure changing over the course of the last 2 days. Patient also has numbness and tingling in the face and arms symptoms resolved currently (Stiven Stevenson) - Related Data Home Medications Medication Instructions Recorded Confirmed Atorvastatin [Lipitor] 80 mg PO HS 10/18/20 04/18/25 Aspirin 81 mg PO DAILY 07/09/21 04/18/25 lisinopriL [Prinivil] 20 mg PO DAILY PRN 07/09/21 04/18/25 Co Q-10 (Unkown Strength) 1 dose PO DAILY 03/18/25 04/18/25 Cyclobenzaprine [Flexeril] 10 mg PO Q8H PRN 03/18/25 04/18/25 Rifaximin [Xifaxan] 550 mg PO BID 03/18/25 04/18/25 Sertraline [Zoloft] 100 mg PO DAILY 03/18/25 04/18/25 Sildenafil Citrate [Viagra] 100 mg PO DAILY PRN 03/18/25 04/18/25 Tretinoin [Tretinoin 0.025%] 1 applic TOPICAL HS 03/18/25 04/18/25 Varenicline [Chantix Continuing 1 mg PO BID 03/18/25 04/18/25 Pack] Vitamin D3 (Unkown Strength) 1 dose PO DAILY 03/18/25 04/18/25 ALPRAZolam [Xanax] 0.5 mg PO DAILY PRN 04/18/25 04/18/25 Gabapentin 300 mg PO HS 04/18/25 04/18/25 Previous Rx's Medication Instructions Recorded Acetaminophen Tab [Tylenol Tab] 650 mg PO Q4H PRN #30 tablet 03/25/25 Pantoprazole Sodium [Protonix] 40 mg PO BID #60 tab 03/25/25 Allergies Allergy/AdvReac Type Severity Reaction Status Date / Time No Known Allergies Allergy Verified 04/18/25 16:55 Review of Systems ROS Other: All systems not noted in ROS Statement are negative. <Robert Asher - Last Filed: 04/22/25 17:11> ROS Other: All systems not noted in ROS Statement are negative. <Stiven Stevenson - Last Filed: 04/22/25 21:57> ROS Statement: Those systems with pertinent positive or pertinent negative responses have been documented in the HPI. 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 ankles, enlarged prostate, sepsis History of Any Multi-Drug Resistant Organisms: None Reported Past Surgical History: Cholecystectomy Additional Past Surgical History / Comment(s): Microlaryngoscopy 11-28-18,Colonoscopy, anal fissure repair, colonoscopy with benign polypectomy Past Anesthesia/Blood Transfusion Reactions: No Reported Reaction Additional Past Anesthesia/Blood Transfusion Reaction / Comment(s): states has experienced balance issues after anesthesia Past Psychological History: Depression Smoking Status: Current every day smoker Past Alcohol Use History: None Reported Past Drug Use History: Marijuana - Past Family History Mother Family Medical History: No Reported History Sister(s) Family Medical History: Cancer Additional Family Medical History / Comment(s): breast Father Family Medical History: Hyperlipidemia, Hypertension, Myocardial Infarction ([place]) Additional Family Medical History / Comment(s): cad <Robert Asher - Last Filed: 04/22/25 17:11> General Exam Limitations: no limitations <Robert Asher - Last Filed: 04/22/25 17:11> General appearance: alert, in no apparent distress Head exam: Present: atraumatic, normocephalic, normal inspection Eye exam: Present: normal appearance, PERRL, EOMI. Absent: scleral icterus, conjunctival injection, periorbital swelling ENT exam: Present: normal exam, mucous membranes moist Neck exam: Present: normal inspection. Absent: tenderness, meningismus, lymphadenopathy Respiratory exam: Present: normal lung sounds bilaterally. Absent: respiratory distress, wheezes, rales, rhonchi, stridor Cardiovascular Exam: Present: regular rate, normal rhythm, normal heart sounds. Absent: systolic murmur, diastolic murmur, rubs, gallop, clicks GI/Abdominal exam: Present: soft, normal bowel sounds. Absent: distended, tenderness, guarding, rebound, rigid Extremities exam: Present: normal inspection, full ROM, normal capillary refill. Absent: tenderness, pedal edema, joint swelling, calf tenderness Back exam: Present: normal inspection Neurological exam: Present: alert, oriented X3, CN II-XII intact Psychiatric exam: Present: normal affect, normal mood Skin exam: Present: warm, dry, intact, normal color. Absent: rash <Stiven Stevenson - Last Filed: 04/22/25 21:57> - General Exam Comments Initial Comments: Visual Physical Exam Vital signs reviewed General: Well-appearing, nontoxic, no acute distress. Head: Normocephalic, atraumatic Eyes: PERRLA, EOMI ENT: Airway patent Chest: Nonlabored breathing Skin: No visual rash, normal skin tone Neuro: Alert and oriented 3 Musculoskeletal: No gross abnormalities (Robert Asher) Course <Stiven Stevenson - Last Filed: 04/22/25 21:57> Vital Signs 04/22/25 04/22/25 16:51 19:34 Temperature 98.1 F Pulse Rate 89 57 L Respiratory 20 18 Rate Blood Pressure 125/74 131/75 O2 Sat by Pulse 96 99 Oximetry - Reevaluation(s) Reevaluation #1: 04/22/25 21:56 Medical records reviewed (Stiven Stevenson) Reevaluation #2: 04/22/25 21:56 Patient remains asymptomatic (Stiven Stevenson) Reevaluation #3: 04/22/25 21:57 Patient informed of results questions answered (Stiven Stevenson) Reevaluation #4: Was pt. sent in by a medical professional or institution (, [facility], [employer] [facility], urgent care, hospital, or correction...) When possible be specific @ -no Did you speak to anyone other than the patient for history (EMS, parent, family, police, friend...)? What history was obtained from this source @ -no Did you review nursing and triage notes (agree or disagree)? Why? @ -agree Are old charts reviewed (outside hosp., previous admission, EMS record, old EKG, old radiological studies, urgent care reports/EKG's, correction records)? Rep ort findings @ -yes Differential Diagnosis (chest pain, altered mental status, abdominal pain women, abdominal pain men, vaginal bleeding, weakness, fever, dyspnea, syncope, headache, dizziness, GI bleed, back pain, seizure, CVA, palpatations, mental health, musculoskeletal)? @ -prior EKG interpreted by me (3pts min.). @ -yes X-rays interpreted by me (1pt min.). @ -yes negative for acute disease CT interpreted by me (1pt min.). @ -no U/S interpreted by me (1pt. min.). @ -no What testing was considered but not performed or refused? (CT, X-rays, U/S, labs)? Why? @ -none What meds were considered but not given or refused? Why? @ -none Did you discuss the management of the patient with other professionals (professionals i.e. , [facility], [facility], lab, RT, psych nurse, neonatal social worker, senior scientist, t eacher, aoc plans intelligence officer, showcase maker)? Give summary @ -no Was smoking cessation discussed for >3mins.? @ -no Was critical care preformed (if so, how long)? @ -no Were there social determinants of health that impacted care today? How? (Homelessness, low income, unemployed, alcoholism, drug addiction, transportation, low edu. Level, literacy, decrease access to med. care, senior care, rehab)? @ -none Was there de-escalation of care discussed even if they declined (Discuss DNR or withdrawal of care, Hospice)? DNR status @ -no What co-morbidities impacted this encounter? (DM, HTN, Smoking, COPD, CAD, Cancer, CVA, ARF, Chemo, Hep., AIDS, mental health diagnosis, sleep apnea, morbid obesity)? @ -none Was patient admitted / discharged? Hospital course, mention meds given and route, prescriptions, significant lab abnormalities, going to OR and other pertinent info. @ - Undiagnosed new problem with uncertain prognosis? @ -no Drug Therapy requiring intensive monitoring for toxicity (Heparin, Nitro, Insulin, Cardizem)? @ -no Were any procedures done? @ -no Diagnosis/symptom? @ - Acute, or Chronic, or Acute on Chronic? @ -Acute Uncomplicated (without systemic symptoms) or Complicated (systemic symptoms)? @ -Complicated Side effects of treatment? @ -no Exacerbation, Progression, or Severe Exacerbation? @ -exacerbation Poses a threat to life or bodily function? How? (Chest pain, [place], [place], pneumonia, PE, COPD, DKA, ARF, appy, cholecystitis, CVA, Diverticulitis, Homicidal, Suicidal, threat to staff... and all critical care pts) @ -yes (Stiven Stevenson) Medical Decision Making <Robert Asher - Last Filed: 04/22/25 17:11> - Lab Data Result diagrams: 04/22/25 17:15 04/22/25 17:15 - Radiology Data Radiology results: report reviewed (CT brain is negative for acute disease), image reviewed <Stiven Stevenson - Last Filed: 04/22/25 21:57> - Medical Decision Making I performed the quick note portion of this visit, electronically signed Robert Asher PA-C (Robert Asher) 64 male will be discharged home with asymptomatic currently asymptomatic normal CT normal lab testing (Stiven Stevenson) - Lab Data Lab Results 04/22/25 04/22/25 04/22/25 Range/Units 17:15 17:15 17:15 WBC 8.39 (4.50-10.00) 10*3/uL RBC 3.99 L (4.40-5.60) 10*6/uL Hgb 12.9 L (13.0-17.0) g/dL Hct 36.7 L (39.6-50.0) % MCV 92.0 (80.0-97.0) fL MCH 32.3 H (27.0-32.0) pg MCHC 35.1 (32.0-37.0) g/dL Plt Count 289 (140-440) 10*3/uL MPV 9.3 L (9.5-12.2) fL Immature Gran % (Auto) 0.2 % Neutrophils % 48.5 % Lymphocytes % 39.6 % Monocytes % 8.5 % Eosinophils % 2.7 % Basophils % 0.5 % Immature Gran # 0.02 (0.00-0.04) 10*3/uL Neutrophils # 4.07 (1.80-7.70) 10*3/uL Lymphocytes # 3.32 (0.90-5.00) 10*3/uL Monocytes # 0.71 (0.20-1.00) 10*3/uL Eosinophils # 0.23 (0.04-0.35) 10*3/uL Basophils # 0.04 (0.00-0.10) 10*3/uL PT 10.4 (10.0-12.5) sec INR 0.9 (<1.2) APTT 24.8 (22.0-30.0) sec Sodium 130 L (137-145) mmol/L Potassium 4.2 (3.5-5.1) mmol/L Chloride 98 (98-107) mmol/L Carbon Dioxide 23 (22-30) mmol/L Anion Gap 9 mmol/L BUN 10 (9-20) mg/dL Creatinine 1.15 (0.66-1.25) mg/dL Est GFR (CKD-EPI)AfAm 78 (>60 ml/min/1.73 sqM) Est GFR (CKD-EPI)NonAf 67 (>60 ml/min/1.73 sqM) Glucose 94 (74-99) mg/dL Calcium 9.2 (8.4-10.2) mg/dL Total Bilirubin 0.4 (0.2-1.3) mg/dL AST 26 (17-59) U/L ALT 25 (4-49) U/L Alkaline Phosphatase 131 H (38-126) U/L Creatine Kinase 63 (55-170) U/L Troponin I (0.000-0.034) ng/mL Total Protein 6.4 (6.3-8.2) g/dL Albumin 3.8 (3.5-5.0) g/dL 04/22/25 Range/Units 17:15 WBC (4.50-10.00) 10*3/uL RBC (4.40-5.60) 10*6/uL Hgb (13.0-17.0) g/dL Hct (39.6-50.0) % MCV (80.0-97.0) fL MCH (27.0-32.0) pg MCHC (32.0-37.0) g/dL Plt Count (140-440) 10*3/uL MPV (9.5-12.2) fL Immature Gran % (Auto) % Neutrophils % % Lymphocytes % % Monocytes % % Eosinophils % % Basophils % % Immature Gran # (0.00-0.04) 10*3/uL Neutrophils # (1.80-7.70) 10*3/uL Lymphocytes # (0.90-5.00) 10*3/uL Monocytes # (0.20-1.00) 10*3/uL Eosinophils # (0.04-0.35) 10*3/uL Basophils # (0.00-0.10) 10*3/uL PT (10.0-12.5) sec INR (<1.2) APTT (22.0-30.0) sec Sodium (137-145) mmol/L Potassium (3.5-5.1) mmol/L Chloride (98-107) mmol/L Carbon Dioxide (22-30) mmol/L Anion Gap mmol/L BUN (9-20) mg/dL Creatinine (0.66-1.25) mg/dL Est GFR (CKD-EPI)AfAm (>60 ml/min/1.73 sqM) Est GFR (CKD-EPI)NonAf (>60 ml/min/1.73 sqM) Glucose (74-99) mg/dL Calcium (8.4-10.2) mg/dL Total Bilirubin (0.2-1.3) mg/dL AST (17-59) U/L ALT (4-49) U/L Alkaline Phosphatase (38-126) U/L Creatine Kinase (55-170) U/L Troponin I <0.012 (0.000-0.034) ng/mL Total Protein (6.3-8.2) g/dL Albumin (3.5-5.0) g/dL Disposition <Robert Asher - Last Filed: 04/22/25 17:11> Is patient prescribed a controlled substance at d/c from ED?: No Time of Disposition: 18:30 <Stiven Stevenson - Last Filed: 04/22/25 21:57> Clinical Impression: Facial paresthesia, Hypertension Disposition: HOME SELF-CARE Condition: Good Instructions (If sedation given, give patient instructions): Paresthesia (ED) Referrals: Yaya Rojas DO [Primary Care Provider] - 1-2 days
[2025-04-22 17:30] LABS: Basophils # (A) 0.04 10*3/uL (0.00-0.10); Basophils % (A) 0.5 %; Eosinophils # (A) 0.23 10*3/uL (0.04-0.35); Eosinophils % (A) 2.7 %; HCT 36.7 % (39.6-50.0); HGB 12.9 g/dL (13.0-17.0); Lymphocytes # (A) 3.32 10*3/uL (0.90-5.00); Lymphocytes % (A) 39.6 %; MCH 32.3 pg (27.0-32.0); MCHC 35.1 g/dL (32.0-37.0); MCV 92.0 fL (80.0-97.0); Monocytes # (A) 0.71 10*3/uL (0.20-1.00); Monocytes % (A) 8.5 %; Neutrophils # (A) 4.07 10*3/uL (1.80-7.70); Neutrophils % (A) 48.5 %; Platelet Count 289 10*3/uL (140-440); RBC 3.99 10*6/uL (4.40-5.60); RDW 14.2 % (11.5-14.5); WBC 8.39 10*3/uL (4.50-10.00)
--- NOTE | 2025-04-22 17:31 | XR ---
EXAMINATION TYPE: XR chest 2V DATE OF EXAM: 04/22/2025 5:26 PM COMPARISON: Chest radiographs from 03/21/2025. CLINICAL INDICATION: Male, 64 years old with history of altered mental status; [facility] TECHNIQUE: XR chest 2V Frontal and lateral views of the chest. FINDINGS: Lungs/Pleura: There is no evidence of pleural effusion, focal consolidation, or pneumothorax. Pulmonary vascularity: Unremarkable. Heart/mediastinum: Cardiomediastinal silhouette is unremarkable. Musculoskeletal: No acute osseous pathology. Other findings: None IMPRESSION: No acute cardiopulmonary disease/process. [facility], , 04/22/2025 5:29 PM
[2025-04-22 17:47] LABS: ALT 25 U/L (4-49); AST 26 U/L (17-59); African American GFR (CKD) 78 (>60 ml/min/1.73 sqM); Albumin 3.8 g/dL (3.5-5.0); Alkaline Phosphatase 131 U/L (38-126); Anion Gap 9 mmol/L; Blood Urea Nitrogen 10 mg/dL (9-20); Calcium 9.2 mg/dL (8.4-10.2); Carbon Dioxide 23 mmol/L (22-30); Chloride 98 mmol/L (98-107); Creatine Kinase 63 U/L (55-170); Glucose 94 mg/dL (74-99); Non-African American GFR(CKD) 67 (>60 ml/min/1.73 sqM); Potassium 4.2 mmol/L (3.5-5.1); Sodium 130 mmol/L (137-145); Total Protein 6.4 g/dL (6.3-8.2)
--- NOTE | 2025-04-22 17:49 | CT ---
EXAMINATION TYPE: CT brain wo con DATE OF EXAM: 04/22/2025 5:34 PM COMPARISON: 04/18/2025. CLINICAL INDICATION: Male, 64 years old with history of Neuro deficit, acute, stroke suspected, ams, htn TECHNIQUE: Brain: Axial CT images of the brain were obtained with coronal and sagittal reformats created and rev iewed. Contrast used: None. Oral contrast used: None. CT DLP: 1159 mGycm, Automated exposure control for dose reduction was used. FINDINGS: Brain: Extra-axial spaces: No abnormal extra-axial fluid collections. Ventricular system: Within normal limits Cerebral parenchyma: No acute intraparenchymal hemorrhage or mass effect. The ribera-white junction is well differentiated. Cerebellum: Unremarkable. Mass effect: No evidence of midline shift. Intracranial vasculature: unremarkable Soft tissues: Normal. Calvarium/osseous structures: No depressed skull fracture. Paranasal sinuses and mastoid air cells: Mild scattered paranasal sinus disease. Visualized orbits: Orbital contents are intact. IMPRESSION: 1. No acute intracranial process. 2. Nonspecific white matter changes, likely secondary to chronic small vessel ischemic disease. [facility], , 04/22/2025 5:47 PM
[2025-04-22 17:56] LABS: INR 0.9 (<1.2); Partial Thromboplastin Time 24.8 sec (22.0-30.0); Prothrombin Time 10.4 sec (10.0-12.5)
[2025-04-22 19:36] VITALS: BP 131/75; PULSE 57; RESP 18
== END 2025-04-22 19:36 | disposition home or self-care (01) ==
LOC: EC 16:48
DX: I10 Essential (primary) hypertension (principal); R20.2 Paresthesia of skin; F17.200 Nicotine dependence, unspecified, uncomplicated
CPT/HCPCS: 36415; 70450; 71046; 80053; 82550; 84484; 85025; 85610; 85730; 93005; 99284